=== PATIENT | female | born 1965 | race American Indian/Alaskan Native ===

== ENCOUNTER 2017-04-04 13:10 | Emergency (ER) | payer MEDICAID ==
[2017-04-04 13:47] VITALS: BP 141/60
--- NOTE | 2017-04-04 14:09 | EDM.PDOC ---
[id number] SOMETHING ON BACK BOTHERING HER Time Seen by Provider: 04/04/17 14:12 Source of Information: Reports: Patient, RN, RN Notes Reviewed History Limitations: Reports: No Limitations - History of Present Illness INITIAL COMMENTS - FREE TEXT/NARRATIVE: Complaining of a sore red area in the "fat creases" of the midline mid-back. Onset 3 days ago, getting worse. Denies injury, fever or chills. Severity: Moderate Improves with: Reports: None Worsens with: Reports: None Associated Symptoms: Reports: No Other Symptoms Middle Back Pain Score (Numeric/FACES): 7 - Related Data Allergies Allergy/AdvReac Type Severity Reaction Status Date / Time Penicillins Allergy Other Verified 04/04/17 13:49 another antibiotic Allergy Cannot Uncoded 04/04/17 13:49 Remember Home Meds: Home Meds Albuterol [Proventil Neb Soln] 2.5 mg NEB Q4H PRN 02/03/15 [History] Ferrous Sulfate 325 mg PO DAILY 02/03/15 [History] Insulin Aspart [NovoLOG] 67 units SQ TID 02/03/15 [History] Insulin Glarg,Human.Rec.Analog [Lantus Solostar] 110 units SQ DAILY 02/03/15 [ History] Levothyroxine [Synthroid] 100 mcg PO DAILY 02/03/15 [History] Lisinopril 20 mg PO DAILY 02/03/15 [History] Magnesium Oxide 400 mg PO BID 02/03/15 [History] Omeprazole 20 mg PO DAILY 02/03/15 [History] Tiotropium [Spiriva Handihaler] 18 mcg INH DAILY 02/03/15 [History] Albuterol/Ipratropium [DuoNeb 3.0-0.5 MG/3 ML] 3 ml NEB Q6H PRN 03/06/15 [ History] Fluticasone/Salmeterol [Advair 250-50] 1 puff INH BID 03/06/15 [History] Insulin Glarg,Human.Rec.Analog [Lantus Solostar] 100 unit SUBCUT BEDTIME [History] Lactulose [Cephulac] 30 gm PO Q6H #30 cup 03/07/15 [Rx] Sennosides/Docusate Sodium [Senna S Tablet] 2 tab PO DAILY 12/17/16 [History] Fluticasone Furoate [Flonase Sensimist] 1 ml NS PRN 04/04/17 [History] Past Medical History HEENT History: Reports: Impaired Vision Cardiovascular History: Reports: Hypertension Respiratory History: Reports: Asthma, COPD, Other (See Below) Other Respiratory History: Empysema Gastrointestinal History: Reports: Cholelithiasis, Cirrhosis, GERD Genitourinary History: Reports: UTI, Recurrent EEG 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 Musculoskeletal History: Reports: None Neurological History: Reports: None Psychiatric History: Reports: None Endocrine/Metabolic History: Reports: Diabetes, Type II, Hypothyroidism, IDDM, Obesity/BMI 30+ Hematologic History: Reports: None Immunologic History: Reports: None Oncologic (Cancer) History: Reports: None Dermatologic History: Reports: None Other Dermatologic History: skin thick and discolored to extremities - Infectious Disease History Infectious Disease History: Reports: MRSA - Past Surgical History Head Surgeries/Procedures: Reports: None GI Surgical History: Reports: Cholecystectomy, Hernia Repair/Other Social & Family History - Family History Family Medical History: Noncontributory - Tobacco Use Smoking Status *Q: Never Smoker Years of Tobacco use: 10 Used Tobacco, but Quit: Yes Month Tobacco Last Used: october Second Hand Smoke Exposure: No - Caffeine Use Caffeine Use: Reports: Soda, Tea - Alcohol Use Days Per Week of Alcohol Use: 0 - Recreational Drug Use Recreational Drug Use: No - Living Situation & Occupation Living situation: Reports: , with Family Occupation: Unemployed ED ROS GENERAL - Review of Systems Review Of Systems: ROS reveals no pertinent complaints other than HPI. ED EXAM, GENERAL - Physical Exam Exam: See Below Exam Limited By: No Limitations General Appearance: Obese (morbidly) Head: Atraumatic, Normocephalic Neck: Normal Inspection, Supple, Non-Tender, Full Range of Motion Respiratory/Chest: No Respiratory Distress, Lungs Clear, Normal Breath Sounds, No Accessory Muscle Use, Chest Non-Tender Cardiovascular: Normal Peripheral Pulses, Regular Rate, Rhythm, No Edema, No Gallop, No JVD, No Murmur, No Rub Back Exam: Normal Inspection, Full Range of Motion, NT Extremities: Normal Inspection, Normal Range of Motion, Non-Tender, Normal Capillary Refill, No Pedal Edema Neurological: Alert, Oriented, CN II-XII Intact, Normal Cognition, Normal Gait, Normal Reflexes, No Motor/Sensory Deficits Psychiatric: Normal Affect, Normal Mood Skin Exam: Other (midline midback with 4cm x 2cm area of erythema with increased warmth and tenderness. Nonfluctuant.) Lymphatic: No Adenopathy Course - Vital Signs Last Recorded V/S: Last Vital Signs Temp 37.2 C 04/04/17 13:46 Pulse 93 04/04/17 13:46 Resp 22 H 04/04/17 13:46 BP 141/60 H 04/04/17 13:46 Pulse Ox 92 L 04/04/17 13:46 - Orders/Labs/Meds Meds: Medications Discontinued Medications Generic Name Dose Route Start Last Admin Trade Name Navneetq PRN Reason Stop Dose Admin Clindamycin HCl 300 mg 04/04/17 14:12 04/04/17 14:24 Cleocin PO 04/04/17 14:13 300 mg ONETIME ONE Administration Fluconazole 200 mg 04/04/17 14:12 04/04/17 14:25 Diflucan PO 04/04/17 14:13 200 mg ONETIME ONE Administration Departure - Departure Time of Disposition: 14:13 Disposition: Home, Self-Care 01 Condition: good Clinical Impression: Cellulitis of back, Candidiasis, skin or nails - Discharge Information Instructions: Cellulitis, Adult, [id number], Skin Yeast Infection Forms: ED Department Discharge Additional Instructions: RX: Clindamycin 300mg. RX: Bactroban ointment 2%. RX: Diflucan 100mg. Follow up clinic with Dr. Casillas next week.
[2017-04-04] MEDS ORDERED: Clindamycin HCl 150 MG Cap PO ONE (14:12)
[2017-04-04] MEDS ORDERED: Fluconazole 100 MG Tab PO ONE (14:12)
== END 2017-04-04 14:30 | disposition home or self-care (01) ==
LOC: DL.ED 13:10
DX: L03.312 Cellulitis of back [any part except buttock and flank] (principal); B37.2 Candidiasis of skin and nail; H54.7 Unspecified visual loss; I10 Essential (primary) hypertension; J45.909 Unspecified asthma, uncomplicated; J44.1 Chronic obstructive pulmonary disease with (acute) exacerbation; E11.9 Type 2 diabetes mellitus without complications; E03.9 Hypothyroidism, unspecified; E66.9 Obesity, unspecified; Z98.890 Other specified postprocedural states; Z88.0 Allergy status to penicillin; Z88.1 Allergy status to other antibiotic agents; Z79.84 Long term (current) use of oral hypoglycemic drugs; Z79.899 Other long term (current) drug therapy; Z68.43 Body mass index [BMI] 50.0-59.9, adult
CPT/HCPCS: 99283; A9270

== ENCOUNTER 2017-04-17 09:02 | Emergency (ER) | payer MEDICAID ==
--- NOTE | 2017-04-17 09:33 | EDM.PDOC ---
ED HPI GENERAL MEDICAL PROBLEM - General Chief Complaint: Gastrointestinal Problem Stated Complaint: STOMACH PAINS Time Seen by Provider: 04/17/17 09:15 Source of Information: Reports: Patient History Limitations: Reports: No Limitations - History of Present Illness INITIAL COMMENTS - FREE TEXT/NARRATIVE: This 52 yo female patient reports to the ED with lower abdominal pain for the past week. The patient reports frequent urination and dysuria. The patient reports she was seen by a GI specialist 2 days ago but did not mention her current symptoms. The patient has not been seen in the clinic for her current symptoms. The patient also reports she has chronic lower back pain, but no doctor will treat her pain. The patient was seen in the ED 2 weeks ago for a cellulitis on her back and was started on Clindamycin. The patient reports she took the medication for 2 days, but quit taking it because it made her side hurt. The patient was supposed to follow-up with her primary care facility last week, but the patient did not get an appointment due to her primary care provider leaving the clinic. Onset Date: 04/10/17 Duration: Constant, Getting Worse Location: Reports: Abdomen (lower abdomen) Quality: Reports: Ache, Dull Severity: Moderate Improves with: Reports: None Worsens with: Reports: None Context: Reports: Other Associated Symptoms: Reports: No Other Symptoms Lower Pelvic Pain Score (Numeric/FACES): 7 - Related Data Allergies Allergy/AdvReac Type Severity Reaction Status Date / Time Penicillins Allergy Other Verified 04/17/17 09:13 another antibiotic Allergy Cannot Uncoded 04/17/17 09:13 Remember Home Meds: Home Meds Albuterol [Proventil Neb Soln] 2.5 mg NEB Q4H PRN 02/03/15 [History] Ferrous Sulfate 325 mg PO DAILY 02/03/15 [History] Insulin Aspart [NovoLOG] 67 units SQ TID 02/03/15 [History] Insulin Glarg,Human.Rec.Analog [Lantus Solostar] 110 units SQ DAILY 02/03/15 [ History] Levothyroxine [Synthroid] 100 mcg PO DAILY 02/03/15 [History] Lisinopril 20 mg PO DAILY 02/03/15 [History] Magnesium Oxide 400 mg PO BID 02/03/15 [History] Omeprazole 20 mg PO DAILY 02/03/15 [History] Tiotropium [Spiriva Handihaler] 18 mcg INH DAILY 02/03/15 [History] Albuterol/Ipratropium [DuoNeb 3.0-0.5 MG/3 ML] 3 ml NEB Q6H PRN 03/06/15 [ History] Fluticasone/Salmeterol [Advair 250-50] 1 puff INH BID 03/06/15 [History] Insulin Glarg,Human.Rec.Analog [Lantus Solostar] 100 unit SUBCUT BEDTIME [History] Lactulose [Cephulac] 30 gm PO Q6H #30 cup 03/07/15 [Rx] Sennosides/Docusate Sodium [Senna S Tablet] 2 tab PO DAILY 12/17/16 [History] Fluticasone Furoate [Flonase Sensimist] 1 ml NS DAILY PRN 04/04/17 [History] Past Medical History HEENT History: Reports: Impaired Vision Cardiovascular History: Reports: Hypertension Respiratory History: Reports: Asthma, COPD, Other (See Below) Other Respiratory History: Empysema Gastrointestinal History: Reports: Cholelithiasis, Cirrhosis, GERD Genitourinary History: Reports: UTI, Recurrent 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 Musculoskeletal History: Reports: None Neurological History: Reports: None Psychiatric History: Reports: None Endocrine/Metabolic History: Reports: Diabetes, Type II, Hypothyroidism, IDDM, Obesity/BMI 30+ Hematologic History: Reports: None Immunologic History: Reports: None Oncologic (Cancer) History: Reports: None Dermatologic History: Reports: None Other Dermatologic History: skin thick and discolored to extremities - Infectious Disease History Infectious Disease History: Reports: MRSA - Past Surgical History Head Surgeries/Procedures: Reports: None GI Surgical History: Reports: Cholecystectomy, Hernia Repair/Other Social & Family History - Family History Family Medical History: Noncontributory - Tobacco Use Smoking Status *Q: Never Smoker Years of Tobacco use: 10 Used Tobacco, but Quit: Yes Month Tobacco Last Used: october Second Hand Smoke Exposure: No - Caffeine Use Caffeine Use: Reports: Soda, Tea - Alcohol Use Days Per Week of Alcohol Use: 0 - Recreational Drug Use Recreational Drug Use: No - Living Situation & Occupation Living situation: Reports: , with Family Occupation: Unemployed ED ROS GENERAL - Review of Systems Review Of Systems: ROS reveals no pertinent complaints other than HPI. ED EXAM, GI/ABD - Physical Exam Exam: See Below Exam Limited By: No Limitations General Appearance: Alert, WD/WN, Mild Distress, Obese (morbid obesity) Eyes: Bilateral: Normal Appearance, EOMI Ears: Normal External Exam, Normal Canal, Hearing Grossly Normal, Normal TMs Nose: Normal Inspection, Normal Mucosa, No Blood Throat/Mouth: Normal Inspection, Normal Lips, Normal Teeth, Normal Gums, Normal Oropharynx, Normal Voice, No Airway Compromise Head: Atraumatic, Normocephalic Neck: Normal Inspection, Supple, Non-Tender, Full Range of Motion Respiratory/Chest: No Respiratory Distress, Lungs Clear, Normal Breath Sounds, No Accessory Muscle Use, Chest Non-Tender Cardiovascular: Normal Peripheral Pulses, Regular Rate, Rhythm, No Edema, No Gallop, No JVD, No Murmur, No Rub GI/Abdominal: Normal Bowel Sounds, Soft, Non-Tender, No Organomegaly, No Distention, No Abnormal Bruit, No Mass, Pelvis Stable, Other (morbid obesity) (Female) Exam: Deferred Rectal (Female) Exam: Deferred Back Exam: Normal Inspection, Full Range of Motion Extremities: Normal Inspection, Normal Range of Motion, Non-Tender, Normal Capillary Refill, No Pedal Edema Neurological: Alert, Oriented, CN II-XII Intact, Normal Cognition, Normal Gait, Normal Reflexes, No Motor/Sensory Deficits Psychiatric: Normal Affect, Normal Mood Skin Exam: Warm, Dry, Intact, Normal Color, No Rash Lymphatic: No Adenopathy Course - Vital Signs Last Recorded V/S: Last Vital Signs Temp 36.2 C 04/17/17 11:50 Pulse 69 04/17/17 11:50 Resp 18 04/17/17 11:50 BP 139/71 04/17/17 11:50 Pulse Ox 93 L 04/17/17 11:50 - Orders/Labs/Meds Orders: Active Orders 24 hr Category Date Time Status Abdomen Pelvis w Cont [CT] Urgent Exams 04/17/17 10:32 Taken Labs: Laboratory Tests 04/17/17 04/17/17 04/17/17 Range/Units 09:30 09:30 10:03 WBC 4.0 L (5.0-10.0) 10^3/uL RBC 4.54 (4.2-5.4) 10^6/uL Hgb 15.6 (12.0-16.0) g/dL Hct 45.9 (37.0-47.0) % MCV 101.1 H (80-100) fL MCH 34.4 H (27.0-34.0) pg MCHC 34.0 (33.0-35.0) g/dL Plt Count 83 L (150-450) 10^3/uL Neut % (Auto) 49.9 (42.2-75.2) % Lymph % (Auto) 32.8 (20.5-50.1) % [place] % (Auto) 11.4 H (2-8) % Eos % (Auto) 5.6 H (1.0-3.0) % Baso % (Auto) 0.3 (0.0-1.0) % Sodium 139 (135-145) mmol/L Potassium 4.1 (3.6-5.0) mmol/L Chloride 106 (101-111) mmol/L Carbon Dioxide 23.0 (21.0-31.0) mmol/L Anion Gap 14.1 BUN 9 (7-18) mg/dL Creatinine 0.4 L (0.6-1.3) mg/dL Est Cr Clr Drug Dosing 138.84 mL/min Estimated GFR (MDRD) > 60 BUN/Creatinine Ratio 22.50 Glucose 127 H (74-105) mg/dL Calcium 8.8 (8.4-10.2) mg/dl Total Bilirubin 1.4 H (0.2-1.0) mg/dL AST 45 H (10-42) IU/L ALT 24 (10-60) IU/L Alkaline Phosphatase 151 H (42-121) IU/L Total Protein 7.4 (6.7-8.2) g/dl Albumin 2.9 L (3.2-5.5) g/dl Globulin 4.5 Albumin/Globulin Ratio 0.64 Amylase 71 (28-100) U/L Lipase 40 (22-51) U/L Urine Color (YELLOW) Urine Appearance (CLEAR) Urine pH (5.0-9.0) Ur Specific [place] (1.005-1.030) Urine Protein (NEGATIVE) Urine Glucose (UA) (NEGATIVE) Urine Ketones (NEGATIVE) Urine Occult Blood (NEGATIVE) Urine Nitrite (NEGATIVE) Urine Bilirubin (NEGATIVE) Urine Urobilinogen (0.2-1.0) mg/dL Ur Leukocyte Esterase (NEGATIVE) Urine RBC /HPF Urine WBC (0-5/HPF) /HPF Ur Epithelial Cells /HPF Urine Bacteria (0-FEW/HPF) /HPF Urine Mucus /LPF Urine Opiates Screen Negative (NEGATIVE) Ur Oxycodone Screen Negative (NEGATIVE) Urine Methadone Screen Negative (NEGATIVE) Ur Barbiturates Screen Negative (NEGATIVE) U Tricyclic Antidepress Negative (NEGATIVE) Ur Phencyclidine Scrn Negative (NEGATIVE) Ur Amphetamine Screen Negative (NEGATIVE) U Methamphetamines Scrn Negative (NEGATIVE) Urine MDMA Screen Negative (NEGATIVE) U Benzodiazepines Scrn Negative (NEGATIVE) Urine Cocaine Screen Negative (NEGATIVE) U Marijuana (THC) Screen Negative (NEGATIVE) 04/17/17 Range/Units 10:03 WBC (5.0-10.0) 10^3/uL RBC (4.2-5.4) 10^6/uL Hgb (12.0-16.0) g/dL Hct (37.0-47.0) % MCV (80-100) fL MCH (27.0-34.0) pg MCHC (33.0-35.0) g/dL Plt Count (150-450) 10^3/uL Neut % (Auto) (42.2-75.2) % Lymph % (Auto) (20.5-50.1) % [place] % (Auto) (2-8) % Eos % (Auto) (1.0-3.0) % Baso % (Auto) (0.0-1.0) % Sodium (135-145) mmol/L Potassium (3.6-5.0) mmol/L Chloride (101-111) mmol/L Carbon Dioxide (21.0-31.0) mmol/L Anion Gap BUN (7-18) mg/dL Creatinine (0.6-1.3) mg/dL Est Cr Clr Drug Dosing mL/min Estimated GFR (MDRD) BUN/Creatinine Ratio Glucose (74-105) mg/dL Calcium (8.4-10.2) mg/dl Total Bilirubin (0.2-1.0) mg/dL AST (10-42) IU/L ALT (10-60) IU/L Alkaline Phosphatase (42-121) IU/L Total Protein (6.7-8.2) g/dl Albumin (3.2-5.5) g/dl Globulin Albumin/Globulin Ratio Amylase (28-100) U/L Lipase (22-51) U/L Urine Color Straw (YELLOW) Urine Appearance Clear (CLEAR) Urine pH 6.5 (5.0-9.0) Ur Specific [place] 1.020 (1.005-1.030) Urine Protein Negative (NEGATIVE) Urine Glucose (UA) Negative (NEGATIVE) Urine Ketones Negative (NEGATIVE) Urine Occult Blood Negative (NEGATIVE) Urine Nitrite Negative (NEGATIVE) Urine Bilirubin Negative (NEGATIVE) Urine Urobilinogen 0.2 (0.2-1.0) mg/dL Ur Leukocyte Esterase Negative (NEGATIVE) Urine RBC Not seen /HPF Urine WBC Not seen (0-5/HPF) /HPF Ur Epithelial Cells Moderate H /HPF Urine Bacteria Rare (0-FEW/HPF) /HPF Urine Mucus Few H /LPF Urine Opiates Screen (NEGATIVE) Ur Oxycodone Screen (NEGATIVE) Urine Methadone Screen (NEGATIVE) Ur Barbiturates Screen (NEGATIVE) U Tricyclic Antidepress (NEGATIVE) Ur Phencyclidine Scrn (NEGATIVE) Ur Amphetamine Screen (NEGATIVE) U Methamphetamines Scrn (NEGATIVE) Urine MDMA Screen (NEGATIVE) U Benzodiazepines Scrn (NEGATIVE) Urine Cocaine Screen (NEGATIVE) U Marijuana (THC) Screen (NEGATIVE) Meds: Medications Discontinued Medications Generic Name Dose Route Start Last Admin Trade Name Freq PRN Reason Stop Dose Admin Iopamidol 100 ml 04/17/17 10:32 Isovue-300 (61%) IVPUSH 04/17/17 10:33 ONETIME ONE Iopamidol 50 ml 04/17/17 10:42 04/17/17 10:59 Isovue-300 (61%) IVPUSH 04/17/17 10:43 50 ml ONETIME ONE Administration Iopamidol 75 ml 04/17/17 10:43 04/17/17 10:59 Isovue-300 (61%) IVPUSH 04/17/17 10:44 75 ml ONETIME ONE Administration Departure - Departure Time of Disposition: 12:00 Disposition: DC/Tfer to [facility] 02 Condition: Fair Clinical Impression: Hernia of small intestine - Discharge Information Forms: Interfacility Transfer EMTALA Care Plan Goals: Discussed the examination, lab and CT results with Dr. Sainz (Hospitalist with [facility] in [place]). Dr. Sainz accepted the patient for continued evaluation and treatment at [facility] in [place]. The patient will be transported by [facility]. - My Orders Last 24 Hours: My Active Orders 04/17/17 10:32 Abdomen Pelvis w Cont [CT] Urgent - Assessment/Plan Last 24 Hours: My Active Orders 04/17/17 10:32 Abdomen Pelvis w Cont [CT] Urgent
[2017-04-17 09:57] LABS: CHLORIDE,CL 106 mmol/L (101-111); SODIUM,NA 139 mmol/L (135-145)
[2017-04-17] MEDS ORDERED: Iopamidol 612 MG/ML 100 ML Bottle IVPUSH ONE (10:32)
[2017-04-17] MEDS ORDERED: Iopamidol 612 MG/ML 50 ML SDV IVPUSH ONE (10:42)
[2017-04-17] MEDS ORDERED: Iopamidol 612 MG/ML 75 ML Bottle IVPUSH ONE (10:43)
[2017-04-17 11:51] VITALS: BP 139/71
--- NOTE | 2017-04-17 12:07 | CT ---
Clinical history: 52-year-old morbidly obese (148 kg) hypertensive and diabetic female with lower ab dominal pain. History of Cholecystectomy. Scan technique: Volume acquisition of data from the abdomen and pelvis obtained without oral contras t but during intravenous administration 125 cc nonionic Isovue contrast while the patient was lying supine on the Siemens multi slice CT scanner [place], [place]. All da ta archived in the PACS system for storage, reformatting and study. Interpretation: Abnormal. 1. Surgical mesh right lower quadrant of the abdomen. 2. Ventral wall defect above the mesh, right of midline, with large herniation intraperitoneal fat ( no bowel). 3.*Midline, ventral wall defect with single herniated (incarcerated) loop of small bowel but no asso ciated signs of mechanical small bowel obstruction at this time. 4. No abdominal or pelvic mass lesion, inflammatory "dirty" peritoneal fat, mechanical bowel obstruc tion, ascites or free air. 5. Surgical clips gallbladder fossa. Normal liver, stomach, spleen, pancreas, adrenal glands and kid neys. Urinary bladder unremarkable. Normal uterus left of midline. 6. Normal caliber aortoiliac vessels. Asthmatic changes lumbar spine. Lung bases clear. CONCLUSION: Two ventral wall hernias (peritoneal fat and bowel loop, respectively). Cholecystectomy. Morbid obes ity.
== END 2017-04-17 12:45 ==
LOC: DL.ED 09:02
DX: K46.9 Unspecified abdominal hernia without obstruction or gangrene (principal); I10 Essential (primary) hypertension; J45.909 Unspecified asthma, uncomplicated; J44.9 Chronic obstructive pulmonary disease, unspecified; K21.9 Gastro-esophageal reflux disease without esophagitis; E11.9 Type 2 diabetes mellitus without complications; E03.9 Hypothyroidism, unspecified; E66.9 Obesity, unspecified; Z90.710 Acquired absence of both cervix and uterus; Z87.440 Personal history of urinary (tract) infections; Z88.0 Allergy status to penicillin; Z88.1 Allergy status to other antibiotic agents; Z79.4 Long term (current) use of insulin; Z79.899 Other long term (current) drug therapy
CPT/HCPCS: 36415; 74177; 80053; 80305; 81001; 82150; 83690; 85025; 99285; Q9967

== ENCOUNTER 2017-06-22 19:00 | Emergency (ER) | payer MEDICAID ==
[2017-06-22 21:03] LABS: CHLORIDE,CL 105 mmol/L (101-111); SODIUM,NA 136 mmol/L (135-145)
[2017-06-22] MEDS ORDERED: Iopamidol 612 MG/ML 100 ML Bottle IVPUSH ONE (22:34)
[2017-06-22] MEDS ORDERED: Morphine 2 MG/ML Syringe IVPUSH ONE (23:28)
[2017-06-22] MEDS ORDERED: Ondansetron 4 MG/2 ML SDV IV ONE (23:29)
[2017-06-22 23:39] VITALS: BP 123/53
--- NOTE | 2017-06-23 04:06 | EDM.PDOC ---
ED HPI GENERAL MEDICAL PROBLEM - General Chief Complaint: Abdominal Pain Stated Complaint: STOMACH PAINS Time Seen by Provider: 06/22/17 22:00 Source of Information: Reports: Patient History Limitations: Reports: No Limitations - History of Present Illness INITIAL COMMENTS - FREE TEXT/NARRATIVE: ED with complaint of left mid abdominal pain starting this am after vomiting following breakfast. Known hx of hernias to abdomen. Intermittent nausea, no further vomiting. No fever. Hx cirrhosis. Takes Lactulose 4 times daily, States is compliant with medication. 4 loose stools today. Onset: Today Duration: Hour(s): Location: Reports: Abdomen Quality: Reports: Ache Severity: Moderate Improves with: Reports: Immobilization Worsens with: Reports: Movement Associated Symptoms: Reports: No Other Symptoms Abdominal Pain Score (Numeric/FACES): 0 - Related Data Allergies Allergy/AdvReac Type Severity Reaction Status Date / Time Penicillins Allergy Other Verified 06/22/17 20:08 another antibiotic Allergy Cannot Uncoded 04/17/17 09:13 Remember Home Meds: Home Meds Albuterol [Proventil Neb Soln] 2.5 mg NEB Q4H PRN 02/03/15 [History] Ferrous Sulfate 325 mg PO DAILY 02/03/15 [History] Insulin Aspart [NovoLOG] 67 units SQ TID 02/03/15 [History] Levothyroxine [Synthroid] 100 mcg PO DAILY 02/03/15 [History] Lisinopril 20 mg PO DAILY 02/03/15 [History] Magnesium Oxide 400 mg PO BID 02/03/15 [History] Omeprazole 20 mg PO DAILY 02/03/15 [History] Tiotropium [Spiriva Handihaler] 18 mcg INH DAILY 02/03/15 [History] Albuterol/Ipratropium [DuoNeb 3.0-0.5 MG/3 ML] 3 ml NEB Q6H PRN 03/06/15 [ History] Fluticasone/Salmeterol [Advair 250-50] 1 puff INH BID 03/06/15 [History] Insulin Glarg,Human.Rec.Analog [Lantus Solostar] 30 unit SUBCUT BEDTIME [History] Sennosides/Docusate Sodium [Senna S Tablet] 2 tab PO ASDIRECTED 12/17/16 [ History] Fluticasone Furoate [Flonase Sensimist] 1 ml NS DAILY PRN 04/04/17 [History] Lactulose [Cephulac] 45 ml PO Q6H 06/22/17 [History] Past Medical History HEENT History: Reports: Impaired Vision Cardiovascular History: Reports: Hypertension Respiratory History: Reports: Asthma, COPD, Other (See Below) Other Respiratory History: Empysema Gastrointestinal History: Reports: Cholelithiasis, Cirrhosis, GERD Genitourinary History: Reports: UTI, Recurrent 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, Musculoskeletal History: Reports: None, Arthritis, Back Pain, Chronic Neurological History: Reports: None Psychiatric History: Reports: None Endocrine/Metabolic History: Reports: Diabetes, Type II, Hypothyroidism, IDDM, Obesity/BMI 30+ Hematologic History: Reports: None Immunologic History: Reports: None Oncologic (Cancer) History: Reports: None Dermatologic History: Reports: None Other Dermatologic History: skin thick and discolored to extremities - Infectious Disease History Infectious Disease History: Reports: MRSA - Past Surgical History Head Surgeries/Procedures: Reports: None GI Surgical History: Reports: Cholecystectomy, Hernia Repair/Other Female Surgical History: Reports: Section Musculoskeletal Surgical History: Reports: Other (See Below) Other Musculoskeletal Surgeries/Procedures:: Emil in left leg. Femur bone with pins in knee Social & Family History - Family History Family Medical History: Noncontributory - Tobacco Use Smoking Status *Q: Never Smoker Years of Tobacco use: 10 Used Tobacco, but Quit: Yes Month Tobacco Last Used: october Second Hand Smoke Exposure: No - Caffeine Use Caffeine Use: Reports: Soda, Tea - Alcohol Use Days Per Week of Alcohol Use: 0 - Recreational Drug Use Recreational Drug Use: No - Living Situation & Occupation Living situation: Reports: , with Family Occupation: Unemployed ED ROS GENERAL - Review of Systems Review Of Systems: See Below Constitutional: Reports: No Symptoms HEENT: Reports: No Symptoms Cardiovascular: Reports: No Symptoms Endocrine: Reports: No Symptoms GI/Abdominal: Reports: Abdominal Pain : Reports: No Symptoms Musculoskeletal: Reports: No Symptoms Skin: Reports: No Symptoms Neurological: Reports: No Symptoms ED EXAM, GI/ABD - Physical Exam Exam: See Below Exam Limited By: No Limitations General Appearance: Alert, Mild Distress, Obese (morbid) Eyes: Bilateral: EOMI Ears: Normal External Exam Nose: Normal Inspection Throat/Mouth: Normal Inspection, Normal Lips Head: Atraumatic, Normocephalic Neck: Normal Inspection, Non-Tender, Full Range of Motion, Tender Lateral Respiratory/Chest: No Respiratory Distress, No Accessory Muscle Use, Decreased Breath Sounds Cardiovascular: Normal Peripheral Pulses, Regular Rate, Rhythm GI/Abdominal Exam: Soft. No: Distended, Guarding Extremities: Normal Inspection Neurological: Alert, Oriented Psychiatric: Normal Affect Skin Exam: Warm, Dry, Intact, Normal Color Course - Vital Signs Last Recorded V/S: Last Vital Signs Temp 96.4 F 06/22/17 23:38 Pulse 64 06/22/17 23:38 Resp 20 06/22/17 23:38 BP 123/53 L 06/22/17 23:38 Pulse Ox 96 06/22/17 23:38 - Orders/Labs/Meds Orders: Active Orders 24 hr Category Date Time Status Glucose [Blood Glucose Check, Bedside] [RC] ONETIME Care 06/22/17 23:35 Active Labs: Laboratory Tests 06/22/17 06/22/17 06/22/17 Range/Units 20:22 20:35 20:35 WBC 4.2 L (5.0-10.0) 10^3/uL RBC 4.27 (4.2-5.4) 10^6/uL Hgb 14.8 (12.0-16.0) g/dL Hct 43.3 (37.0-47.0) % MCV 101.4 H (80-100) fL MCH 34.7 H (27.0-34.0) pg MCHC 34.2 (33.0-35.0) g/dL Plt Count 73 L (150-450) 10^3/uL Neut % (Auto) 61.1 (42.2-75.2) % Lymph % (Auto) 22.7 (20.5-50.1) % Crawford % (Auto) 11.2 H (2-8) % Eos % (Auto) 4.5 H (1.0-3.0) % Baso % (Auto) 0.5 (0.0-1.0) % Sodium 136 (135-145) mmol/L Potassium 4.1 (3.6-5.0) mmol/L Chloride 105 (101-111) mmol/L Carbon Dioxide 23.0 (21.0-31.0) mmol/L Anion Gap 12.1 BUN 10 (7-18) mg/dL Creatinine 0.6 (0.6-1.3) mg/dL Est Cr Clr Drug Dosing 92.56 mL/min Estimated GFR (MDRD) > 60 BUN/Creatinine Ratio 16.66 Glucose 210 H (74-105) mg/dL POC Glucose (70-105) mg/dl Calcium 8.5 (8.4-10.2) mg/dl Total Bilirubin 1.6 H (0.2-1.0) mg/dL AST 48 H (10-42) IU/L ALT 29 (10-60) IU/L Alkaline Phosphatase 172 H (42-121) IU/L Ammonia (11-35) umol/L Total Protein 7.1 (6.7-8.2) g/dl Albumin 2.7 L (3.2-5.5) g/dl Globulin 4.4 Albumin/Globulin Ratio 0.61 Amylase 65 (28-100) U/L Lipase 38 (22-51) U/L Urine Color Yellow (YELLOW) Urine Appearance Cloudy (CLEAR) Urine pH 6.0 (5.0-9.0) Ur Specific [place] 1.025 (1.005-1.030) Urine Protein Trace H (NEGATIVE) Urine Glucose (UA) 250 H (NEGATIVE) Urine Ketones Trace H (NEGATIVE) Urine Occult Blood Negative (NEGATIVE) Urine Nitrite Negative (NEGATIVE) Urine Bilirubin Small H (NEGATIVE) Urine Urobilinogen 2.0 H (0.2-1.0) mg/dL Ur Leukocyte Esterase Trace H (NEGATIVE) Urine RBC 0-5 /HPF Urine WBC 5-10 H (0-5/HPF) /HPF Ur Epithelial Cells Many H /HPF Urine Bacteria Moderate H (0-FEW/HPF) /HPF Urine Mucus Few H /LPF Ethyl Alcohol < 5 mg/dL 06/22/17 06/22/17 Range/Units 20:35 23:42 WBC (5.0-10.0) 10^3/uL RBC (4.2-5.4) 10^6/uL Hgb (12.0-16.0) g/dL Hct (37.0-47.0) % MCV (80-100) fL MCH (27.0-34.0) pg MCHC (33.0-35.0) g/dL Plt Count (150-450) 10^3/uL Neut % (Auto) (42.2-75.2) % Lymph % (Auto) (20.5-50.1) % Crawford % (Auto) (2-8) % Eos % (Auto) (1.0-3.0) % Baso % (Auto) (0.0-1.0) % Sodium (135-145) mmol/L Potassium (3.6-5.0) mmol/L Chloride (101-111) mmol/L Carbon Dioxide (21.0-31.0) mmol/L Anion Gap BUN (7-18) mg/dL Creatinine (0.6-1.3) mg/dL Est Cr Clr Drug Dosing mL/min Estimated GFR (MDRD) BUN/Creatinine Ratio Glucose (74-105) mg/dL POC Glucose 132 H (70-105) mg/dl Calcium (8.4-10.2) mg/dl Total Bilirubin (0.2-1.0) mg/dL AST (10-42) IU/L ALT (10-60) IU/L Alkaline Phosphatase (42-121) IU/L Ammonia 85 H (11-35) umol/L Total Protein (6.7-8.2) g/dl Albumin (3.2-5.5) g/dl Globulin Albumin/Globulin Ratio Amylase (28-100) U/L Lipase (22-51) U/L Urine Color (YELLOW) Urine Appearance (CLEAR) Urine pH (5.0-9.0) Ur Specific [place] (1.005-1.030) Urine Protein (NEGATIVE) Urine Glucose (UA) (NEGATIVE) Urine Ketones (NEGATIVE) Urine Occult Blood (NEGATIVE) Urine Nitrite (NEGATIVE) Urine Bilirubin (NEGATIVE) Urine Urobilinogen (0.2-1.0) mg/dL Ur Leukocyte Esterase (NEGATIVE) Urine RBC /HPF Urine WBC (0-5/HPF) /HPF Ur Epithelial Cells /HPF Urine Bacteria (0-FEW/HPF) /HPF Urine Mucus /LPF Ethyl Alcohol mg/dL Meds: Medications Discontinued Medications Generic Name Dose Route Start Last Admin Trade Name Freq PRN Reason Stop Dose Admin Iopamidol 100 ml 06/22/17 22:34 06/22/17 22:40 Isovue-300 (61%) IVPUSH 06/22/17 22:35 100 ml ONETIME ONE Administration Morphine Sulfate 2 mg 06/22/17 23:28 06/22/17 23:35 Morphine IVPUSH 06/22/17 23:29 2 mg ONETIME ONE Administration Ondansetron HCl 4 mg 06/22/17 23:29 06/22/17 23:34 Zofran IV 06/22/17 23:30 4 mg ONETIME ONE Administration - Radiology Interpretation Free Text/Narrative:: CT abdomen with contrast multiple abdominal hernias with appearance of small section of tranverse colon with in wall of hernia with mild inflammation. - Re-Assessments/Exams Free Text/Narrative Re-Assessment/Exam: 06/23/17 04:[address] Aaron, accepting of patient for further eval and management of probable incarcerated hernia. Tx via [facility] in stable condition Departure - Departure Time of Disposition: 00:10 Disposition: DC/Tfer to Acute Hospital 02 Condition: Undetermined Clinical Impression: Abdominal pain Qualifiers: Abdominal location: generalized Qualified Code(s): R10.84 - Generalized abdominal pain Abdominal hernia Qualifiers: Hernia type: incisional Obstruction and gangrene presence: with obstruction but without gangrene Qualified Code(s): K43.0 - Incisional hernia with obstruction, without gangrene - Discharge Information Forms: ED Department Discharge - My Orders Last 24 Hours: My Active Orders 06/22/17 23:35 Glucose [Blood Glucose Check, Bedside] [] ONETIME - Assessment/Plan Last 24 Hours: My Active Orders 06/22/17 23:35 Glucose [Blood Glucose Check, Bedside] [RC] ONETIME
== END 2017-06-23 00:22 ==
LOC: DL.ED 19:00
DX: K43.0 Incisional hernia with obstruction, without gangrene (principal); H54.7 Unspecified visual loss; I10 Essential (primary) hypertension; J44.9 Chronic obstructive pulmonary disease, unspecified; K21.9 Gastro-esophageal reflux disease without esophagitis; E11.9 Type 2 diabetes mellitus without complications; E03.9 Hypothyroidism, unspecified; E66.9 Obesity, unspecified; Z87.440 Personal history of urinary (tract) infections; Z88.0 Allergy status to penicillin; Z88.1 Allergy status to other antibiotic agents; Z79.4 Long term (current) use of insulin; Z79.899 Other long term (current) drug therapy
CPT/HCPCS: 36415; 74177; 80053; 81001; 82140; 82150; 82962; 83690; 85025; 96374; 96375; 99285; G0480; J2270; J2405; Q9967

== ENCOUNTER 2017-10-23 12:25 | Emergency (ER) | payer MEDICAID ==
[2017-10-23] MEDS ORDERED: Sodium Chloride 0.9% 10 ML Syringe FLUSH PRN (12:34)
[2017-10-23] MEDS ORDERED: Midazolam 1 MG/ML 2 ML SDV IM ONE ×2 (12:36→13:34)
--- NOTE | 2017-10-23 12:38 | EDM.PDOC ---
ED HPI GENERAL MEDICAL PROBLEM - General Chief Complaint: Neurological Problem Stated Complaint: CAME BY AMBULANCE, CHANGE IN MENTAL STATUS Time Seen by Provider: 10/23/17 12:38 Source of Information: Reports: Patient, EMS, EMS Notes Reviewed, Family, RN, RN Notes Reviewed History Limitations: Reports: Altered Mental Status, Combative/Threatening, Uncooperative - History of Present Illness INITIAL COMMENTS - FREE TEXT/NARRATIVE: Pt brought to the ER per [facility] with altered mental status and combativeness. The patient has a history of liver failure and hepatic encephalopathy. Family states she may not have been taking her medications as directed. They state she began acting combative and confused this morning. Family denies any further problems at this time. Onset: Today, Sudden - Related Data Allergies Allergy/AdvReac Type Severity Reaction Status Date / Time Penicillins Allergy Other Verified 06/22/17 20:08 another antibiotic Allergy Cannot Uncoded 04/17/17 09:13 Remember Home Meds: Home Meds Albuterol [Proventil Neb Soln] 2.5 mg NEB Q4H PRN 02/03/15 [History] Ferrous Sulfate 325 mg PO DAILY 02/03/15 [History] Insulin Aspart [NovoLOG] 67 units SQ TID 02/03/15 [History] Levothyroxine [Synthroid] 100 mcg PO DAILY 02/03/15 [History] Lisinopril 20 mg PO DAILY 02/03/15 [History] Magnesium Oxide 400 mg PO BID 02/03/15 [History] Omeprazole 20 mg PO DAILY 02/03/15 [History] Tiotropium [Spiriva Handihaler] 18 mcg INH DAILY 02/03/15 [History] Albuterol/Ipratropium [DuoNeb 3.0-0.5 MG/3 ML] 3 ml NEB Q6H PRN 03/06/15 [ History] Fluticasone/Salmeterol [Advair 250-50] 1 puff INH BID 03/06/15 [History] Insulin Glarg,Human.Rec.Analog [Lantus Solostar] 30 unit SUBCUT BEDTIME [History] Sennosides/Docusate Sodium [Senna S Tablet] 2 tab PO ASDIRECTED 12/17/16 [ History] Fluticasone Furoate [Flonase Sensimist] 1 ml NS DAILY PRN 04/04/17 [History] Lactulose [Cephulac] 45 ml PO Q6H 06/22/17 [History] Past Medical History HEENT History: Reports: Impaired Vision Cardiovascular History: Reports: Hypertension Respiratory History: Reports: Asthma, COPD, Other (See Below) Other Respiratory History: Empysema Gastrointestinal History: Reports: Cholelithiasis, Cirrhosis, GERD Genitourinary History: Reports: UTI, Recurrent 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, Musculoskeletal History: Reports: None, Arthritis, Back Pain, Chronic Neurological History: Reports: None Psychiatric History: Reports: None Endocrine/Metabolic History: Reports: Diabetes, Type II, Hypothyroidism, IDDM, Obesity/BMI 30+ Hematologic History: Reports: None Immunologic History: Reports: None Oncologic (Cancer) History: Reports: None Dermatologic History: Reports: None Other Dermatologic History: skin thick and discolored to extremities - Infectious Disease History Infectious Disease History: Reports: MRSA - Past Surgical History Head Surgeries/Procedures: Reports: None GI Surgical History: Reports: Cholecystectomy, Hernia Repair/Other Female Surgical History: Reports: Section Musculoskeletal Surgical History: Reports: Other (See Below) Other Musculoskeletal Surgeries/Procedures:: Eiml in left leg. Femur bone with pins in knee Social & Family History - Family History Family Medical History: Noncontributory - Tobacco Use Smoking Status *Q: Never Smoker Years of Tobacco use: 10 Used Tobacco, but Quit: Yes Month Tobacco Last Used: october Second Hand Smoke Exposure: No - Caffeine Use Caffeine Use: Reports: Soda, Tea - Alcohol Use Days Per Week of Alcohol Use: 0 - Recreational Drug Use Recreational Drug Use: No - Living Situation & Occupation Living situation: Reports: , with Family Occupation: Unemployed ED ROS GENERAL - Review of Systems Review Of Systems: ROS reveals no pertinent complaints other than HPI. - Physical Exam Exam: See Below Exam Limited By: No Limitations General Appearance: Alert, Anxious, Moderate Distress Eye Exam: Bilateral Eye: EOMI, Normal Inspection Ears: Normal External Exam, Hearing Grossly Normal Nose: Normal Inspection Throat/Mouth: Normal Inspection, Normal Voice, No Airway Compromise Head Exam: Atraumatic, Normocephalic Neck: Normal Inspection, Supple, Non-Tender, Full Range of Motion Respiratory/Chest: No Respiratory Distress, Lungs Clear, Normal Breath Sounds, No Accessory Muscle Use, Chest Non-Tender Cardiovascular: Normal Peripheral Pulses, Regular Rate, Rhythm, No Gallop, No JVD, No Murmur, No Rub. No: No Edema (+1 ankle edema) GI/Abdominal: Normal Bowel Sounds, Soft, Non-Tender (Female) Exam: Deferred Rectal (Female) Exam: Deferred Neuro Exam (Abbreviated): Alert, CN II-XII Intact, Inattentive, Confused, Disoriented, Memory Loss Remote Events, Memory Loss Recent Events Back Exam: Normal Inspection, Full Range of Motion Extremities: Normal Inspection, Normal Range of Motion, Non-Tender, Normal Capillary Refill, Pedal Edema (+1) Psychiatric: Normal Affect, Normal Mood Skin Exam: Warm, Dry, Intact, Normal Color, No Rash Course - Vital Signs Last Recorded V/S: Last Vital Signs Temp 97.8 F 10/23/17 12:42 Pulse 121 H 10/23/17 12:42 Resp 24 H 10/23/17 12:42 BP 163/111 H 10/23/17 12:42 Pulse Ox 89 L 10/23/17 12:42 - Orders/Labs/Meds Orders: Active Orders 24 hr Category Date Time Status Peripheral IV Care [RC] . DIRECTED Care 10/23/17 12:36 Active Peripheral IV Insertion Adult [OM.PC] Stat Oth 10/23/17 12:34 Ordered Labs: Laboratory Tests 10/23/17 10/23/17 10/23/17 Range/Units 12:48 12:48 12:48 WBC 3.4 L (5.0-10.0) 10^3/uL RBC 4.68 (4.2-5.4) 10^6/uL Hgb 16.4 H D (12.0-16.0) g/dL Hct 47.6 H (37.0-47.0) % MCV 101.7 H (80-100) fL MCH 35.0 H (27.0-34.0) pg MCHC 34.5 (33.0-35.0) g/dL Plt Count 80 L (150-450) 10^3/uL Neut % (Auto) 60.5 (42.2-75.2) % Lymph % (Auto) 27.6 (20.5-50.1) % Cross % (Auto) 9.3 H (2-8) % Eos % (Auto) 2.3 (1.0-3.0) % Baso % (Auto) 0.3 (0.0-1.0) % Sodium 136 (135-145) mmol/L Potassium 4.6 (3.6-5.0) mmol/L Chloride 104 (101-111) mmol/L Carbon Dioxide 23.0 (21.0-31.0) mmol/L Anion Gap 13.6 BUN 14 (7-18) mg/dL Creatinine 0.6 (0.6-1.3) mg/dL Est Cr Clr Drug Dosing 92.56 mL/min Estimated GFR (MDRD) > 60 BUN/Creatinine Ratio 23.33 Glucose 233 H (74-105) mg/dL Calcium 8.8 (8.4-10.2) mg/dl Total Bilirubin 2.0 H (0.2-1.0) mg/dL AST 39 (10-42) IU/L ALT 23 (10-60) IU/L Alkaline Phosphatase 165 H (42-121) IU/L Ammonia 197 H (11-35) umol/L Total Protein 7.8 (6.7-8.2) g/dl Albumin 3.1 L (3.2-5.5) g/dl Globulin 4.7 Albumin/Globulin Ratio 0.66 Meds: Medications Discontinued Medications Generic Name Dose Route Start Last Admin Trade Name Freq PRN Reason Stop Dose Admin Diphenhydramine HCl 50 mg 10/23/17 14:17 10/23/17 14:27 Benadryl IM 10/23/17 14:18 50 mg ONETIME ONE Administration Haloperidol Lactate 10 mg 10/23/17 14:15 10/23/17 14:26 Haldol IM 10/23/17 14:16 10 mg ONETIME ONE Administration Lactulose 20 gm 10/23/17 13:29 10/23/17 13:50 Cephulac PO 10/23/17 13:30 20 gm ONETIME ONE Administration Lactulose Confirm 10/23/17 13:57 10/23/17 14:42 Cephulac Administered 10/23/17 13:58 Not Given Dose 20 gm .ROUTE .STK-MED ONE Lorazepam 2 mg 10/23/17 14:17 10/23/17 14:27 Ativan IM 10/23/17 14:18 2 mg ONETIME ONE Administration Midazolam HCl 2 mg 10/23/17 12:36 10/23/17 12:52 Versed 1 Mg/Ml IM 10/23/17 12:37 2 mg ONETIME ONE Administration Midazolam HCl 2 mg 10/23/17 13:34 10/23/17 13:54 Versed 1 Mg/Ml IM 10/23/17 13:35 2 mg ONETIME ONE Administration Sodium Chloride 10 ml 10/23/17 12:34 Saline Flush FLUSH ASDIRECTED PRN Keep Vein Open Departure - Departure Time of Disposition: 15:44 Disposition: DC/Tfer to Acute Hospital 02 Condition: Poor, Serious Clinical Impression: Hepatic encephalopathy - Discharge Information Referrals: PCP,None [Primary Care Provider] - Forms: ED Department Discharge, Interfacility Transfer EMTALA - My Orders Last 24 Hours: My Active Orders 10/23/17 12:34 Peripheral IV Insertion Adult [OM.PC] Stat 10/23/17 12:36 Peripheral IV Care [RC] . DIRECTED - Assessment/Plan Last 24 Hours: My Active Orders 10/23/17 12:34 Peripheral IV Insertion Adult [OM.PC] Stat 10/23/17 12:36 Peripheral IV Care [RC] . DIRECTED
[2017-10-23 12:44] VITALS: BP 163/111
[2017-10-23 13:15] LABS: CHLORIDE,CL 104 mmol/L (101-111); SODIUM,NA 136 mmol/L (135-145)
[2017-10-23] MEDS ORDERED: Lactulose Soln 10 GM/15 ML 30 ML UD Cup PO ONE (13:29)
[2017-10-23] MEDS ORDERED: Lactulose Soln 10 GM/15 ML 30 ML UD Cup ONE (13:57)
[2017-10-23] MEDS ORDERED: Haloperidol Lactate 5 MG/ML SDV IM ONE (14:15)
[2017-10-23] MEDS ORDERED: diphenhydrAMINE 50 MG/ML SDV IM ONE (14:17)
[2017-10-23] MEDS ORDERED: LORazepam 2 MG/ML Syringe IM ONE (14:17)
== END 2017-10-23 15:35 ==
LOC: DL.ED 12:25
DX: K72.90 Hepatic failure, unspecified without coma (principal); I10 Essential (primary) hypertension; J44.9 Chronic obstructive pulmonary disease, unspecified; K21.9 Gastro-esophageal reflux disease without esophagitis; E11.9 Type 2 diabetes mellitus without complications; E03.9 Hypothyroidism, unspecified; Z87.891 Personal history of nicotine dependence; Z79.4 Long term (current) use of insulin; Z79.899 Other long term (current) drug therapy; Z88.0 Allergy status to penicillin; Z88.1 Allergy status to other antibiotic agents
CPT/HCPCS: 36415; 80053; 82140; 85025; 96372; 99285; A9270; J1200; J1630; J2060; J2250

== ENCOUNTER 2018-12-18 11:15 | Emergency (ER) | payer MEDICAID ==
[2018-12-18 11:27] VITALS: BP 143/57
[2018-12-18] MEDS ORDERED: Clindamycin HCl 150 MG Cap PO ONE (11:40)
--- NOTE | 2018-12-18 11:46 | EDM.PDOC ---
ED HPI GENERAL MEDICAL PROBLEM - General Chief Complaint: Skin Complaint Stated Complaint: BACK AND NECK HURT Time Seen by Provider: 12/18/18 11:35 Source of Information: Reports: Patient History Limitations: Reports: No Limitations - History of Present Illness INITIAL COMMENTS - FREE TEXT/NARRATIVE: This 53 yo female patient reports to the ED with swelling in her posterior neck. The patient reports her symptoms started 3-4 days ago and she has been seen by her primary care facility, but did not mention the neck. The patient reports she has had increased pain in that area with some drainage. Duration: Day(s): (4), Constant, Getting Worse Location: Reports: Neck (posterior) Quality: Reports: Other Severity: Moderate Improves with: Reports: None Worsens with: Reports: None Context: Reports: Other Associated Symptoms: Reports: No Other Symptoms Lower Back Pain Score (Numeric/FACES): 8 - Related Data Allergies Allergy/AdvReac Type Severity Reaction Status Date / Time Penicillins Allergy Other Verified 12/18/18 11:28 another antibiotic Allergy Cannot Uncoded 04/17/17 09:13 Remember Home Meds: Home Meds Albuterol [Proventil Neb Soln] 2.5 mg NEB Q4H PRN 02/03/15 [History] Ferrous Sulfate 325 mg PO DAILY 02/03/15 [History] Insulin Aspart [NovoLOG] 67 units SQ TID 02/03/15 [History] Levothyroxine [Synthroid] 100 mcg PO DAILY 02/03/15 [History] Lisinopril 20 mg PO DAILY 02/03/15 [History] Magnesium Oxide 400 mg PO BID 02/03/15 [History] Omeprazole 20 mg PO DAILY 02/03/15 [History] Tiotropium [Spiriva Handihaler] 18 mcg INH DAILY 02/03/15 [History] Albuterol/Ipratropium [DuoNeb 3.0-0.5 MG/3 ML] 3 ml NEB Q6H PRN 03/06/15 [ History] Fluticasone/Salmeterol [Advair 250-50] 1 puff INH BID 03/06/15 [History] Insulin Glarg,Human.Rec.Analog [Lantus Solostar] 30 unit SUBCUT BEDTIME [History] Sennosides/Docusate Sodium [Senna S Tablet] 2 tab PO ASDIRECTED 12/17/16 [ History] Fluticasone Furoate [Flonase Sensimist] 1 ml NS DAILY PRN 04/04/17 [History] Lactulose [Cephulac] 45 ml PO Q6H 06/22/17 [History] Past Medical History HEENT History: Reports: Impaired Vision Cardiovascular History: Reports: Hypertension Respiratory History: Reports: Asthma, COPD, Other (See Below) Other Respiratory History: Empysema Gastrointestinal History: Reports: Cholelithiasis, Cirrhosis, GERD Genitourinary History: Reports: UTI, Recurrent 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, Musculoskeletal History: Reports: None, Arthritis, Back Pain, Chronic Neurological History: Reports: None Psychiatric History: Reports: None Endocrine/Metabolic History: Reports: Diabetes, Type II, Hypothyroidism, IDDM, Obesity/BMI 30+ Hematologic History: Reports: None Immunologic History: Reports: None Oncologic (Cancer) History: Reports: None Dermatologic History: Reports: None Other Dermatologic History: skin thick and discolored to extremities - Infectious Disease History Infectious Disease History: Reports: MRSA - Past Surgical History Head Surgeries/Procedures: Reports: None GI Surgical History: Reports: Cholecystectomy, Hernia Repair/Other Female Surgical History: Reports: Section Musculoskeletal Surgical History: Reports: Other (See Below) Other Musculoskeletal Surgeries/Procedures:: Emil in left leg. Femur bone with pins in knee Social & Family History - Family History Family Medical History: Noncontributory - Tobacco Use Smoking Status *Q: Never Smoker Second Hand Smoke Exposure: Yes - Caffeine Use Caffeine Use: Reports: Coffee - Recreational Drug Use Recreational Drug Use: No - Living Situation & Occupation Living situation: Reports: , with Family Occupation: Unemployed ED ROS GENERAL - Review of Systems Review Of Systems: ROS reveals no pertinent complaints other than HPI. ED EXAM, SKIN/RASH Exam: See Below Exam Limited By: No Limitations General Appearance: Alert, WD/WN, Mild Distress, Obese Eye Exam: Bilateral Eye: EOMI, Normal Inspection, PERRL Ears: Normal External Exam, Normal Canal, Hearing Grossly Normal, Normal TMs Nose: Normal Inspection, Normal Mucosa, No Blood Throat/Mouth: Normal Inspection, Normal Lips, Normal Teeth, Normal Gums, Normal Oropharynx, Normal Voice, No Airway Compromise Head: Atraumatic, Normocephalic Neck: Normal Inspection, Supple, Non-Tender, Full Range of Motion Respiratory/Chest: No Respiratory Distress, Lungs Clear, Normal Breath Sounds, No Accessory Muscle Use, Chest Non-Tender Cardiovascular: Normal Peripheral Pulses, Regular Rate, Rhythm, No Edema, No Gallop, No JVD, No Murmur, No Rub GI/Abdominal: Normal Bowel Sounds, Soft, Non-Tender, No Organomegaly, No Distention, No Abnormal Bruit, No Mass, Other (morbid obesity) (Female) Exam: Deferred Rectal (Female) Exam: Deferred Back Exam: Normal Inspection, Full Range of Motion, NT Extremities: Normal Inspection, Normal Range of Motion, Non-Tender, No Pedal Edema, Normal Capillary Refill Neurological: Alert, Oriented, CN II-XII Intact, Normal Cognition, Normal Gait, Normal Reflexes, No Motor/Sensory Deficits Psychiatric: Normal Affect, Normal Mood Skin: Erythema Location, Skin: Neck (posterior neck) Characteristics: Erythematous, Other (The patient's posterior neck has diffuse inflammation and very tender to touch. The pt would not allow complete evaluation due to increased pain. ) Associated features: Warmth, Tenderness, Swelling Lymphatic: No Adenopathy Course - Vital Signs Last Recorded V/S: Last Vital Signs Temp 36.9 C 12/18/18 11:23 Pulse 86 12/18/18 11:23 Resp 19 12/18/18 11:23 BP 143/57 H 12/18/18 11:23 Pulse Ox 96 12/18/18 11:23 - Orders/Labs/Meds Meds: Medications Discontinued Medications Generic Name Dose Route Start Last Admin Trade Name Freq PRN Reason Stop Dose Admin Clindamycin HCl 300 mg 12/18/18 11:40 Cleocin PO 12/18/18 11:41 ONETIME ONE Departure - Departure Time of Disposition: 11:46 Disposition: Home, Self-Care 01 Condition: Fair Clinical Impression: Abscess Cellulitis Qualifiers: Site of cellulitis: neck Qualified Code(s): L03.221 - Cellulitis of neck - Discharge Information *PRESCRIPTION DRUG MONITORING PROGRAM REVIEWED*: Yes *COPY OF PRESCRIPTION DRUG MONITORING REPORT IN PATIENT RAY: Yes Instructions: Cellulitis, Adult, Skin Abscess Care Plan Goals: The patient was advised of the examination results during the visit. The patient was given an oral dose of Clindamycin while in the ED. The patient was discharged with a script for Clindamycin (300 mg) to take 1 by mouth 4 times per day for 10 days. The patient should follow-up with her primary care facility for continued evaluation and further management. If the patient has any additional symptoms or concerns, the patient should either visit her primary care facility or return to the emergency department.
== END 2018-12-18 11:58 | disposition home or self-care (01) ==
LOC: DL.ED 11:15
DX: L03.221 Cellulitis of neck (principal); L02.11 Cutaneous abscess of neck; E11.9 Type 2 diabetes mellitus without complications; E03.9 Hypothyroidism, unspecified; I10 Essential (primary) hypertension; Z79.4 Long term (current) use of insulin; Z79.899 Other long term (current) drug therapy; Z88.0 Allergy status to penicillin; Z88.1 Allergy status to other antibiotic agents; E66.01 Morbid (severe) obesity due to excess calories
CPT/HCPCS: 99282; A9270

== ENCOUNTER 2018-12-26 15:21 | Emergency (ER) | payer MEDICAID, OTHER ==
[2018-12-26] MEDS ORDERED: Ibuprofen 600 MG Tab PO ONE (15:56)
[2018-12-26 16:31] VITALS: BP 138/55
[2018-12-26] MEDS ORDERED: traMADol 50 MG Tab PO ONE (17:25)
--- NOTE | 2018-12-26 17:29 | EDM.PDOC ---
<Yuliet Watt - Last Filed: 12/26/18 18:59> ED HPI GENERAL MEDICAL PROBLEM - General Chief Complaint: Lower Extremity Injury/Pain Stated Complaint: SLIPPED ON DECK (EMIL IN LEFT LEG) Time Seen by Provider: 12/26/18 15:48 - History of Present Illness INITIAL COMMENTS - FREE TEXT/NARRATIVE: Patient presents to the Emergency department with complaints of left hip, knee, and ankle pain. She was walking on a deck when she slipped on ice and rolled her ankle and her knee bent behind her. She rates her pain a 9/10 and states it is most severe in her hip. She has not taken anything for pain. She has emil and screws in her left femur. History of diabetes. Onset: Sudden Onset Date: 12/26/18 Location: Reports: Lower Extremity, Right Quality: Reports: Sharp Severity: Severe Improves with: Reports: None Worsens with: Reports: Movement Associated Symptoms: Reports: No Other Symptoms - Related Data Allergies Allergy/AdvReac Type Severity Reaction Status Date / Time Penicillins Allergy Other Verified 12/26/18 15:36 another antibiotic Allergy Cannot Uncoded 04/17/17 09:13 Remember Home Meds: Home Meds Albuterol [Proventil Neb Soln] 2.5 mg NEB Q4H PRN 02/03/15 [History] Ferrous Sulfate 325 mg PO DAILY 02/03/15 [History] Insulin Aspart [NovoLOG] 67 units SQ TID 02/03/15 [History] Levothyroxine [Synthroid] 100 mcg PO DAILY 02/03/15 [History] Lisinopril 20 mg PO DAILY 02/03/15 [History] Magnesium Oxide 400 mg PO BID 02/03/15 [History] Omeprazole 20 mg PO DAILY 02/03/15 [History] Tiotropium [Spiriva Handihaler] 18 mcg INH DAILY 02/03/15 [History] Albuterol/Ipratropium [DuoNeb 3.0-0.5 MG/3 ML] 3 ml NEB Q6H PRN 03/06/15 [ History] Fluticasone/Salmeterol [Advair 250-50] 1 puff INH BID 03/06/15 [History] Insulin Glarg,Human.Rec.Analog [Lantus Solostar] 30 unit SUBCUT BEDTIME [History] Sennosides/Docusate Sodium [Senna S Tablet] 2 tab PO ASDIRECTED 12/17/16 [ History] Fluticasone Furoate [Flonase Sensimist] 1 ml NS DAILY PRN 04/04/17 [History] Lactulose [Cephulac] 45 ml PO Q6H 06/22/17 [History] Social & Family History - Living Situation & Occupation Living situation: Reports: with Significant Other Review of Systems - Review of Systems Review Of Systems: See Below Constitutional: Reports: No Symptoms Eyes: Reports: No Symptoms Ears: Reports: No Symptoms Nose: Reports: No Symptoms Mouth/Throat: Reports: No Symptoms Respiratory: Reports: No Symptoms Cardiovascular: Reports: No Symptoms GI/Abdominal: Reports: No Symptoms Genitourinary: Reports: No Symptoms Musculoskeletal: Reports: Leg Pain (left hip, knee, and ankle pain), Joint Pain Skin: Reports: No Symptoms. Denies: Bruising, Wound Neurological: Reports: No Symptoms Psychiatric: Reports: No Symptoms ED EXAM, GENERAL - Physical Exam Exam: See Below Exam Limited By: No Limitations General Appearance: Alert, WD/WN, Moderate Distress Eye Exam: Bilateral Eye: Normal Inspection Ears: Normal External Exam, Normal Canal, Hearing Grossly Normal, Normal TMs Ear Exam: Bilateral Ear: TM normal Nose: Normal Inspection, Normal Mucosa, No Blood Throat/Mouth: Normal Inspection, Normal Lips, Normal Teeth, Normal Gums, Normal Oropharynx, Normal Voice, No Airway Compromise Head: Atraumatic, Normocephalic Neck: Other (indurated area to posterior neck, no redness or brusing,) Respiratory/Chest: No Respiratory Distress, Lungs Clear, Normal Breath Sounds, No Accessory Muscle Use, Chest Non-Tender Cardiovascular: Normal Peripheral Pulses, Regular Rate, Rhythm, No Edema, No Gallop, No JVD, No Murmur, No Rub Peripheral Pulses: 2+: Dorsalis Pedis (L), Dorsalis Pedis (R) GI/Abdominal: Normal Bowel Sounds, Soft, Non-Tender, No Organomegaly, No Distention, No Abnormal Bruit, No Mass (Female) Exam: Deferred Rectal (Female) Exam: Deferred Back Exam: Normal Inspection, Full Range of Motion, NT Extremities: Normal Capillary Refill, Joint Swelling (left ankle swelling), Leg Pain (no pain on palpation of ankle. Pain with passive range of motion. ), Limited Range of Motion (patient refuses active range of motion due to pain. Passive range of motion limited due to pain. Pain on papation of left anterior hip. No brusing or swelling noted. ) Neurological: Alert, Oriented Psychiatric: Normal Affect, Normal Mood Skin Exam: Warm, Dry, Intact, Normal Color, No Rash Lymphatic: No Adenopathy Course - Vital Signs Last Recorded V/S: Last Vital Signs Temp 36.9 C 12/26/18 15:25 Pulse 84 12/26/18 15:25 Resp 16 12/26/18 15:25 BP 138/55 L 12/26/18 16:30 Pulse Ox 95 12/26/18 15:25 - Orders/Labs/Meds Meds: Medications Discontinued Medications Generic Name Dose Route Start Last Admin Trade Name [place] PRN Reason Stop Dose Admin Ibuprofen 600 mg 12/26/18 15:56 12/26/18 16:19 Motrin PO 12/26/18 15:57 Not Given ONETIME ONE Orphenadrine Citrate 60 mg 12/26/18 17:23 12/26/18 17:30 Norflex IM 12/26/18 17:24 60 mg NOW STA Administration Tramadol HCl 50 mg 12/26/18 17:25 12/26/18 17:31 Ultram PO 12/26/18 17:26 Not Given ONETIME ONE Departure - Departure Disposition: Home, Self-Care 01 Clinical Impression: Fall Qualifiers: Encounter type: initial encounter Qualified Code(s): W19.XXXA - Unspecified fall, initial encounter Muscle strain of left hip Qualifiers: Encounter type: initial encounter Qualified Code(s): S76.012A - Strain of muscle, fascia and tendon of left hip, initial encounter - Discharge Information Instructions: Cryotherapy, [id number], Muscle Strain, [id number], Pain Medicine Instructions, [id number], Muscle Strain Referrals: PCP,None [Primary Care Provider] - Forms: ED Department Discharge Additional Instructions: Ibuprofen as needed for pain. RICE therapy to the sore areas. Assistance with ambulation and use your walker and wheelchair as much as possible. If pain not controlled with above. Tramadol 1 tablet three times a day as needed for pain. If not improving in a week consider physical therapy. Return to the ED if new or worsening symptoms Follow up with PCP in a week if not improving sooner if worse. 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, Musculoskeletal History: Reports: None, Arthritis, Back Pain, Chronic Neurological History: Reports: None Psychiatric History: Reports: None Endocrine/Metabolic History: Reports: Diabetes, Type II, Hypothyroidism, IDDM, Obesity/BMI 30+ Hematologic History: Reports: None Immunologic History: Reports: None Oncologic (Cancer) History: Reports: None Dermatologic History: Reports: None Other Dermatologic History: skin thick and discolored to extremities - Infectious Disease History Infectious Disease History: Reports: MRSA - Past Surgical History Head Surgeries/Procedures: Reports: None GI Surgical History: Reports: Cholecystectomy, Hernia Repair/Other Female Surgical History: Reports: Section Musculoskeletal Surgical History: Reports: Other (See Below) Other Musculoskeletal Surgeries/Procedures:: Emil in left leg. Femur bone with pins in knee Social & Family History - Family History Family Medical History: Noncontributory - Tobacco Use Smoking Status *Q: Never Smoker - Caffeine Use Caffeine Use: Reports: Coffee - Recreational Drug Use Recreational Drug Use: No - Living Situation & Occupation Living situation: Reports: , with Family Occupation: Unemployed ED EXAM, GENERAL - Physical Exam Extremities: Joint Swelling, Leg Pain, Other (Examination is agreed with above. She is constantly rubbing her posterior proximal left femur. There is no break in the skin bruising swelling ecchymosis bony deformities hematoma contusions or other findings. This is consistent throughout the left lower extremity. Palpation of the posterior midline spine does not elicit any tenderness bony deformities or step-offs.) Course - Radiology Interpretation Free Text/Narrative:: X-ray of the left ankle per radiology spurring along the anterior talus. Age- indeterminate avulsion fragment is not excluded. Palpation of this area on the patient does not elicit any tenderness. There is no bruising swelling ecchymosis bony deformity tenderness or any other signs of trauma. X-ray of the left knee per radiology. Orthopedic hardware is in appropriate position no evidence of complications. No acute osseous process. X-ray of the left hip shows orthopedic hardware is in appropriate position per radiology. No acute osseous process. - Re-Assessments/Exams Free Text/Narrative Re-Assessment/Exam: 12/27/18 10:14 I did see this patient in tandem with the nurse practitioner student. I agree with her evaluation. I was present during the care planning and disposition of this patient. There is no acute osseous abnormality. I am unconcern for a muscle tear due to the lack of physical findings. Muscle strain at this time. It is rather difficult to manage this patient for her pain as she refuses take Tylenol, she refuses take ibuprofen, she gets nauseated from tramadol, we will try tramadol at this time. [place] was not an option and she refuses take Tylenol. And I do not prescribe oxycodone primarily for no osseous abnormality or for muscle spasm. The patient's comfortable with this plan and her questions are answered. Departure - Departure Time of Disposition: 17:25 - Assessment/Plan Assessment:: Fall left hip muscle strain. Plan: Ibuprofen as needed for pain. RICE therapy to the sore areas. Assistance with ambulation and use your walker and wheelchair as much as possible. If pain not controlled with above. Tramadol 1 tablet three times a day as needed for pain. If not improving in a week consider physical therapy. Return to the ED if new or worsening symptoms Follow up with PCP in a week if not improving sooner if worse.
== END 2018-12-26 18:05 | disposition home or self-care (01) ==
LOC: DL.ED 15:21
DX: S76.012A Strain of muscle, fascia and tendon of left hip, initial encounter (principal); M25.562 Pain in left knee; I10 Essential (primary) hypertension; E11.9 Type 2 diabetes mellitus without complications; E66.9 Obesity, unspecified; M19.90 Unspecified osteoarthritis, unspecified site; Z87.440 Personal history of urinary (tract) infections; Z79.4 Long term (current) use of insulin; Z79.899 Other long term (current) drug therapy; Z88.0 Allergy status to penicillin; Z88.1 Allergy status to other antibiotic agents; W00.0XXA Fall on same level due to ice and snow, initial encounter; X50.1XXA Overexertion from prolonged static or awkward postures, initial encounter
CPT/HCPCS: 73502; 73562; 73610; 96372; 99283; J2360

== ENCOUNTER 2019-04-10 13:36 | Emergency (ER) | payer MEDICAID ==
[2019-04-10 13:47] VITALS: BP 151/53
--- NOTE | 2019-04-10 15:09 | EDM.PDOC ---
Scribed by Chiara Cramer 04/10/19 [id number] for Juana Perales NP ED HPI GENERAL MEDICAL PROBLEM - General Chief Complaint: Genitourinary Problem Stated Complaint: UTI? Time Seen by Provider: 04/10/19 14:00 Source of Information: Reports: Patient, RN, RN Notes Reviewed History Limitations: Reports: No Limitations - History of Present Illness INITIAL COMMENTS - FREE TEXT/NARRATIVE: Patient presents to ER with complaint of painful urination, and voiding small amounts frequently. She denies seeing blood in urine. She has had nausea. No fever, chills, vomiting or diarrhea. Onset: Gradual Duration: Getting Worse Quality: Reports: Ache Severity: Mild Improves with: Reports: None Worsens with: Reports: None Associated Symptoms: Reports: No Other Symptoms Pelvic Pain Score (Numeric/FACES): 3 - Related Data Allergies Allergy/AdvReac Type Severity Reaction Status Date / Time Penicillins Allergy Other Verified 04/10/19 13:47 another antibiotic Allergy Cannot Uncoded 04/10/19 13:47 Remember Home Meds: Home Meds Albuterol [Proventil Neb Soln] 2.5 mg NEB Q4H PRN 02/03/15 [History] Ferrous Sulfate 325 mg PO DAILY 02/03/15 [History] Insulin Aspart [NovoLOG] 67 units SQ TID 02/03/15 [History] Levothyroxine [Synthroid] 100 mcg PO DAILY 02/03/15 [History] Lisinopril 20 mg PO DAILY 02/03/15 [History] Magnesium Oxide 400 mg PO BID 02/03/15 [History] Omeprazole 20 mg PO DAILY 02/03/15 [History] Tiotropium [Spiriva Handihaler] 18 mcg INH DAILY 02/03/15 [History] Albuterol/Ipratropium [DuoNeb 3.0-0.5 MG/3 ML] 3 ml NEB Q6H PRN 03/06/15 [ History] Fluticasone/Salmeterol [Advair 250-50] 1 puff INH BID 03/06/15 [History] Insulin Glarg,Human.Rec.Analog [Lantus Solostar] 30 unit SUBCUT BEDTIME [History] Sennosides/Docusate Sodium [Senna S Tablet] 2 tab PO ASDIRECTED 12/17/16 [ History] Fluticasone Furoate [Flonase Sensimist] 1 ml NS DAILY PRN 04/04/17 [History] Lactulose [Cephulac] 45 ml PO Q6H 06/22/17 [History] Past Medical History HEENT History: Reports: Impaired Vision Cardiovascular History: Reports: Hypertension Respiratory History: Reports: Asthma, COPD, Other (See Below) Other Respiratory History: Empysema Gastrointestinal History: Reports: Cholelithiasis, Cirrhosis, GERD Genitourinary History: Reports: UTI, Recurrent 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, Musculoskeletal History: Reports: None, Arthritis, Back Pain, Chronic Neurological History: Reports: None Psychiatric History: Reports: None Endocrine/Metabolic History: Reports: Diabetes, Type II, Hypothyroidism, IDDM, Obesity/BMI 30+ Hematologic History: Reports: None Immunologic History: Reports: None Oncologic (Cancer) History: Reports: None Dermatologic History: Reports: None Other Dermatologic History: skin thick and discolored to extremities - Infectious Disease History Infectious Disease History: Reports: MRSA - Past Surgical History Head Surgeries/Procedures: Reports: None GI Surgical History: Reports: Cholecystectomy, Hernia Repair/Other Female Surgical History: Reports: Section Musculoskeletal Surgical History: Reports: Other (See Below) Other Musculoskeletal Surgeries/Procedures:: Emil in left leg. Femur bone with pins in knee Social & Family History - Family History Family Medical History: Noncontributory - Tobacco Use Smoking Status *Q: Never Smoker - Caffeine Use Caffeine Use: Reports: Coffee - Recreational Drug Use Recreational Drug Use: No - Living Situation & Occupation Living situation: Reports: , with Family Occupation: Unemployed ED ROS GENERAL - Review of Systems Review Of Systems: ROS reveals no pertinent complaints other than HPI. ED EXAM, RENAL/ - Physical Exam Exam: See Below Exam Limited By: No Limitations General Appearance: Obese Eye Exam: Bilateral Eye: Normal Inspection Ears: Normal External Exam, Normal Canal, Hearing Grossly Normal, Normal TMs Nose: Normal Inspection, Normal Mucosa, No Blood Throat/Mouth: Normal Inspection, Normal Lips, Normal Teeth, Normal Gums, Normal Oropharynx, Normal Voice, No Airway Compromise Head: Atraumatic, Normocephalic Neck: Normal Inspection, Supple, Non-Tender, Full Range of Motion Respiratory/Chest: Lungs Clear (but diminished) Cardiovascular: Normal Peripheral Pulses, Regular Rate, Rhythm, No Edema, No Gallop, No JVD, No Murmur, No Rub GI/Abdominal: Normal Bowel Sounds, Soft, Non-Tender, No Organomegaly, No Distention, No Abnormal Bruit, No Mass (Female) Exam: Deferred Rectal (Female) Exam: Deferred Back Exam: Normal Inspection, Full Range of Motion, NT Extremities: Other (decreased range of motion) Neurological: Alert, Oriented, CN II-XII Intact, Normal Cognition, Normal Gait, Normal Reflexes, No Motor/Sensory Deficits Psychiatric: Normal Affect, Normal Mood Skin Exam: Warm, Dry, Intact, Normal Color, No Rash Lymphatic: No Adenopathy Course - Vital Signs Last Recorded V/S: Last Vital Signs Temp 97.4 F 04/10/19 13:42 Pulse 67 04/10/19 13:42 Resp 18 04/10/19 13:42 BP 151/53 H 04/10/19 13:42 Pulse Ox 96 04/10/19 13:42 - Orders/Labs/Meds Labs: Laboratory Tests 04/10/19 Range/Units 13:40 Urine Color Yellow (YELLOW) Urine Appearance Slightly cloudy (CLEAR) Urine pH 6.0 (5.0-9.0) Ur Specific [place] 1.020 (1.005-1.030) Urine Protein 30 H (NEGATIVE) Urine Glucose (UA) 500 H (NEGATIVE) Urine Ketones Negative (NEGATIVE) Urine Occult Blood Large H (NEGATIVE) Urine Nitrite Negative (NEGATIVE) Urine Bilirubin Negative (NEGATIVE) Urine Urobilinogen 0.2 (0.2-1.0) mg/dL Ur Leukocyte Esterase Negative (NEGATIVE) Urine RBC >100 H /HPF Urine WBC 0-5 (0-5/HPF) /HPF Ur Epithelial Cells Moderate H (NOT SEEN) /HPF Urine Bacteria Moderate H (0-FEW/HPF) /HPF Hyaline Casts Occasional H (NOT SEEN) /LPF Fine Granular Casts Occasional H (NOT SEEN) /LPF Urine Mucus Occasional (NOT SEEN) /LPF Departure - Departure Time of Disposition: 14:24 Disposition: Home, Self-Care 01 Condition: Fair Clinical Impression: Bacterial vaginosis, Vaginal yeast infection - Discharge Information *PRESCRIPTION DRUG MONITORING PROGRAM REVIEWED*: No *COPY OF PRESCRIPTION DRUG MONITORING REPORT IN PATIENT RAY: No Instructions: Bacterial Vaginosis, [id number], Vaginal Yeast Infection, Adult Forms: ED Department Discharge Additional Instructions: RX: Diflucan and Metronidazole Wash area twice daily with female hygiene wash, or warm soapy water Follow up with your primary care facility if no improvement I have read and agree with the documentation that has been completed regarding this visit. By signing this record, I attest that the documentation was completed in my physical presence and is an accurate record of the encounter.
== END 2019-04-10 14:34 | disposition home or self-care (01) ==
LOC: DL.ED 13:36
DX: N76.0 Acute vaginitis (principal); B96.89 Other specified bacterial agents as the cause of diseases classified elsewhere; B37.3 Candidiasis of vulva and vagina; I10 Essential (primary) hypertension; J44.9 Chronic obstructive pulmonary disease, unspecified; E11.9 Type 2 diabetes mellitus without complications; E03.9 Hypothyroidism, unspecified; Z88.0 Allergy status to penicillin; Z88.1 Allergy status to other antibiotic agents; Z79.899 Other long term (current) drug therapy; Z79.4 Long term (current) use of insulin
CPT/HCPCS: 81001; 99283

== ENCOUNTER 2019-08-21 11:58 | Emergency (ER) | payer MEDICAID ==
[2019-08-21 12:14] VITALS: BP 111/66; PULSE 70
--- NOTE | 2019-08-21 12:21 | EDM.PDOC ---
ED HPI GENERAL MEDICAL PROBLEM - General Chief Complaint: Genitourinary Problem Stated Complaint: ABD PAIN Time Seen by Provider: 08/21/19 12:21 Source of Information: Reports: Patient, RN, RN Notes Reviewed History Limitations: Reports: No Limitations - History of Present Illness INITIAL COMMENTS - FREE TEXT/NARRATIVE: patient presents to ER with complaint of intermittent lower abdominal pain for the past 3 days. She states this happens more so at night. Admits to diarrhea at times. Denies urgency, frequency, burning with urination, fever or chills, nausea or vomiting. Patient denies back pain. Onset: Gradual Lower Back Pain Score (Numeric/FACES): 9 - Related Data Allergies Allergy/AdvReac Type Severity Reaction Status Date / Time aspirin Allergy Cannot Verified 08/21/19 12:09 Remember atorvastatin Allergy Cannot Verified 08/21/19 12:09 Remember cephalexin Allergy Fatigue Verified 08/21/19 12:09 [From Panixine DisperDose] ciprofloxacin Allergy Diarrhea Verified 08/21/19 12:09 docusate [From Senna-S] Allergy Abdominal Verified 08/21/19 12:09 Pain levofloxacin Allergy Dizziness Verified 08/21/19 12:09 Penicillins Allergy Other Verified 08/21/19 12:09 senna [From Senna-S] Allergy Abdominal Verified 08/21/19 12:09 Pain sulfamethoxazole Allergy Shortness Verified 08/21/19 12:09 [From Bactrim] of Breath trimethoprim [From Bactrim] Allergy Shortness Verified 08/21/19 12:09 of Breath another antibiotic Allergy Cannot Uncoded 05/02/19 14:17 Remember Home Meds: Home Meds Albuterol [Proventil Neb Soln] 2.5 mg NEB Q4H PRN 02/03/15 [History] Insulin Aspart [NovoLOG] 67 units SQ TID 02/03/15 [History] Levothyroxine [Synthroid] 100 mcg PO DAILY 02/03/15 [History] Lisinopril 20 mg PO DAILY 02/03/15 [History] Magnesium Oxide 400 mg PO BID 02/03/15 [History] Omeprazole 20 mg PO BID 02/03/15 [History] Tiotropium [Spiriva Handihaler] 18 mcg INH DAILY 02/03/15 [History] Albuterol/Ipratropium [DuoNeb 3.0-0.5 MG/3 ML] 3 ml NEB Q6H PRN 03/06/15 [ History] Insulin Glarg,Human.Rec.Analog [Lantus Solostar] 30 unit SUBCUT BEDTIME [History] Fluticasone Furoate [Flonase Sensimist] 1 ml NS DAILY PRN 04/04/17 [History] Lactulose [Cephulac] 45 ml PO Q6H 06/22/17 [History] Past Medical History HEENT History: Reports: Impaired Vision Cardiovascular History: Reports: Hypertension Respiratory History: Reports: Asthma, COPD, Other (See Below) Other Respiratory History: Empysema Gastrointestinal History: Reports: Cholelithiasis, Cirrhosis, GERD Genitourinary History: Reports: UTI, Recurrent RIGHT OF WAY MANAGER History: Reports: None, Musculoskeletal History: Reports: None, Arthritis, Back Pain, Chronic Neurological History: Reports: None Psychiatric History: Reports: None Endocrine/Metabolic History: Reports: Diabetes, Type II, Hypothyroidism, IDDM, Obesity/BMI 30+ Hematologic History: Reports: None Immunologic History: Reports: None Oncologic (Cancer) History: Reports: None Dermatologic History: Reports: None Other Dermatologic History: skin thick and discolored to extremities - Infectious Disease History Infectious Disease History: Reports: MRSA - Past Surgical History Head Surgeries/Procedures: Reports: None GI Surgical History: Reports: Cholecystectomy, Hernia Repair/Other Female Surgical History: Reports: Section Musculoskeletal Surgical History: Reports: Other (See Below) Other Musculoskeletal Surgeries/Procedures:: Emil in left leg. Femur bone with pins in knee Social & Family History - Family History Family Medical History: Noncontributory - Tobacco Use Smoking Status *Q: Never Smoker Second Hand Smoke Exposure: No - Caffeine Use Caffeine Use: Reports: Coffee - Recreational Drug Use Recreational Drug Use: No - Living Situation & Occupation Living situation: Reports: , with Family Occupation: Unemployed ED ROS GENERAL - Review of Systems Review Of Systems: ROS reveals no pertinent complaints other than HPI. ED EXAM, RENAL/ - Physical Exam Exam: See Below Exam Limited By: No Limitations General Appearance: Alert, WD/WN, No Apparent Distress, Obese Eye Exam: Bilateral Eye: EOMI, Normal Fundi Ears: Normal External Exam, Hearing Grossly Normal Nose: Normal Inspection Throat/Mouth: Normal Inspection, Normal Voice, No Airway Compromise Head: Atraumatic, Normocephalic Neck: Normal Inspection, Supple, Non-Tender, Full Range of Motion Respiratory/Chest: No Respiratory Distress, No Accessory Muscle Use, Decreased Breath Sounds Cardiovascular: Normal Peripheral Pulses, Regular Rate, Rhythm, No Edema, No Gallop, No JVD, No Murmur, No Rub GI/Abdominal: Normal Bowel Sounds, Soft, Non-Tender, Other (difficult to assess due to large abdomen and pannus) (Female) Exam: Deferred Rectal (Female) Exam: Deferred Back Exam: Normal Inspection, Decreased Range of Motion. No: CVA Tenderness (L) , CVA Tenderness (R) Extremities: Normal Inspection, Non-Tender, Limited Range of Motion Neurological: Alert, Oriented, CN II-XII Intact, Normal Cognition Psychiatric: Normal Mood, Flat Affect Skin Exam: Warm, Dry, Intact, Normal Color, No Rash Lymphatic: No Adenopathy Course - Vital Signs Last Recorded V/S: Last Vital Signs Temp 98.3 F 08/21/19 12:12 Pulse 70 08/21/19 12:12 Resp 14 08/21/19 12:12 BP 111/66 08/21/19 12:12 Pulse Ox 97 08/21/19 12:12 - Orders/Labs/Meds Labs: Laboratory Tests 08/21/19 08/21/19 08/21/19 Range/Units 12:15 12:49 12:49 WBC 4.0 L (5.0-10.0) 10^3/uL RBC 4.17 L (4.2-5.4) 10^6/uL Hgb 14.7 D (12.0-16.0) g/dL Hct 40.7 (37.0-47.0) % MCV 97.6 D (80-100) fL MCH 35.3 H (27.0-34.0) pg MCHC 36.1 H (33.0-35.0) g/dL Plt Count 67 L (150-450) 10^3/uL Neut % (Auto) 57.9 (42.2-75.2) % Lymph % (Auto) 26.5 (20.5-50.1) % Darke % (Auto) 8.7 H (2-8) % Eos % (Auto) 6.2 H (1.0-3.0) % Baso % (Auto) 0.7 (0.0-1.0) % Sodium 133 L (135-145) mmol/L Potassium 4.3 (3.6-5.0) mmol/L Chloride 103 (101-111) mmol/L Carbon Dioxide 25.0 (21.0-31.0) mmol/L Anion Gap 9.3 BUN 11 (7-18) mg/dL Creatinine 0.8 (0.6-1.3) mg/dL Est Cr Clr Drug Dosing 67.80 mL/min Estimated GFR (MDRD) > 60 BUN/Creatinine Ratio 13.75 Glucose 285 H (74-105) mg/dL Calcium 8.3 L (8.4-10.2) mg/dl Total Bilirubin 1.9 H (0.2-1.0) mg/dL AST 50 H (10-42) IU/L ALT 29 (10-60) IU/L Alkaline Phosphatase 236 H (42-121) IU/L Total Protein 7.3 (6.7-8.2) g/dl Albumin 2.4 L (3.2-5.5) g/dl Globulin 4.9 Albumin/Globulin Ratio 0.49 Urine Color Yellow (YELLOW) Urine Appearance Cloudy (CLEAR) Urine pH 5.5 (5.0-9.0) Ur Specific Antelope 1.025 (1.005-1.030) Urine Protein 30 H (NEGATIVE) Urine Glucose (UA) 500 H (NEGATIVE) Urine Ketones Trace H (NEGATIVE) Urine Occult Blood Large H (NEGATIVE) Urine Nitrite Negative (NEGATIVE) Urine Bilirubin Negative (NEGATIVE) Urine Urobilinogen 1.0 (0.2-1.0) mg/dL Ur Leukocyte Esterase Negative (NEGATIVE) Urine RBC 20-30 H /HPF Urine WBC 0-5 (0-5/HPF) /HPF Ur Epithelial Cells Few (NOT SEEN) /HPF Amorphous Sediment Few (NOT SEEN) /HPF Urine Bacteria Rare (0-FEW/HPF) /HPF Urine Mucus Few H (NOT SEEN) /LPF Urine Yeast Few H (NOT SEEN) /HPF Meds: Medications Discontinued Medications Generic Name Dose Route Start Last Admin Trade Name Freq PRN Reason Stop Dose Admin Sodium Chloride 10 ml 08/21/19 12:41 08/21/19 12:50 Saline Flush FLUSH 10 ml ASDIRECTED PRN Administration Keep Vein Open - Radiology Interpretation Free Text/Narrative:: Abdomen/Pelvis CT wo contrast: FINDINGS: Lungs: The visualized portions of the lung bases are normal. Liver: The liver has a finely nodular contour, consistent with cirrhosis. Gallbladder and bile ducts: The patient is post cholecystectomy. Pancreas: The pancreas is normal. Spleen: The spleen is normal. Adrenals: The adrenal glands are normal. Kidneys and ureters: The kidneys are morphologically normal. There are no signs of calculi or hydronephrosis. Stomach and bowel: The GI tract has normal course, caliber and morphology. Appendix: A normal appendix is identified. Intraperitoneal space: There is no evidence of free intraperitoneal or pelvic fluid. Vasculature: Unremarkable. No abdominal aortic aneurysm. Lymph nodes: There is no evidence of lymphadenopathy. Bladder: The bladder is decompressed. Reproductive: The uterus is normal. Bones/joints: The patient is post hardware fixation of the proximal left femur. The visualized hardware appears unremarkable.The L5-S1 disc space is degenerated and narrowed. The pelvis and sacrum are morphologically normal and anatomically aligned. Soft tissues: Mesenteric fat and large intestine herniate through a left lower abdominal wall hernia. The hernia lies just superior to a previous repair site with a synthetic mesh. Other findings: The remaining vertebra have normal morphology and alignment. IMPRESSION: 1. No sign of nephrolithiasis/obstructive uropathy. 2. Moderately large left lower abdominal wall ventral hernia containing a short segment of nonobstructed large intestine. The hernia lies at the superior margin of the previously placed synthetic mesh. 3. Suspect mild cirrhosis. Thank you for allowing us to participate in the care of your patient. Dictated and Authenticated by: Neo Carbajal MD 08/21/2019 2:09 PM Central Time ([place] & [place]) See rad report Departure - Departure Time of Disposition: 15:50 Disposition: Home, Self-Care 01 Condition: Fair Clinical Impression: Hernia - Discharge Information *PRESCRIPTION DRUG MONITORING PROGRAM REVIEWED*: No *COPY OF PRESCRIPTION DRUG MONITORING REPORT IN PATIENT RAY: No Instructions: Hernia, Adult, [id number] Referrals: PCP,None [Primary Care Provider] - Forms: ED Department Discharge Additional Instructions: Follow up with your primary care facility for possible surgical referral No heavy lifting
[2019-08-21] MEDS ORDERED: Sodium Chloride 0.9% 10 ML Syringe FLUSH PRN (12:41)
[2019-08-21 13:15] LABS: ANION GAP 9.3; CHLORIDE,CL 103 mmol/L (101-111); SODIUM,NA 133 mmol/L (135-145)
== END 2019-08-21 16:05 | disposition home or self-care (01) ==
LOC: DL.ED 11:58
DX: K43.9 Ventral hernia without obstruction or gangrene (principal); J44.9 Chronic obstructive pulmonary disease, unspecified; E03.9 Hypothyroidism, unspecified; E66.9 Obesity, unspecified; I10 Essential (primary) hypertension; K21.9 Gastro-esophageal reflux disease without esophagitis; Z88.6 Allergy status to analgesic agent; Z88.2 Allergy status to sulfonamides; Z88.0 Allergy status to penicillin; Z88.1 Allergy status to other antibiotic agents; Z88.8 Allergy status to other drugs, medicaments and biological substances; Z79.899 Other long term (current) drug therapy; Z79.4 Long term (current) use of insulin; Z68.43 Body mass index [BMI] 50.0-59.9, adult
CPT/HCPCS: 36415; 74176; 80053; 81001; 85025; 99284-25

== ENCOUNTER 2020-03-11 09:52 | Emergency (ER) | payer MEDICAID ==
[2020-03-11 10:01] VITALS: BP 141/47; PULSE 83
[2020-03-11] MEDS ORDERED: Sodium Chloride 0.9% 10 ML Syringe FLUSH PRN (10:04)
--- NOTE | 2020-03-11 10:18 | EDM.PDOC ---
ED HPI GENERAL MEDICAL PROBLEM - General Chief Complaint: General Stated Complaint: ABD PAIN/TEMP 100.2 Time Seen by Provider: 03/11/20 10:05 Source of Information: Reports: Patient History Limitations: Reports: No Limitations - History of Present Illness INITIAL COMMENTS - FREE TEXT/NARRATIVE: This 55 yo female patient reports to the ED due to lower abdominal pain that started this morning, but is gone now and a headache. The patient reports her lower abdomen started aching this morning. The patient reports she has a history of an abdominal hernia that needs surgery in the future. The patient reports she did see a surgeon about 1 month ago and as advised that she should have surgery, but they did not want to do the surgery at that time due to the complexity of the surgery. The patient reports she would like to have surgery done at [facility] in [place]. The patient reports her headache also started this morning. The patient has not taken any medications for temporary symptom relief. The patient also reports she has been having the chills this morning and "just does not feel well." Onset: Today Duration: Constant Location: Reports: Head (current), Abdomen (earlier this morning, but gone at presentation to the ED.) Severity: Mild Improves with: Reports: None Worsens with: Reports: None Context: Reports: Other Associated Symptoms: Reports: Nausea/Vomiting (Nausea, but no vomiting) Treatments WASTE RECYCLER: Denies: Acetaminophen, Aspirin, Home Treatments, NSAIDS Headache Pain Score (Numeric/FACES): 3 - Related Data Allergies Allergy/AdvReac Type Severity Reaction Status Date / Time aspirin Allergy Cannot Verified 03/11/20 10:01 Remember atorvastatin Allergy Cannot Verified 03/11/20 10:01 Remember cephalexin Allergy Fatigue Verified 03/11/20 10:01 [From Panixine DisperDose] ciprofloxacin Allergy Diarrhea Verified 03/11/20 10:01 docusate [From Senna-S] Allergy Abdominal Verified 03/11/20 10:01 Pain levofloxacin Allergy Dizziness Verified 03/11/20 10:01 Penicillins Allergy Other Verified 03/11/20 10:01 senna [From Senna-S] Allergy Abdominal Verified 03/11/20 10:01 Pain sulfamethoxazole Allergy Shortness Verified 03/11/20 10:01 [From Bactrim] of Breath trimethoprim [From Bactrim] Allergy Shortness Verified 03/11/20 10:01 of Breath another antibiotic Allergy Cannot Uncoded 05/02/19 14:17 Remember Home Meds: Home Meds Albuterol [Proventil Neb Soln] 2.5 mg NEB Q4H PRN 02/03/15 [History] Insulin Aspart [NovoLOG] 67 units SQ TID 02/03/15 [History] Levothyroxine [Synthroid] 100 mcg PO DAILY 02/03/15 [History] Lisinopril 20 mg PO DAILY 02/03/15 [History] Magnesium Oxide 400 mg PO BID 02/03/15 [History] Omeprazole 20 mg PO BID 02/03/15 [History] Tiotropium [Spiriva Handihaler] 18 mcg INH DAILY 02/03/15 [History] Albuterol/Ipratropium [DuoNeb 3.0-0.5 MG/3 ML] 3 ml NEB Q6H PRN 03/06/15 [ History] Insulin Glarg,Human.Rec.Analog [Lantus Solostar] 30 unit SUBCUT BEDTIME [History] Fluticasone Furoate [Flonase Sensimist] 1 ml NS DAILY PRN 04/04/17 [History] Lactulose [Cephulac] 45 ml PO Q6H 06/22/17 [History] Past Medical History HEENT History: Reports: Impaired Vision Cardiovascular History: Reports: Hypertension Respiratory History: Reports: Asthma, COPD, Other (See Below) Other Respiratory History: Empysema Gastrointestinal History: Reports: Cholelithiasis, Cirrhosis, GERD Genitourinary History: Reports: UTI, Recurrent NURSE FIRST ASSIST History: Reports: None, Musculoskeletal History: Reports: None, Arthritis, Back Pain, Chronic Neurological History: Reports: None Psychiatric History: Reports: None Endocrine/Metabolic History: Reports: Diabetes, Type II, Hypothyroidism, IDDM, Obesity/BMI 30+ Hematologic History: Reports: None Immunologic History: Reports: None Oncologic (Cancer) History: Reports: None Dermatologic History: Reports: None Other Dermatologic History: skin thick and discolored to extremities - Infectious Disease History Infectious Disease History: Reports: MRSA - Past Surgical History Head Surgeries/Procedures: Reports: None GI Surgical History: Reports: Cholecystectomy, Hernia Repair/Other Female Surgical History: Reports: Section Musculoskeletal Surgical History: Reports: Other (See Below) Other Musculoskeletal Surgeries/Procedures:: Emil in left leg. Femur bone with pins in knee Social & Family History - Family History Family Medical History: Noncontributory - Tobacco Use Smoking Status *Q: Never Smoker Second Hand Smoke Exposure: No - Caffeine Use Caffeine Use: Reports: Coffee - Recreational Drug Use Recreational Drug Use: No - Living Situation & Occupation Living situation: Reports: , with Family Occupation: Unemployed ED ROS GENERAL - Review of Systems Review Of Systems: Comprehensive ROS is negative, except as noted in HPI. ED EXAM, GENERAL - Physical Exam Exam: See Below Exam Limited By: No Limitations General Appearance: Alert, WD/WN, Mild Distress, Obese (Morbid obesity) Eye Exam: Bilateral Eye: EOMI, Normal Inspection, PERRL Ears: Normal External Exam, Normal Canal, Hearing Grossly Normal, Normal TMs Nose: Normal Inspection, Normal Mucosa, No Blood Throat/Mouth: Normal Inspection, Normal Lips, Normal Teeth, Normal Gums, Normal Oropharynx, Normal Voice, No Airway Compromise Head: Atraumatic, Normocephalic Neck: Normal Inspection, Supple, Non-Tender, Full Range of Motion Respiratory/Chest: No Respiratory Distress, Lungs Clear, Normal Breath Sounds, No Accessory Muscle Use, Chest Non-Tender Cardiovascular: Normal Peripheral Pulses, Regular Rate, Rhythm, No Edema, No Gallop, No JVD, No Murmur, No Rub GI/Abdominal: Normal Bowel Sounds, Soft, Non-Tender, No Organomegaly, No Abnormal Bruit, No Mass, Pelvis Stable, Other (Morbid obesity) (Female) Exam: Deferred Rectal (Female) Exam: Deferred Back Exam: Normal Inspection, Full Range of Motion, NT Extremities: Normal Inspection, Normal Range of Motion, Non-Tender, Normal Capillary Refill, No Pedal Edema Neurological: Alert, Oriented, CN II-XII Intact, Normal Cognition, Normal Gait, Normal Reflexes, No Motor/Sensory Deficits Psychiatric: Normal Affect, Normal Mood Skin Exam: Warm, Dry, Intact, Normal Color, No Rash Lymphatic: No Adenopathy Course - Vital Signs Last Recorded V/S: Last Vital Signs Temp 36.6 C 03/11/20 09:56 Pulse 83 03/11/20 09:56 Resp 18 03/11/20 09:56 BP 141/47 H 03/11/20 09:56 Pulse Ox 96 03/11/20 09:56 - Orders/Labs/Meds Orders: Active Orders 24 hr Category Date Time Status Blood Glucose Check, Bedside [RC] ONETIME Care 03/11/20 10:25 Active CULTURE BLOOD [BC] Stat Lab 03/11/20 10:23 Received UA W/MICROSCOPIC [URIN] Urgent Lab 03/11/20 13:31 Results Sodium Chloride 0.9% [Saline Flush] Med 03/11/20 10:04 Active 10 ml FLUSH ASDIRECTED PRN Saline Lock Insert [OM.PC] Routine Oth 03/11/20 10:04 Ordered Medication Orders Sodium Chloride (Saline Flush) 10 ml FLUSH ASDIRECTED PRN PRN Reason: Keep Vein Open Last Admin: 03/11/20 10:28 Dose: 10 ml Labs: Laboratory Tests 03/11/20 03/11/20 03/11/20 Range/Units 10:23 10:23 10:23 WBC 3.7 L (5.0-10.0) 10^3/uL RBC 3.71 L (4.2-5.4) 10^6/uL Hgb 12.8 D (12.0-16.0) g/dL Hct 38.0 (37.0-47.0) % MCV 102.4 H D (80-100) fL MCH 34.5 H (27.0-34.0) pg MCHC 33.7 (33.0-35.0) g/dL Plt Count 61 L (150-450) 10^3/uL Neut % (Auto) 63.7 (42.2-75.2) % Lymph % (Auto) 21.1 (20.5-50.1) % [place] % (Auto) 10.4 H (2-8) % Eos % (Auto) 4.3 H (1.0-3.0) % Baso % (Auto) 0.5 (0.0-1.0) % Sodium 139 (136-145) mmol/L Potassium 5.0 (3.5-5.1) mmol/L Chloride 107 (98-107) mmol/L Carbon Dioxide 25 (21-32) mmol/L Anion Gap 12.0 (7-13) mEq/L BUN 17 (7-18) mg/dL Creatinine 1.04 H (0.55-1.02) mg/dL Est Cr Clr Drug Dosing 51.54 mL/min Estimated GFR (MDRD) 55 BUN/Creatinine Ratio 16.3 (No establ ref range) Glucose 167 H (74-99) mg/dL POC Glucose (70-105) mg/dl Lactic Acid 1.7 (0.4-2.0) mmol/L Calcium 8.0 L (8.5-10.1) mg/dL Total Bilirubin 1.6 H (0.2-1.0) mg/dL AST 72 H (15-37) U/L ALT 42 (14-59) U/L Alkaline Phosphatase 266 H (46-116) U/L Total Protein 7.1 (6.4-8.2) g/dL Albumin 2.3 L (3.4-5.0) g/dL Globulin 4.8 Albumin/Globulin Ratio 0.48 Urine Color (YELLOW) Urine Appearance (CLEAR) Urine pH (5.0-9.0) Ur Specific [place] (1.005-1.030) Urine Protein (NEGATIVE) Urine Glucose (UA) (NEGATIVE) Urine Ketones (NEGATIVE) Urine Occult Blood (NEGATIVE) Urine Nitrite (NEGATIVE) Urine Bilirubin (NEGATIVE) Urine Urobilinogen (0.2-1.0) mg/dL Ur Leukocyte Esterase (NEGATIVE) Salicylates (2.8-20(Therapeutic)) mg/dL Urine Opiates Screen (NEGATIVE) Ur Oxycodone Screen (NEGATIVE) Urine Methadone Screen (NEGATIVE) Acetaminophen 0 L (10-30 (Therapeutic)) ug/mL Ur Barbiturates Screen (NEGATIVE) U Tricyclic Antidepress (NEGATIVE) Ur Phencyclidine Scrn (NEGATIVE) Ur Amphetamine Screen (NEGATIVE) U Methamphetamines Scrn (NEGATIVE) Urine MDMA Screen (NEGATIVE) U Benzodiazepines Scrn (NEGATIVE) Urine Cocaine Screen (NEGATIVE) U Marijuana (THC) Screen (NEGATIVE) Ethyl Alcohol < 3 (0) mg/dL 03/11/20 03/11/20 03/11/20 Range/Units 10:23 10:27 13:31 WBC (5.0-10.0) 10^3/uL RBC (4.2-5.4) 10^6/uL Hgb (12.0-16.0) g/dL Hct (37.0-47.0) % MCV (80-100) fL MCH (27.0-34.0) pg MCHC (33.0-35.0) g/dL Plt Count (150-450) 10^3/uL Neut % (Auto) (42.2-75.2) % Lymph % (Auto) (20.5-50.1) % [place] % (Auto) (2-8) % Eos % (Auto) (1.0-3.0) % Baso % (Auto) (0.0-1.0) % Sodium (136-145) mmol/L Potassium (3.5-5.1) mmol/L Chloride (98-107) mmol/L Carbon Dioxide (21-32) mmol/L Anion Gap (7-13) mEq/L BUN (7-18) mg/dL Creatinine (0.55-1.02) mg/dL Est Cr Clr Drug Dosing mL/min Estimated GFR (MDRD) BUN/Creatinine Ratio (No establ ref range) Glucose (74-99) mg/dL POC Glucose 156 H (70-105) mg/dl Lactic Acid (0.4-2.0) mmol/L Calcium (8.5-10.1) mg/dL Total Bilirubin (0.2-1.0) mg/dL AST (15-37) U/L ALT (14-59) U/L Alkaline Phosphatase (46-116) U/L Total Protein (6.4-8.2) g/dL Albumin (3.4-5.0) g/dL Globulin Albumin/Globulin Ratio Urine Color Yellow (YELLOW) Urine Appearance Clear (CLEAR) Urine pH 6.0 (5.0-9.0) Ur Specific [place] 1.020 (1.005-1.030) Urine Protein Negative (NEGATIVE) Urine Glucose (UA) Negative (NEGATIVE) Urine Ketones Negative (NEGATIVE) Urine Occult Blood Small H (NEGATIVE) Urine Nitrite Negative (NEGATIVE) Urine Bilirubin Negative (NEGATIVE) Urine Urobilinogen 0.2 (0.2-1.0) mg/dL Ur Leukocyte Esterase Negative (NEGATIVE) Salicylates < 2.8 L (2.8-20(Therapeutic)) mg/dL Urine Opiates Screen (NEGATIVE) Ur Oxycodone Screen (NEGATIVE) Urine Methadone Screen (NEGATIVE) Acetaminophen (10-30 (Therapeutic)) ug/mL Ur Barbiturates Screen (NEGATIVE) U Tricyclic Antidepress (NEGATIVE) Ur Phencyclidine Scrn (NEGATIVE) Ur Amphetamine Screen (NEGATIVE) U Methamphetamines Scrn (NEGATIVE) Urine MDMA Screen (NEGATIVE) U Benzodiazepines Scrn (NEGATIVE) Urine Cocaine Screen (NEGATIVE) U Marijuana (THC) Screen (NEGATIVE) Ethyl Alcohol (0) mg/dL 03/11/20 Range/Units 13:31 WBC (5.0-10.0) 10^3/uL RBC (4.2-5.4) 10^6/uL Hgb (12.0-16.0) g/dL Hct (37.0-47.0) % MCV (80-100) fL MCH (27.0-34.0) pg MCHC (33.0-35.0) g/dL Plt Count (150-450) 10^3/uL Neut % (Auto) (42.2-75.2) % Lymph % (Auto) (20.5-50.1) % [place] % (Auto) (2-8) % Eos % (Auto) (1.0-3.0) % Baso % (Auto) (0.0-1.0) % Sodium (136-145) mmol/L Potassium (3.5-5.1) mmol/L Chloride (98-107) mmol/L Carbon Dioxide (21-32) mmol/L Anion Gap (7-13) mEq/L BUN (7-18) mg/dL Creatinine (0.55-1.02) mg/dL Est Cr Clr Drug Dosing mL/min Estimated GFR (MDRD) BUN/Creatinine Ratio (No establ ref range) Glucose (74-99) mg/dL POC Glucose (70-105) mg/dl Lactic Acid (0.4-2.0) mmol/L Calcium (8.5-10.1) mg/dL Total Bilirubin (0.2-1.0) mg/dL AST (15-37) U/L ALT (14-59) U/L Alkaline Phosphatase (46-116) U/L Total Protein (6.4-8.2) g/dL Albumin (3.4-5.0) g/dL Globulin Albumin/Globulin Ratio Urine Color (YELLOW) Urine Appearance (CLEAR) Urine pH (5.0-9.0) Ur Specific [place] (1.005-1.030) Urine Protein (NEGATIVE) Urine Glucose (UA) (NEGATIVE) Urine Ketones (NEGATIVE) Urine Occult Blood (NEGATIVE) Urine Nitrite (NEGATIVE) Urine Bilirubin (NEGATIVE) Urine Urobilinogen (0.2-1.0) mg/dL Ur Leukocyte Esterase (NEGATIVE) Salicylates (2.8-20(Therapeutic)) mg/dL Urine Opiates Screen Negative (NEGATIVE) Ur Oxycodone Screen Negative (NEGATIVE) Urine Methadone Screen Negative (NEGATIVE) Acetaminophen (10-30 (Therapeutic)) ug/mL Ur Barbiturates Screen Negative (NEGATIVE) U Tricyclic Antidepress Negative (NEGATIVE) Ur Phencyclidine Scrn Negative (NEGATIVE) Ur Amphetamine Screen Negative (NEGATIVE) U Methamphetamines Scrn Negative (NEGATIVE) Urine MDMA Screen Negative (NEGATIVE) U Benzodiazepines Scrn Negative (NEGATIVE) Urine Cocaine Screen Negative (NEGATIVE) U Marijuana (THC) Screen Negative (NEGATIVE) Ethyl Alcohol (0) mg/dL Meds: Medications Generic Name Dose Route Start Last Admin Trade Name Freq PRN Reason Stop Dose Admin Sodium Chloride 10 ml 03/11/20 10:04 03/11/20 10:28 Saline Flush FLUSH 10 ml ASDIRECTED PRN Administration Keep Vein Open Discontinued Medications Generic Name Dose Route Start Last Admin Trade Name Freq PRN Reason Stop Dose Admin Sodium Chloride 1,000 mls @ 999 mls/hr 03/11/20 11:08 03/11/20 11:16 Normal Saline IV 03/11/20 12:08 999 mls/hr .BOLUS ONE Administration Departure - Departure Time of Disposition: 13:56 Disposition: Home, Self-Care 01 Condition: Fair Clinical Impression: Dehydration, mild Headache Qualifiers: Headache type: unspecified Headache chronicity pattern: acute headache Intractability: not intractable Qualified Code(s): R51 - Headache - Discharge Information *PRESCRIPTION DRUG MONITORING PROGRAM REVIEWED*: Not Applicable *COPY OF PRESCRIPTION DRUG MONITORING REPORT IN PATIENT RAY: Not Applicable Instructions: General Headache Without Cause, [id number], Dehydration, Adult Forms: ED Department Discharge Care Plan Goals: The patient was advised of the examination and lab results during the visit. The patient was encouraged to stick to a low calorie bland diet. The patient should follow-up with her primary care facility for continued evaluation and further management. If the patient has any additional symptoms or concerns, the patient should either return to the emergency department or visit her primary care facility. Sepsis Event Note - Evaluation Sepsis Screening Result: No Definite Risk - Focused Exam Vital Signs: Vital Signs Temp Pulse Resp BP Pulse Ox 03/11/20 09:56 36.6 C 83 18 141/47 H 96 Date Exam was Performed: 03/11/20 Time Exam was Performed: 13:56 - My Orders Last 24 Hours: My Active Orders 03/11/20 10:04 Sodium Chloride 0.9% [Saline Flush] 10 ml FLUSH ASDIRECTED PRN Saline Lock Insert [OM.PC] Routine 03/11/20 10:23 CULTURE BLOOD [BC] Stat 03/11/20 10:25 Blood Glucose Check, Bedside [RC] ONETIME 03/11/20 13:31 UA W/MICROSCOPIC [URIN] Urgent - Assessment/Plan Last 24 Hours: My Active Orders 03/11/20 10:04 Sodium Chloride 0.9% [Saline Flush] 10 ml FLUSH ASDIRECTED PRN Saline Lock Insert [OM.PC] Routine 03/11/20 10:23 CULTURE BLOOD [BC] Stat 03/11/20 10:25 Blood Glucose Check, Bedside [RC] ONETIME 03/11/20 13:31 UA W/MICROSCOPIC [URIN] Urgent
[2020-03-11 10:49] LABS: CHLORIDE,CL 107 mmol/L (98-107); SODIUM,NA 139 mmol/L (136-145)
[2020-03-11 10:50] LABS: ACETAMINOPHEN 0 ug/mL (10-30 (Therapeutic))
[2020-03-11] MEDS ORDERED: Sodium Chloride 0.9% 1,000 ML IV ONE (11:08)
== END 2020-03-11 14:03 | disposition home or self-care (01) ==
LOC: DL.ED 09:52
DX: E86.0 Dehydration (principal); R51 Headache; I10 Essential (primary) hypertension; J43.9 Emphysema, unspecified; K21.9 Gastro-esophageal reflux disease without esophagitis; M19.90 Unspecified osteoarthritis, unspecified site; E03.9 Hypothyroidism, unspecified; E11.9 Type 2 diabetes mellitus without complications; E66.01 Morbid (severe) obesity due to excess calories; Z68.43 Body mass index [BMI] 50.0-59.9, adult; Z90.49 Acquired absence of other specified parts of digestive tract; Z88.8 Allergy status to other drugs, medicaments and biological substances; Z88.0 Allergy status to penicillin; Z88.2 Allergy status to sulfonamides; Z88.1 Allergy status to other antibiotic agents; Z79.4 Long term (current) use of insulin; Z79.899 Other long term (current) drug therapy
CPT/HCPCS: 36415; 80053; 80305; 80307; 81001; 82962; 83605; 85025; 87040; 96360; 96361; 99284; J7030

== ENCOUNTER 2020-05-05 12:08 | Emergency (ER) | payer MEDICAID ==
[2020-05-05 12:28] VITALS: BP 144/63; PULSE 84
[2020-05-05] MEDS ORDERED: Ondansetron 4 MG/2 ML SDV IVPUSH ONE (12:35)
[2020-05-05] MEDS ORDERED: Sodium Chloride 0.9% 1,000 ML IV ONE (12:35)
--- NOTE | 2020-05-05 12:45 | EDM.PDOC ---
ED HPI GENERAL MEDICAL PROBLEM - General Chief Complaint: Headache Stated Complaint: NAUSEA, HEADACE Time Seen by Provider: 05/05/20 12:35 Source of Information: Reports: Patient History Limitations: Reports: No Limitations - History of Present Illness INITIAL COMMENTS - FREE TEXT/NARRATIVE: This 55 yo female patient reports to the ED with a 4 day history of a headache with nausea. The patient reports her headache started 4 days ago with the nausea starting today. The patient has not taken anything for her headache and has not been seen in the clinic for her current symptoms. The patient reports her pain has been a 10/10, but seems to have gotten worse today. The patient did eat breakfast this morning and has not vomited at this time. The patient reports she can not take Tylenol due to elevated LFT's, can not take ibuprofen due to stomach pains and can not take aspirin due to an unknown reason. 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: Denies: Acetaminophen, Aspirin, NSAIDS, Other Medication(s) Headache Pain Score (Numeric/FACES): 10 - Related Data Allergies Allergy/AdvReac Type Severity Reaction Status Date / Time aspirin Allergy Cannot Verified 05/05/20 12:21 Remember atorvastatin Allergy Cannot Verified 05/05/20 12:21 Remember cephalexin Allergy Fatigue Verified 05/05/20 12:21 [From Panixine DisperDose] ciprofloxacin Allergy Diarrhea Verified 05/05/20 12:21 docusate [From Senna-S] Allergy Abdominal Verified 05/05/20 12:21 Pain levofloxacin Allergy Dizziness Verified 05/05/20 12:21 Penicillins Allergy Other Verified 05/05/20 12:21 senna [From Senna-S] Allergy Abdominal Verified 05/05/20 12:21 Pain sulfamethoxazole Allergy Shortness Verified 05/05/20 12:21 [From Bactrim] of Breath trimethoprim [From Bactrim] Allergy Shortness Verified 05/05/20 12:21 of Breath another antibiotic Allergy Cannot Uncoded 05/05/20 12:21 Remember Home Meds: Home Meds Albuterol [Proventil Neb Soln] 2.5 mg NEB Q4H PRN 02/03/15 [History] Insulin Aspart [NovoLOG] 67 units SQ TID 02/03/15 [History] Levothyroxine [Synthroid] 100 mcg PO DAILY 02/03/15 [History] Lisinopril 20 mg PO DAILY 02/03/15 [History] Magnesium Oxide 400 mg PO BID 02/03/15 [History] Omeprazole 20 mg PO BID 02/03/15 [History] Tiotropium [Spiriva Handihaler] 18 mcg INH DAILY 02/03/15 [History] Albuterol/Ipratropium [DuoNeb 3.0-0.5 MG/3 ML] 3 ml NEB Q6H PRN 03/06/15 [History] Insulin Glarg,Human.Rec.Analog [Lantus Solostar] 30 unit SUBCUT BEDTIME 03/06/15 [History] Fluticasone Furoate [Flonase Sensimist] 1 ml NS DAILY PRN 04/04/17 [History] Lactulose [Cephulac] 45 ml PO Q6H 06/22/17 [History] Past Medical History HEENT History: Reports: Impaired Vision Cardiovascular History: Reports: Hypertension Respiratory History: Reports: Asthma, COPD, Other (See Below) Other Respiratory History: Empysema Gastrointestinal History: Reports: Cholelithiasis, Cirrhosis, GERD Genitourinary History: Reports: UTI, Recurrent 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: Musculoskeletal History: Reports: Arthritis, Back Pain, Chronic Neurological History: Reports: None Psychiatric History: Reports: None Endocrine/Metabolic History: Reports: Diabetes, Type II, Hypothyroidism, IDDM, Obesity/BMI 30+ Hematologic History: Reports: None Immunologic History: Reports: None Oncologic (Cancer) History: Reports: None Dermatologic History: Reports: Other (See Below) Other Dermatologic History: skin thick and discolored to extremities - Infectious Disease History Infectious Disease History: Reports: None - Past Surgical History Head Surgeries/Procedures: Reports: None GI Surgical History: Reports: Cholecystectomy, Hernia Repair/Other Female Surgical History: Reports: Section Musculoskeletal Surgical History: Reports: Other (See Below) Other Musculoskeletal Surgeries/Procedures:: Emil in left leg. Femur bone with pins in knee Social & Family History - Family History Family Medical History: Noncontributory - Tobacco Use Smoking Status *Q: Never Smoker Second Hand Smoke Exposure: No - Caffeine Use Caffeine Use: Reports: Coffee - Recreational Drug Use Recreational Drug Use: No - Living Situation & Occupation Living situation: Reports: , with Family Occupation: Unemployed ED ROS GENERAL - Review of Systems Review Of Systems: Comprehensive ROS is negative, except as noted in HPI. - Physical Exam Exam: See Below Exam Limited By: No Limitations General Appearance: Alert, WD/WN, Moderate Distress, Obese Eye Exam: Bilateral Eye: EOMI, Normal Inspection, PERRL Ears: Normal External Exam, Normal Canal, Hearing Grossly Normal, Normal TMs Nose: Normal Inspection, Normal Mucosa, No Blood Throat/Mouth: Normal Inspection, Normal Lips, Normal Teeth, Normal Gums, Normal Oropharynx, Normal Voice, No Airway Compromise Head Exam: Atraumatic, Normocephalic Neck: Normal Inspection, Supple, Non-Tender, Full Range of Motion Respiratory/Chest: No Respiratory Distress, Lungs Clear, Normal Breath Sounds, No Accessory Muscle Use, Chest Non-Tender Cardiovascular: Normal Peripheral Pulses, Regular Rate, Rhythm, No Edema, No Gallop, No JVD, No Murmur, No Rub GI/Abdominal: Normal Bowel Sounds, Soft, Non-Tender, No Organomegaly, No Distention, No Abnormal Bruit, No Mass, Other (obese) (Female) Exam: Deferred Rectal (Female) Exam: Deferred Neuro Exam (Abbreviated): Alert, Oriented, CN II-XII Intact, Normal Cognition, No Motor/Sensory Deficits Back Exam: Normal Inspection, Full Range of Motion, NT Extremities: Normal Inspection, Normal Range of Motion, Non-Tender, No Pedal Edema, Normal Capillary Refill Psychiatric: Normal Affect, Normal Mood Skin Exam: Warm, Dry, Intact, Normal Color, No Rash Course - Vital Signs Last Recorded V/S: Last Vital Signs Temp 36.3 C 05/05/20 12:25 Pulse 84 05/05/20 12:25 Resp 18 05/05/20 12:25 BP 144/63 H 05/05/20 12:25 Pulse Ox 95 05/05/20 12:25 - Orders/Labs/Meds Orders: Active Orders 24 hr Category Date Time Status Metoclopramide [Reglan] Med 05/05/20 14:22 Once 10 mg IVPUSH ONETIME ONE Labs: Laboratory Tests 05/05/20 05/05/20 Range/Units 12:47 12:47 WBC 4.6 L (5.0-10.0) 10^3/uL RBC 3.82 L (4.2-5.4) 10^6/uL Hgb 13.3 (12.0-16.0) g/dL Hct 39.2 (37.0-47.0) % MCV 102.6 H (80-100) fL MCH 34.8 H (27.0-34.0) pg MCHC 33.9 (33.0-35.0) g/dL Plt Count 68 L (150-450) 10^3/uL Neut % (Auto) 66.8 (42.2-75.2) % Lymph % (Auto) 16.7 L (20.5-50.1) % [place] % (Auto) 11.3 H (2-8) % Eos % (Auto) 4.8 H (1.0-3.0) % Baso % (Auto) 0.4 (0.0-1.0) % Sodium 141 (136-145) mmol/L Potassium 4.2 (3.5-5.1) mmol/L Chloride 106 (98-107) mmol/L Carbon Dioxide 27 (21-32) mmol/L Anion Gap 12.2 (7-13) mEq/L BUN 18 (7-18) mg/dL Creatinine 0.97 (0.55-1.02) mg/dL Est Cr Clr Drug Dosing 55.26 mL/min Estimated GFR (MDRD) 59 BUN/Creatinine Ratio 18.6 (No establ ref range) Glucose 206 H (74-99) mg/dL Calcium 8.5 (8.5-10.1) mg/dL Total Bilirubin 2.7 H (0.2-1.0) mg/dL AST 206 H (15-37) U/L ALT 47 (14-59) U/L Alkaline Phosphatase 231 H (46-116) U/L Total Protein 7.2 (6.4-8.2) g/dL Albumin 2.1 L (3.4-5.0) g/dL Globulin 5.1 Albumin/Globulin Ratio 0.41 Meds: Medications Discontinued Medications Generic Name Dose Route Start Last Admin Trade Name Freq PRN Reason Stop Dose Admin Sodium Chloride 1,000 mls @ 999 mls/hr 05/05/20 12:35 05/05/20 12:53 Normal Saline IV 05/05/20 13:35 999 mls/hr .BOLUS ONE Administration Ketorolac Tromethamine 30 mg 05/05/20 13:23 05/05/20 13:30 Toradol IVPUSH 05/05/20 13:24 30 mg ONETIME ONE Administration Ondansetron HCl 4 mg 05/05/20 12:35 05/05/20 12:53 Zofran IVPUSH 05/05/20 12:36 4 mg ONETIME ONE Administration - Re-Assessments/Exams Free Text/Narrative Re-Assessment/Exam: 05/05/20 13:23 Reassessment revealed the patient sleeping in the wheelchair. When she was awake n, the patient reports her headache has not changed and she still feels nauseated. The patient was advised of the lab result. An order was placed for a dose of IV Toradol for her headache. 05/05/20 14:22 The patient reports no changes in her symptoms, but was again sleeping in the chair and had to be woken up. The patient reports she still feels nauseated, but has not vomited during the visit and was not holding the vomit bag on reassessment. The patient did not want any stronger medications as she does not like the side effects of medications. The patient agreed to get another nausea medication and would like to go home and rest. Departure - Departure Time of Disposition: 14:24 Disposition: Home, Self-Care 01 Condition: Fair Clinical Impression: Nausea Headache Qualifiers: Headache type: unspecified Headache chronicity pattern: acute headache Intractability: not intractable Qualified Code(s): R51 - Headache - Discharge Information *PRESCRIPTION DRUG MONITORING PROGRAM REVIEWED*: Not Applicable *COPY OF PRESCRIPTION DRUG MONITORING REPORT IN PATIENT RAY: Not Applicable Instructions: Nausea and Vomiting, Adult, [id number], Migraine Headache, [id number] Forms: ED Department Discharge Care Plan Goals: The patient was advised of the examination and lab results during the visit. The patient was given a liter of IV fluid, IV Zofran and IV Reglan while in the ED. The patient did not want any stronger medication for her headache during the visit. If the patient has any additional symptoms or concerns, the patient should either return to the emergency department or visit her primary care facility. Sepsis Event Note (ED) - Evaluation Sepsis Screening Result: No Definite Risk - Focused Exam Vital Signs: Vital Signs Temp Pulse Resp BP Pulse Ox 05/05/20 12:25 36.3 C 84 18 144/63 H 95 - My Orders Last 24 Hours: My Active Orders 05/05/20 14:22 Metoclopramide [Reglan] 10 mg IVPUSH ONETIME ONE - Assessment/Plan Last 24 Hours: My Active Orders 05/05/20 14:22 Metoclopramide [Reglan] 10 mg IVPUSH ONETIME ONE
[2020-05-05 13:13] LABS: ANION GAP 12.2 mEq/L (7-13)
[2020-05-05] MEDS ORDERED: Ketorolac 30 MG/ML SDV IVPUSH ONE (13:23)
[2020-05-05] MEDS ORDERED: Metoclopramide 10 MG/2 ML SDV IVPUSH ONE (14:22)
== END 2020-05-05 14:50 | disposition home or self-care (01) ==
LOC: DL.ED 12:08
DX: R51 Headache (principal); R11.0 Nausea; I10 Essential (primary) hypertension; K21.9 Gastro-esophageal reflux disease without esophagitis; J43.9 Emphysema, unspecified; M19.90 Unspecified osteoarthritis, unspecified site; E11.9 Type 2 diabetes mellitus without complications; E03.9 Hypothyroidism, unspecified; E66.9 Obesity, unspecified; Z68.43 Body mass index [BMI] 50.0-59.9, adult; Z88.8 Allergy status to other drugs, medicaments and biological substances; Z88.0 Allergy status to penicillin; Z88.2 Allergy status to sulfonamides; Z88.1 Allergy status to other antibiotic agents; Z79.4 Long term (current) use of insulin; Z79.899 Other long term (current) drug therapy
CPT/HCPCS: 36415; 80053; 85025; 96374; 96375; 99284; J1885; J2405; J2765; J7030

== ENCOUNTER 2020-05-18 14:15 | Emergency (ER) | payer MEDICAID ==
[2020-05-18 14:21] VITALS: BP 108/44; PULSE 69
[2020-05-18 15:30] LABS: ANION GAP 11.5 mEq/L (7-13)
--- NOTE | 2020-05-18 16:13 | EDM.PDOC ---
ED HPI GENERAL MEDICAL PROBLEM - General Chief Complaint: Cardiovascular Problem Stated Complaint: LOW BLOOD PRESSURE Time Seen by Provider: 05/18/20 14:25 Source of Information: Reports: Patient, RN, RN Notes Reviewed History Limitations: Reports: No Limitations - History of Present Illness INITIAL COMMENTS - FREE TEXT/NARRATIVE: Patient presents to ER with complaint of hypotension. Patient was being seen today for an echocardiogram, as well as PFTs. Patient states during her echocardiogram her blood pressure was 90 systolically. Patient states she has been feeling very rundown and tired. Patient states she does have diarrhea and loose stools frequently due to taking lactulose, denies any blood in her stools. Patient denies any fever chills, open sores. Patient denies chest pains or shortness of breath, more so than usual. Patient denies nausea or vomiting. Patient denies any frequency, urgency, burning with urination. Onset: Today - Related Data Allergies Allergy/AdvReac Type Severity Reaction Status Date / Time aspirin Allergy Cannot Verified 05/18/20 14:20 Remember atorvastatin Allergy Cannot Verified 05/18/20 14:20 Remember cephalexin Allergy Fatigue Verified 05/18/20 14:20 [From Panixine DisperDose] ciprofloxacin Allergy Diarrhea Verified 05/18/20 14:20 docusate [From Senna-S] Allergy Abdominal Verified 05/18/20 14:20 Pain levofloxacin Allergy Dizziness Verified 05/18/20 14:20 Penicillins Allergy Other Verified 05/18/20 14:20 senna [From Senna-S] Allergy Abdominal Verified 05/18/20 14:20 Pain sulfamethoxazole Allergy Shortness Verified 05/18/20 14:20 [From Bactrim] of Breath trimethoprim [From Bactrim] Allergy Shortness Verified 05/18/20 14:20 of Breath another antibiotic Allergy Cannot Uncoded 05/05/20 12:21 Remember Home Meds: Home Meds Albuterol [Proventil Neb Soln] 2.5 mg NEB Q4H PRN 02/03/15 [History] Insulin Aspart [NovoLOG] 67 units SQ TID 02/03/15 [History] Levothyroxine [Synthroid] 100 mcg PO DAILY 02/03/15 [History] Lisinopril 20 mg PO DAILY 02/03/15 [History] Magnesium Oxide 400 mg PO BID 02/03/15 [History] Omeprazole 20 mg PO BID 02/03/15 [History] Tiotropium [Spiriva Handihaler] 18 mcg INH DAILY 02/03/15 [History] Albuterol/Ipratropium [DuoNeb 3.0-0.5 MG/3 ML] 3 ml NEB Q6H PRN 03/06/15 [History] Insulin Glarg,Human.Rec.Analog [Lantus Solostar] 30 unit SUBCUT BEDTIME 03/06/15 [History] Fluticasone Furoate [Flonase Sensimist] 1 ml NS DAILY PRN 04/04/17 [History] Lactulose [Cephulac] 45 ml PO Q6H 06/22/17 [History] Past Medical History HEENT History: Reports: Impaired Vision Cardiovascular History: Reports: Hypertension Respiratory History: Reports: Asthma, COPD, Other (See Below) Other Respiratory History: Empysema Gastrointestinal History: Reports: Cholelithiasis, Cirrhosis, GERD Genitourinary History: Reports: UTI, Recurrent 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: Musculoskeletal History: Reports: Arthritis, Back Pain, Chronic Neurological History: Reports: None Psychiatric History: Reports: None Endocrine/Metabolic History: Reports: Diabetes, Type II, Hypothyroidism, IDDM, Obesity/BMI 30+ Hematologic History: Reports: None Immunologic History: Reports: None Oncologic (Cancer) History: Reports: None Dermatologic History: Reports: Other (See Below) Other Dermatologic History: skin thick and discolored to extremities - Infectious Disease History Infectious Disease History: Reports: None - Past Surgical History Head Surgeries/Procedures: Reports: None GI Surgical History: Reports: Cholecystectomy, Hernia Repair/Other Female Surgical History: Reports: Section Musculoskeletal Surgical History: Reports: Other (See Below) Other Musculoskeletal Surgeries/Procedures:: Emil in left leg. Femur bone with pins in knee Social & Family History - Family History Family Medical History: Noncontributory - Tobacco Use Smoking Status *Q: Never Smoker Second Hand Smoke Exposure: No - Caffeine Use Caffeine Use: Reports: Coffee - Recreational Drug Use Recreational Drug Use: No - Living Situation & Occupation Living situation: Reports: , with Family Occupation: Unemployed ED ROS GENERAL - Review of Systems Review Of Systems: Comprehensive ROS is negative, except as noted in HPI. ED EXAM, GENERAL - Physical Exam Exam: See Below Exam Limited By: No Limitations General Appearance: Alert, WD/WN, No Apparent Distress, Obese Eye Exam: Bilateral Eye: EOMI, Normal Inspection Ears: Normal External Exam, Hearing Grossly Normal Nose: Normal Inspection Throat/Mouth: Normal Inspection, Normal Voice, No Airway Compromise Head: Atraumatic, Normocephalic Neck: Normal Inspection, Supple, Non-Tender, Full Range of Motion Respiratory/Chest: No Respiratory Distress, Lungs Clear, Normal Breath Sounds, No Accessory Muscle Use, Chest Non-Tender, Decreased Breath Sounds Cardiovascular: Normal Peripheral Pulses, Regular Rate, Rhythm, No Edema, No Gallop, No JVD, No Murmur, No Rub Peripheral Pulses: 2+: Radial (L), Radial (R) GI/Abdominal: Normal Bowel Sounds, Soft, Non-Tender (Female) Exam: Deferred Rectal (Female) Exam: Deferred Back Exam: Normal Inspection, Full Range of Motion, NT Extremities: Normal Inspection, Normal Range of Motion, Non-Tender, Normal Capillary Refill, No Pedal Edema Neurological: Alert, Oriented, CN II-XII Intact, Normal Cognition, Normal Gait, Normal Reflexes, No Motor/Sensory Deficits Psychiatric: Normal Affect, Normal Mood Skin Exam: Warm, Dry, Intact, Normal Color, No Rash Lymphatic: No Adenopathy Course - Vital Signs Last Recorded V/S: Last Vital Signs Temp 97.5 F 05/18/20 14:16 Pulse 69 05/18/20 14:16 Resp 18 05/18/20 14:16 BP 108/44 L 05/18/20 14:16 Pulse Ox 90 L 05/18/20 14:16 - Orders/Labs/Meds Orders: Active Orders 24 hr Category Date Time Status UA RFX HALIE AND CULT IF INDIC [URIN] Stat Lab 05/18/20 14:39 Ordered Labs: Laboratory Tests 05/18/20 05/18/20 Range/Units 15:00 15:00 WBC 3.7 L (5.0-10.0) 10^3/uL RBC 3.82 L (4.2-5.4) 10^6/uL Hgb 13.4 (12.0-16.0) g/dL Hct 38.4 (37.0-47.0) % MCV 100.5 H (80-100) fL MCH 35.1 H (27.0-34.0) pg MCHC 34.9 (33.0-35.0) g/dL Plt Count 61 L (150-450) 10^3/uL Neut % (Auto) 55.5 (42.2-75.2) % Lymph % (Auto) 23.3 (20.5-50.1) % [place] % (Auto) 15.3 H (2-8) % Eos % (Auto) 5.4 H (1.0-3.0) % Baso % (Auto) 0.5 (0.0-1.0) % Sodium 138 (136-145) mmol/L Potassium 4.5 (3.5-5.1) mmol/L Chloride 108 H (98-107) mmol/L Carbon Dioxide 23 (21-32) mmol/L Anion Gap 11.5 (7-13) mEq/L BUN 12 (7-18) mg/dL Creatinine 1.03 H (0.55-1.02) mg/dL Est Cr Clr Drug Dosing 52.04 mL/min Estimated GFR (MDRD) 55 BUN/Creatinine Ratio 11.7 (No establ ref range) Glucose 169 H (74-99) mg/dL Calcium 7.9 L (8.5-10.1) mg/dL Total Bilirubin 2.0 H (0.2-1.0) mg/dL AST 114 H (15-37) U/L ALT 45 (14-59) U/L Alkaline Phosphatase 263 H (46-116) U/L Total Protein 6.9 (6.4-8.2) g/dL Albumin 1.9 L (3.4-5.0) g/dL Globulin 5.0 Albumin/Globulin Ratio 0.38 - Re-Assessments/Exams Free Text/Narrative Re-Assessment/Exam: 05/18/20 16:16 Patient states she is feeling fine and would like to leave. Patient states she cannot provide a urine sample at this time. Departure - Departure Time of Disposition: 16:17 Disposition: Home, Self-Care 01 Reason for Transfer *Q: Other Condition: Good Clinical Impression: Hypotension Qualifiers: Hypotension type: unspecified hypotension type Qualified Code(s): I95.9 - Hypotension, unspecified Instructions: Hypotension, [id number] Forms: ED Department Discharge Additional Instructions: If you develop dizziness, or passing out, return to ER Drink plenty of water Follow-up with your primary care provider next week Sepsis Event Note (ED) - Evaluation Sepsis Screening Result: No Definite Risk - Focused Exam Vital Signs: Vital Signs Temp Pulse Resp BP Pulse Ox 05/18/20 14:16 97.5 F 69 18 108/44 L 90 L - My Orders Last 24 Hours: My Active Orders 05/18/20 14:39 UA RFX HALIE AND CULT IF INDIC [URIN] Stat - Assessment/Plan Last 24 Hours: My Active Orders 05/18/20 14:39 UA RFX HALIE AND CULT IF INDIC [URIN] Stat
== END 2020-05-18 16:28 | disposition home or self-care (01) ==
LOC: DL.ED 14:15
DX: I95.9 Hypotension, unspecified (principal); I10 Essential (primary) hypertension; J44.9 Chronic obstructive pulmonary disease, unspecified; K21.9 Gastro-esophageal reflux disease without esophagitis; E11.9 Type 2 diabetes mellitus without complications; E03.9 Hypothyroidism, unspecified; E66.9 Obesity, unspecified; Z68.43 Body mass index [BMI] 50.0-59.9, adult; Z88.6 Allergy status to analgesic agent; Z88.8 Allergy status to other drugs, medicaments and biological substances; Z88.1 Allergy status to other antibiotic agents; Z88.0 Allergy status to penicillin; Z88.2 Allergy status to sulfonamides; Z79.4 Long term (current) use of insulin; Z79.899 Other long term (current) drug therapy
CPT/HCPCS: 36415; 80053; 85025; 99283

== ENCOUNTER 2020-08-08 11:14 | Emergency (ER) | payer MEDICAID ==
--- NOTE | 2020-08-08 11:58 | EDM.PDOC ---
ED HPI GENERAL MEDICAL PROBLEM - General Chief Complaint: Gastrointestinal Problem Stated Complaint: TOLD TO COME IN NOT SPECIFIC Time Seen by Provider: 08/08/20 11:53 Source of Information: Reports: Patient, RN, RN Notes Reviewed History Limitations: Reports: No Limitations - History of Present Illness INITIAL COMMENTS - FREE TEXT/NARRATIVE: Patient presents to the ED with complaints of bloody stool. Per the patient, she underwent a diagnostic colonoscopy at [facility] on Thursday08/06/20 at the request of her schedule supervisor, Nancy Bee PA-C. She states she noticed blood in her stool for the first time this morning at approximately 1030. She denies abdominal pain, nausea, vomiting, fever, chills, or recent illness. She does attest to general malaise and states she "feels weak." She has not taken any medications for this problem. - Related Data Allergies Allergy/AdvReac Type Severity Reaction Status Date / Time aspirin Allergy Cannot Verified 08/08/20 11:25 Remember atorvastatin Allergy Cannot Verified 08/08/20 11:25 Remember cephalexin Allergy Fatigue Verified 08/08/20 11:25 [From Panixine DisperDose] ciprofloxacin Allergy Diarrhea Verified 08/08/20 11:25 docusate [From Senna-S] Allergy Abdominal Verified 08/08/20 11:25 Pain levofloxacin Allergy Dizziness Verified 08/08/20 11:25 Penicillins Allergy Other Verified 08/08/20 11:25 senna [From Senna-S] Allergy Abdominal Verified 08/08/20 11:25 Pain sulfamethoxazole Allergy Shortness Verified 08/08/20 11:25 [From Bactrim] of Breath trimethoprim [From Bactrim] Allergy Shortness Verified 08/08/20 11:25 of Breath another antibiotic Allergy Cannot Uncoded 05/05/20 12:21 Remember Home Meds: Home Meds Albuterol [Proventil Neb Soln] 2.5 mg NEB Q4H PRN 02/03/15 [History] Insulin Aspart [NovoLOG] 67 units SQ TID 02/03/15 [History] Levothyroxine [Synthroid] 100 mcg PO DAILY 02/03/15 [History] Lisinopril 20 mg PO DAILY 02/03/15 [History] Magnesium Oxide 400 mg PO BID 02/03/15 [History] Omeprazole 20 mg PO BID 02/03/15 [History] Tiotropium [Spiriva Handihaler] 18 mcg INH DAILY 02/03/15 [History] Albuterol/Ipratropium [DuoNeb 3.0-0.5 MG/3 ML] 3 ml NEB Q6H PRN 03/06/15 [History] Insulin Glarg,Human.Rec.Analog [Lantus Solostar] 30 unit SUBCUT BEDTIME 03/06/15 [History] Fluticasone Furoate [Flonase Sensimist] 1 ml NS DAILY PRN 04/04/17 [History] Lactulose [Cephulac] 45 ml PO Q6H 06/22/17 [History] Past Medical History HEENT History: Reports: Impaired Vision Cardiovascular History: Reports: Hypertension Respiratory History: Reports: Asthma, COPD, Other (See Below) Other Respiratory History: Empysema Gastrointestinal History: Reports: Cholelithiasis, Cirrhosis, GERD Genitourinary History: Reports: UTI, Recurrent [employer] History: Reports: Musculoskeletal History: Reports: Arthritis, Back Pain, Chronic Neurological History: Reports: None Psychiatric History: Reports: None Endocrine/Metabolic History: Reports: Diabetes, Type II, Hypothyroidism, IDDM, Obesity/BMI 30+ Hematologic History: Reports: None Immunologic History: Reports: None Oncologic (Cancer) History: Reports: None Dermatologic History: Reports: Other (See Below) Other Dermatologic History: skin thick and discolored to extremities - Infectious Disease History Infectious Disease History: Reports: None - Past Surgical History Head Surgeries/Procedures: Reports: None GI Surgical History: Reports: Cholecystectomy, Hernia Repair/Other Female Surgical History: Reports: Section Musculoskeletal Surgical History: Reports: Other (See Below) Other Musculoskeletal Surgeries/Procedures:: Emil in left leg. Femur bone with pins in knee Social & Family History - Family History Family Medical History: Noncontributory - Tobacco Use Tobacco Use Status *Q: Never Tobacco User - Caffeine Use Caffeine Use: Reports: Coffee - Recreational Drug Use Recreational Drug Use: No - Living Situation & Occupation Living situation: Reports: , with Family Occupation: Unemployed ED ROS GENERAL - Review of Systems Review Of Systems: Comprehensive ROS is negative, except as noted in HPI. ED EXAM, GI/ABD - Physical Exam Exam: See Below Exam Limited By: No Limitations General Appearance: Alert, WD/WN, No Apparent Distress GI/Abdominal Exam: Normal Bowel Sounds, Soft, Non-Tender, No Organomegaly, No Distention, No Mass (Female) Exam: Deferred Rectal (Female) Exam: Deferred Neurological: Alert, Oriented Skin Exam: Warm, Dry, Intact, Normal Color, No Rash. No: Ecchymosis, Erythema, Petechiae, Rash Course - Vital Signs Last Recorded V/S: Last Vital Signs Temp 100 F 08/08/20 14:46 Pulse 67 08/08/20 14:46 Resp 22 H 08/08/20 14:46 BP 104/86 08/08/20 14:46 Pulse Ox 98 08/08/20 14:46 - Orders/Labs/Meds Labs: Laboratory Tests 08/08/20 08/08/20 08/08/20 Range/Units 11:42 11:42 11:42 WBC 3.6 L (5.0-10.0) 10^3/uL RBC 3.46 L (4.2-5.4) 10^6/uL Hgb 11.7 L D (12.0-16.0) g/dL Hct 34.7 L (37.0-47.0) % MCV 100.3 H (80-100) fL MCH 33.8 (27.0-34.0) pg MCHC 33.7 (33.0-35.0) g/dL Plt Count 59 L (150-450) 10^3/uL Neut % (Auto) 59.8 (42.2-75.2) % Lymph % (Auto) 22.7 (20.5-50.1) % [place] % (Auto) 12.2 H (2-8) % Eos % (Auto) 5.0 H (1.0-3.0) % Baso % (Auto) 0.3 (0.0-1.0) % Sodium 139 (136-145) mmol/L Potassium 4.7 (3.5-5.1) mmol/L Chloride 109 H (98-107) mmol/L Carbon Dioxide 21 (21-32) mmol/L Anion Gap 13.7 H (7-13) mEq/L BUN 15 (7-18) mg/dL Creatinine 1.07 H (0.55-1.02) mg/dL Est Cr Clr Drug Dosing TNP Estimated GFR (MDRD) 53 BUN/Creatinine Ratio 14.0 (No establ ref range) Glucose 152 H (74-99) mg/dL Calcium 7.8 L (8.5-10.1) mg/dL Total Bilirubin 2.1 H (0.2-1.0) mg/dL AST 508 H (15-37) U/L ALT 57 (14-59) U/L Alkaline Phosphatase 333 H (46-116) U/L Ammonia (11-32) umol/L Total Protein 7.1 (6.4-8.2) g/dL Albumin 1.8 L (3.4-5.0) g/dL Globulin 5.3 Albumin/Globulin Ratio 0.34 Amylase 73 (25-115) U/L Lipase 325 (73-393) U/L Blood Type O POSITIVE Gel Antibody Screen Negative 08/08/20 Range/Units 11:42 WBC (5.0-10.0) 10^3/uL RBC (4.2-5.4) 10^6/uL Hgb (12.0-16.0) g/dL Hct (37.0-47.0) % MCV (80-100) fL MCH (27.0-34.0) pg MCHC (33.0-35.0) g/dL Plt Count (150-450) 10^3/uL Neut % (Auto) (42.2-75.2) % Lymph % (Auto) (20.5-50.1) % [place] % (Auto) (2-8) % Eos % (Auto) (1.0-3.0) % Baso % (Auto) (0.0-1.0) % Sodium (136-145) mmol/L Potassium (3.5-5.1) mmol/L Chloride (98-107) mmol/L Carbon Dioxide (21-32) mmol/L Anion Gap (7-13) mEq/L BUN (7-18) mg/dL Creatinine (0.55-1.02) mg/dL Est Cr Clr Drug Dosing Estimated GFR (MDRD) BUN/Creatinine Ratio (No establ ref range) Glucose (74-99) mg/dL Calcium (8.5-10.1) mg/dL Total Bilirubin (0.2-1.0) mg/dL AST (15-37) U/L ALT (14-59) U/L Alkaline Phosphatase (46-116) U/L Ammonia 162 H (11-32) umol/L Total Protein (6.4-8.2) g/dL Albumin (3.4-5.0) g/dL Globulin Albumin/Globulin Ratio Amylase (25-115) U/L Lipase (73-393) U/L Blood Type Gel Antibody Screen - Re-Assessments/Exams Free Text/Narrative Re-Assessment/Exam: 08/08/20 11:50 Will obtain CBC, CMP, amylase, lipase, and type/screen. 08/08/20 11:55 Initiated Transfer. Hgb stable. 08/08/20 13:05 Dr. Ridley to accept at [facility]. [facility], [facility] and [facility] not accepting at this time. Departure - Departure Time of Disposition: 15:53 Disposition: DC/Tfer to Acute Hospital 02 Condition: Good Clinical Impression: GI bleeding Qualifiers: GI bleed type/associated pathology: unspecified gastrointestinal hemorrhage type Qualified Code(s): K92.2 - Gastrointestinal hemorrhage, unspecified Cirrhosis of liver Qualifiers: Hepatic cirrhosis type: unspecified hepatic cirrhosis Ascites presence: unspecified Qualified Code(s): K74.60 - Unspecified cirrhosis of liver - Discharge Information Forms: ED Department Discharge Sepsis Event Note (ED) - Evaluation Sepsis Screening Result: No Definite Risk - Focused Exam Vital Signs: Vital Signs Temp Pulse Resp BP BP Pulse Ox 08/08/20 14:46 100 F 67 22 H 104/86 98 08/08/20 13:45 98.3 F 74 22 H 115/51 L 97 08/08/20 11:25 97.6 F 87 16 133/58 L 98
[2020-08-08 12:06] LABS: ANION GAP 13.7 mEq/L (7-13); CHLORIDE,CL 109 mmol/L (98-107); SODIUM,NA 139 mmol/L (136-145)
[2020-08-08 16:03] VITALS: BP 104/86; PULSE 67
== END 2020-08-08 16:03 ==
LOC: DL.ED 11:14
DX: K74.60 Unspecified cirrhosis of liver (principal); K92.2 Gastrointestinal hemorrhage, unspecified; I10 Essential (primary) hypertension; J43.9 Emphysema, unspecified; K21.9 Gastro-esophageal reflux disease without esophagitis; M19.90 Unspecified osteoarthritis, unspecified site; E03.9 Hypothyroidism, unspecified; E11.9 Type 2 diabetes mellitus without complications; Z79.4 Long term (current) use of insulin; Z79.899 Other long term (current) drug therapy; Z88.5 Allergy status to narcotic agent; Z88.0 Allergy status to penicillin; Z88.1 Allergy status to other antibiotic agents; Z88.8 Allergy status to other drugs, medicaments and biological substances; Z68.42 Body mass index [BMI] 45.0-49.9, adult
CPT/HCPCS: 36415; 80053; 82140; 82150; 82272; 83690; 85025; 86850; 86900; 86901; 99285

== ENCOUNTER 2020-09-03 03:30 | Emergency (ER) | payer MEDICAID ==
[2020-09-03 03:21] VITALS: BP 90/41; PULSE 82
[~2020-09-03 03:30] MED LIST: Ondansetron 4 MG/2 ML SDV IV ONE; Sodium Chloride 0.9% 1,000 ML IV ONE
[2020-09-03 03:41] LABS: ANION GAP 16.1 mEq/L (7-13)
--- NOTE | 2020-09-03 03:59 | CR ---
PROCEDURE INFORMATION: Exam: XR Chest, 1 View Exam date and time: 09/03/2020 3:31 AM Age: 55 years old Clinical indication: Chest pain; Type not specified TECHNIQUE: Imaging protocol: XR of the chest Views: 1 view. COMPARISON: No relevant prior studies available. FINDINGS: Lungs: Bilateral perihilar vascular congestion. Patchy mid to lower lung airspace opacities. Pleural space: No pneumothorax. There is not appear to be a significant pleural effusion. Heart/Mediastinum: Mild cardiomegaly. Bones/joints: The visualized bones are intact without fracture or focal osseous lesion. The thoracic spine is underpenetrated limiting evaluation. Other findings: Exam is limited by underpenetration associated with body habitus. IMPRESSION: Bilateral perihilar vascular congestion and patchy opacification of the mid to lower lungs. Consider edema and/or infiltrate combination. Correlate clinically
[2020-09-03] MEDS ORDERED: Lactated Ringers 1,000 ML IV ONE (04:09)
[2020-09-03] MEDS ORDERED: Midodrine 2.5 MG Tab PO ONE (04:38)
--- NOTE | 2020-09-03 04:53 | EDM.PDOC ---
"<Juana Perales - Last Filed: 09/03/20 06:34> ED HPI GENERAL MEDICAL PROBLEM - General Chief Complaint: Chest Pain Stated Complaint: AMBULANCE-CHEST PAIN Time Seen by Provider: 09/03/20 03:30 Source of Information: Reports: Patient, EMS, EMS Notes Reviewed, RN, RN Notes Reviewed History Limitations: Reports: No Limitations - History of Present Illness INITIAL COMMENTS - FREE TEXT/NARRATIVE: Patient presents to ER per [facility] with complaint of left- sided chest pain that has been present since before 7 PM last evening. Patient states she woke up a few times short of breath. Denies cough, sore throat, known exposure to Covid, fever, chills. Patient admits to nausea from time to time, denies vomiting. Admits to diarrhea, as she takes lactulose for history of liver failure, hepatic encephalopathy. Patient denies any drug or alcohol use. Patient is unsure of any urinary symptoms. Patient was given 1 nitroglycerin in route per EMS which dropped her blood pressure to 90s systolically. 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 Left Chest Pain Score (Numeric/FACES): 7 - Related Data Allergies Allergy/AdvReac Type Severity Reaction Status Date / Time aspirin Allergy Cannot Verified 08/08/20 11:25 Remember atorvastatin Allergy Cannot Verified 08/08/20 11:25 Remember cephalexin Allergy Fatigue Verified 08/08/20 11:25 [From Panixine DisperDose] ciprofloxacin Allergy Diarrhea Verified 08/08/20 11:25 docusate [From Senna-S] Allergy Abdominal Verified 08/08/20 11:25 Pain levofloxacin Allergy Dizziness Verified 08/08/20 11:25 Penicillins Allergy Other Verified 08/08/20 11:25 senna [From Senna-S] Allergy Abdominal Verified 08/08/20 11:25 Pain sulfamethoxazole Allergy Shortness Verified 08/08/20 11:25 [From Bactrim] of Breath trimethoprim [From Bactrim] Allergy Shortness Verified 08/08/20 11:25 of Breath another antibiotic Allergy Cannot Uncoded 05/05/20 12:21 Remember Home Meds: Home Meds Albuterol [Proventil Neb Soln] 2.5 mg NEB Q4H PRN 02/03/15 [History] Insulin Aspart [NovoLOG] 67 units SQ TID 02/03/15 [History] Levothyroxine [Synthroid] 100 mcg PO DAILY 02/03/15 [History] Lisinopril 20 mg PO DAILY 02/03/15 [History] Magnesium Oxide 400 mg PO BID 02/03/15 [History] Omeprazole 20 mg PO BID 02/03/15 [History] Tiotropium [Spiriva Handihaler] 18 mcg INH DAILY 02/03/15 [History] Albuterol/Ipratropium [DuoNeb 3.0-0.5 MG/3 ML] 3 ml NEB Q6H PRN 03/06/15 [History] Insulin Glarg,Human.Rec.Analog [Lantus Solostar] 30 unit SUBCUT BEDTIME 03/06/15 [History] Fluticasone Furoate [Flonase Sensimist] 1 ml NS DAILY PRN 04/04/17 [History] Lactulose [Cephulac] 45 ml PO Q6H 06/22/17 [History] Past Medical History HEENT History: Reports: Impaired Vision Cardiovascular History: Reports: Hypertension Respiratory History: Reports: Asthma, COPD, Other (See Below) Other Respiratory History: Empysema Gastrointestinal History: Reports: Cholelithiasis, Cirrhosis, GERD Genitourinary History: Reports: UTI, Recurrent CORONARY 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: Reports: , Other (See Below) Musculoskeletal History: Reports: Arthritis, Back Pain, Chronic Neurological History: Reports: None Psychiatric History: Reports: None Endocrine/Metabolic History: Reports: Diabetes, Type II, Hypothyroidism, IDDM, Obesity/BMI 30+ Hematologic History: Reports: None Immunologic History: Reports: None Oncologic (Cancer) History: Reports: None Dermatologic History: Reports: Other (See Below) Other Dermatologic History: skin thick and discolored to extremities - Infectious Disease History Infectious Disease History: Reports: None - Past Surgical History Head Surgeries/Procedures: Reports: None GI Surgical History: Reports: Cholecystectomy, Hernia Repair/Other Female Surgical History: Reports: Section, Tubal Ligation Musculoskeletal Surgical History: Reports: Other (See Below) Other Musculoskeletal Surgeries/Procedures:: Emil in left leg. Femur bone with pins in knee Social & Family History - Family History Family Medical History: Noncontributory - Tobacco Use Tobacco Use Status *Q: Never Tobacco User Second Hand Smoke Exposure: No - Caffeine Use Caffeine Use: Reports: None - Recreational Drug Use Recreational Drug Use: No - Living Situation & Occupation Living situation: Reports: , with Family Occupation: Unemployed ED ROS GENERAL - Review of Systems Review Of Systems: Comprehensive ROS is negative, except as noted in HPI. ED EXAM, GENERAL - Physical Exam Exam: See Below Exam Limited By: No Limitations General Appearance: Alert, WD/WN, No Apparent Distress Eye Exam: Bilateral Eye: EOMI, Normal Inspection Ears: Normal External Exam, Hearing Grossly Normal Nose: Normal Inspection Throat/Mouth: Normal Inspection, Normal Voice, No Airway Compromise Head: Atraumatic, Normocephalic Neck: Normal Inspection, Supple, Non-Tender, Full Range of Motion Respiratory/Chest: No Respiratory Distress, No Accessory Muscle Use, Chest Non- Tender, Decreased Breath Sounds Cardiovascular: Normal Peripheral Pulses, Regular Rate, Rhythm, No Edema, No Gallop, No JVD, No Murmur, No Rub Peripheral Pulses: 2+: Radial (L), Radial (R) GI/Abdominal: Normal Bowel Sounds, Soft, Tender, Other (Very large obese pannus) (Female) Exam: Deferred Rectal (Female) Exam: Deferred Back Exam: Normal Inspection, Full Range of Motion, NT Extremities: Normal Inspection, Normal Range of Motion, Non-Tender, Normal Capillary Refill, No Pedal Edema Neurological: Alert, Oriented, CN II-XII Intact, Normal Cognition, Normal Reflexes, No Motor/Sensory Deficits Psychiatric: Normal Affect, Normal Mood Skin Exam: Warm, Dry, Intact, Normal Color, No Rash Lymphatic: No Adenopathy Course - Radiology Interpretation Free Text/Narrative:: Chest xray: PROCEDURE INFORMATION: Exam: XR Chest, 1 View Exam date and time: 09/03/2020 3:31 AM Age: 55 years old Clinical indication: Chest pain; Type not specified TECHNIQUE: Imaging protocol: XR of the chest Views: 1 view. COMPARISON: No relevant prior studies available. FINDINGS: Lungs: Bilateral perihilar vascular congestion. Patchy mid to lower lung airspace opacities. Pleural space: No pneumothorax. There is not appear to be a significant pleural effusion. Heart/Mediastinum: Mild cardiomegaly. Bones/joints: The visualized bones are intact without fracture or focal osseous lesion. The thoracic spine is underpenetrated limiting evaluation. Other findings: Exam is limited by underpenetration associated with body habitus. IMPRESSION: Bilateral perihilar vascular congestion and patchy opacification of the mid to lower lungs. Consider edema and/or infiltrate combination. Correlate clinically Thank you for allowing us to participate in the care of your patient. Dictated and Authenticated by: Annie Carcamo MD 09/03/2020 3:58 AM Central Time ([place] & [place]) See rad report Departure - Departure Disposition: Home, Self-Care 01 Clinical Impression: Pneumonia due to COVID-19 virus Forms: ED Department Discharge Additional Instructions: Rx: Decadron Take your prescription until gone. Drink plenty of water to stay hydrated. Take Tylenol 650mg every six hours to help with muscle aches and fever. Follow the [facility] Department guidelines regarding quarantine. Sepsis Event Note (ED) - Evaluation Sepsis Screening Result: No Definite Risk <Sandhya Merino - Last Filed: 09/03/20 09:48> Course - Vital Signs Last Recorded V/S: Last Vital Signs Temp 98 F 09/03/20 03:16 Pulse 82 09/03/20 03:16 Resp 18 09/03/20 03:16 BP 90/41 L 09/03/20 03:16 Pulse Ox 94 L 09/03/20 03:16 - Orders/Labs/Meds Orders: Active Orders 24 hr Category Date Time Status EKG Documentation Completion [RC] STAT Care 09/03/20 02:56 Active URINALYSIS W/MICROSCOPIC [UA W/MICROSCOPIC] [URIN] Stat Lab 09/03/20 04:10 Ordered Labs: Laboratory Tests 09/03/20 09/03/20 09/03/20 Range/Units 03:13 03:13 03:13 WBC 5.2 (5.0-10.0) 10^3/uL RBC 3.54 L (4.2-5.4) 10^6/uL Hgb 12.1 (12.0-16.0) g/dL Hct 35.9 L (37.0-47.0) % MCV 101.4 H (80-100) fL MCH 34.2 H (27.0-34.0) pg MCHC 33.7 (33.0-35.0) g/dL Plt Count 90 L (150-450) 10^3/uL Neut % (Auto) 54.9 (42.2-75.2) % Lymph % (Auto) 28.3 (20.5-50.1) % [place] % (Auto) 11.0 H (2-8) % Eos % (Auto) 5.6 H (1.0-3.0) % Baso % (Auto) 0.2 (0.0-1.0) % Add Manual Diff Yes Neutrophils % (Manual) 50 (42-75) % Band Neutrophils % 3 % Lymphocytes % (Manual) 29 (20-50) % Monocytes % (Manual) 12 H (2-8) % Eosinophils % (Manual) 6 H (1-3) % PT 12.9 H (9.0-12.0) SEC INR 1.4 H (0.9-1.2) D-Dimer, Quantitative (0-400) ng/mL Sodium 141 (136-145) mmol/L Potassium 5.1 (3.5-5.1) mmol/L Chloride 112 H (98-107) mmol/L Carbon Dioxide 18 L (21-32) mmol/L Anion Gap 16.1 H (7-13) mEq/L BUN 37 H (7-18) mg/dL Creatinine 1.19 H (0.55-1.02) mg/dL Est Cr Clr Drug Dosing 45.04 mL/min Estimated GFR (MDRD) 47 BUN/Creatinine Ratio 31.1 (No establ ref range) Glucose 121 H (74-99) mg/dL Calcium 8.5 (8.5-10.1) mg/dL Total Bilirubin 2.3 H (0.2-1.0) mg/dL AST 299 H (15-37) U/L ALT 50 (14-59) U/L Alkaline Phosphatase 399 H (46-116) U/L Ammonia (11-32) umol/L Troponin I 0.059 H* (0.000-0.056) ng/mL C-Reactive Protein 3.5 H (0.0-0.9) mg/dL B-Natriuretic Peptide 56 (0-100) pg/ml Total Protein 7.6 (6.4-8.2) g/dL Albumin 1.8 L (3.4-5.0) g/dL Globulin 5.8 Albumin/Globulin Ratio 0.31 SARS CoV-2 RNA Rapid BONITA (NEGATIVE) 11/09/20 11/09/20 11/09/20 Range/Units 03:13 05:05 09:15 WBC (5.0-10.0) 10^3/uL RBC (4.2-5.4) 10^6/uL Hgb (12.0-16.0) g/dL Hct (37.0-47.0) % MCV (80-100) fL MCH (27.0-34.0) pg MCHC (33.0-35.0) g/dL Plt Count (150-450) 10^3/uL Neut % (Auto) (42.2-75.2) % Lymph % (Auto) (20.5-50.1) % [place] % (Auto) (2-8) % Eos % (Auto) (1.0-3.0) % Baso % (Auto) (0.0-1.0) % Add Manual Diff Neutrophils % (Manual) (42-75) % Band Neutrophils % % Lymphocytes % (Manual) (20-50) % Monocytes % (Manual) (2-8) % Eosinophils % (Manual) (1-3) % PT (9.0-12.0) SEC INR (0.9-1.2) D-Dimer, Quantitative 1860 H (0-400) ng/mL Sodium (136-145) mmol/L Potassium (3.5-5.1) mmol/L Chloride (98-107) mmol/L Carbon Dioxide (21-32) mmol/L Anion Gap (7-13) mEq/L BUN (7-18) mg/dL Creatinine (0.55-1.02) mg/dL Est Cr Clr Drug Dosing mL/min Estimated GFR (MDRD) BUN/Creatinine Ratio (No establ ref range) Glucose (74-99) mg/dL Calcium (8.5-10.1) mg/dL Total Bilirubin (0.2-1.0) mg/dL AST (15-37) U/L ALT (14-59) U/L Alkaline Phosphatase (46-116) U/L Ammonia (11-32) umol/L Troponin I 0.056 (0.000-0.056) ng/mL C-Reactive Protein (0.0-0.9) mg/dL B-Natriuretic Peptide (0-100) pg/ml Total Protein (6.4-8.2) g/dL Albumin (3.4-5.0) g/dL Globulin Albumin/Globulin Ratio SARS CoV-2 RNA Rapid BONITA Negative (NEGATIVE) 09/03/20 Range/Units 09:15 WBC (5.0-10.0) 10^3/uL RBC (4.2-5.4) 10^6/uL Hgb (12.0-16.0) g/dL Hct (37.0-47.0) % MCV (80-100) fL MCH (27.0-34.0) pg MCHC (33.0-35.0) g/dL Plt Count (150-450) 10^3/uL Neut % (Auto) (42.2-75.2) % Lymph % (Auto) (20.5-50.1) % [place] % (Auto) (2-8) % Eos % (Auto) (1.0-3.0) % Baso % (Auto) (0.0-1.0) % Add Manual Diff Neutrophils % (Manual) (42-75) % Band Neutrophils % % Lymphocytes % (Manual) (20-50) % Monocytes % (Manual) (2-8) % Eosinophils % (Manual) (1-3) % PT (9.0-12.0) SEC INR (0.9-1.2) D-Dimer, Quantitative (0-400) ng/mL Sodium (136-145) mmol/L Potassium (3.5-5.1) mmol/L Chloride (98-107) mmol/L Carbon Dioxide (21-32) mmol/L Anion Gap (7-13) mEq/L BUN (7-18) mg/dL Creatinine (0.55-1.02) mg/dL Est Cr Clr Drug Dosing mL/min Estimated GFR (MDRD) BUN/Creatinine Ratio (No establ ref range) Glucose (74-99) mg/dL Calcium (8.5-10.1) mg/dL Total Bilirubin (0.2-1.0) mg/dL AST (15-37) U/L ALT (14-59) U/L Alkaline Phosphatase (46-116) U/L Ammonia 61 H (11-32) umol/L Troponin I (0.000-0.056) ng/mL C-Reactive Protein (0.0-0.9) mg/dL B-Natriuretic Peptide (0-100) pg/ml Total Protein (6.4-8.2) g/dL Albumin (3.4-5.0) g/dL Globulin Albumin/Globulin Ratio SARS CoV-2 RNA Rapid BONITA (NEGATIVE) Meds: Medications Discontinued Medications Generic Name Dose Route Start Last Admin Trade Name Navneetq PRN Reason Stop Dose Admin Dexamethasone 6 mg 09/03/20 09:44 Decadron IVPUSH 09/03/20 09:45 ONETIME ONE Sodium Chloride 1,000 mls @ 999 mls/hr 09/03/20 03:16 09/03/20 03:15 Normal Saline IV 09/03/20 04:16 999 mls/hr .BOLUS ONE Administration Lactated Ringer's 1,000 mls @ 999 mls/hr 09/03/20 04:09 09/03/20 04:14 Ringers, Lactated IV 09/03/20 05:09 999 mls/hr .BOLUS ONE Administration Iopamidol 100 ml 09/03/20 05:48 09/03/20 07:22 Isovue-370 (76%) IVPUSH 09/03/20 05:49 100 ml ONETIME ONE Administration Midodrine 5 mg 09/03/20 04:38 09/03/20 04:55 Midodrine PO 09/03/20 04:39 5 mg ONETIME ONE Administration Ondansetron HCl 4 mg 09/03/20 03:14 09/03/20 03:18 Zofran IV 09/03/20 03:15 4 mg ONETIME ONE Administration - Radiology Interpretation Free Text/Narrative:: [facility] Final Radiology Report Call: [phone] assistance Online chat: [email or web address] Name: KEARA SANCHES Age: 55Years F Date: 09/03/2020 SSN: -- : 1965 Study: CT CHEST W CONT Requesting Physician: Juana Perales Images: [id number] Addl Studies: Provided Clinical History: Rule out PE Contrast: With Contrast Medium: Isovue 370 Contrast Amount: 100 mL Contrast Method: Intravenous (IV) Page 1 of 2 PROCEDURE INFORMATION: Exam: CT Chest With Contrast Exam date and time: 09/03/2020 6:48 AM Age: 55 years old Clinical indication: Shortness of breath and other: D-dimer 1860; Additional info: Rule out pe TECHNIQUE: Imaging protocol: Computed tomography of the chest with intravenous contrast. Radiation optimization: All CT scans at this facility use at least one of these dose optimization techniques: automated exposure control; mA and/or kV adjustment per patient size (includes targeted exams where dose is matched to clinical indication); or iterative reconstruction. Contrast material: ISOVUE 370; Contrast volume: 100 ml; Contrast route: INTRAVENOUS (IV); COMPARISON: CR Chest 1V Frontal 09/03/2020 3:31 AM FINDINGS: Lungs: Scattered bilateral, primarily peripheral foci of ground-glass opacity in both lungs which could be due to viral/atypical pneumonia. Pleural space: No pleural effusion or pneumothorax. Heart: The heart is not enlarged. No pericardial effusion. There is coronary artery disease. Pulmonary arteries: No sign of pulmonary embolism. Aorta: No thoracic aortic aneurysm or dissection. Veins: There are large, serpiginous collateral veins in the perisplenic space indicating portal hypertension. Lymph nodes: No pathologically enlarged lymph nodes. Liver: The liver has a nodular margin compatible with cirrhosis. Bones/joints: There are multilevel bridging osteophytes in the spine. Soft tissues: No acute soft tissue abnormality. KEARA SANCHES | Final Radiology Report CONFIDENTIALITY STATEMENT This report is intended only for use by the referring physician, and only in accordance with law. If you received this in error, call [phone]. Page 2 of 2 IMPRESSION: 1. No pulmonary embolism. 2. Findings which could be due to viral/atypical pneumonia. 3. Coronary artery disease. 4. Cirrhosis. Portal hypertension. Thank you for allowing us to participate in the care of your patient. Dictated and Authenticated by: Nahun Mustafa MD 09/03/2020 8:33 AM Central Time ([place] & [place]) - Re-Assessments/Exams Free Text/Narrative Re-Assessment/Exam: 09/03/20 08:[address] Recording Artist [address] by Dr. Mustafa, radiologist regarding PE study. Scan unremarkable for PE, but shows strong evidence of COVID pneumonia. Discussed findings of CT with patient, including likelihood of COVID pneumonia. Will recheck Troponin to r/o cardiac involvement. Will check ammonia level prior to initiating steroid treatment. 09/03/20 09:46 Troponin trending down. Ammonia appropriate at 31. Will administer Decadron 6mg IVP and discharge with prescription for Decadrom 6mg PO x 10 days. Departure - Departure Time of Disposition: 09:47 Condition: Good Sepsis Event Note (ED) - Focused Exam Vital Signs: Vital Signs Temp Pulse Resp BP Pulse Ox 09/03/20 03:16 98 F 82 18 90/41 L 94 L"
[2020-09-03] MEDS ORDERED: Iopamidol 755 Mg/ML 100 ML Bottle IVPUSH ONE (05:48)
--- NOTE | 2020-09-03 08:33 | CT ---
PROCEDURE INFORMATION: Exam: CT Chest With Contrast Exam date and time: 09/03/2020 6:48 AM Age: 55 years old Clinical indication: Shortness of breath and other: D-dimer 1860; Additional info: Rule out pe TECHNIQUE: Imaging protocol: Computed tomography of the chest with intravenous contrast. Radiation optimization: All CT scans at this facility use at least one of these dose optimization techniques: automated exposure control; mA and/or kV adjustment per patient size (includes targeted exams where dose is matched to clinical indication); or iterative reconstruction. Contrast material: ISOVUE 370; Contrast volume: 100 ml; Contrast route: INTRAVENOUS (IV); COMPARISON: CR Chest 1V Frontal 09/03/2020 3:31 AM FINDINGS: Lungs: Scattered bilateral, primarily peripheral foci of ground-glass opacity in both lungs which could be due to viral/atypical pneumonia. Pleural space: No pleural effusion or pneumothorax. Heart: The heart is not enlarged. No pericardial effusion. There is coronary artery disease. Pulmonary arteries: No sign of pulmonary embolism. Aorta: No thoracic aortic aneurysm or dissection. Veins: There are large, serpiginous collateral veins in the perisplenic space indicating portal hypertension. Lymph nodes: No pathologically enlarged lymph nodes. Liver: The liver has a nodular margin compatible with cirrhosis. Bones/joints: There are multilevel bridging osteophytes in the spine. Soft tissues: No acute soft tissue abnormality. IMPRESSION: 1. No pulmonary embolism. 2. Findings which could be due to viral/atypical pneumonia. 3. Coronary artery disease. 4. Cirrhosis. Portal hypertension.
[2020-09-03] MEDS ORDERED: Dexamethasone 4 MG/ML SDV IVPUSH ONE (09:44)
== END 2020-09-03 10:03 | disposition home or self-care (01) ==
LOC: DL.ED 03:30
DX: U07.1 COVID-19 (principal); J12.89 Other viral pneumonia; I10 Essential (primary) hypertension; J43.9 Emphysema, unspecified; K21.9 Gastro-esophageal reflux disease without esophagitis; E03.9 Hypothyroidism, unspecified; E11.9 Type 2 diabetes mellitus without complications; E66.9 Obesity, unspecified; Z68.42 Body mass index [BMI] 45.0-49.9, adult; Z79.899 Other long term (current) drug therapy; Z79.4 Long term (current) use of insulin; Z88.6 Allergy status to analgesic agent; Z88.8 Allergy status to other drugs, medicaments and biological substances; Z88.1 Allergy status to other antibiotic agents; Z88.0 Allergy status to penicillin; Z88.2 Allergy status to sulfonamides
CPT/HCPCS: 36415; 71045; 71260; 80053; 82140; 83880; 84484; 85025; 85379; 85610; 86140; 87635; 93005; 96374; 99285; A9270; J1100; J2405; J7030; J7120; Q9967; 96375; U0002

== ENCOUNTER 2020-09-04 11:47 | Inpatient (IN) | payer MEDICAID ==
[2020-09-04 12:35] LABS: ANION GAP 15.8 mEq/L (7-13)
[2020-09-04] MEDS ORDERED: Insulin Regular, Human 100 Units/ML 3 ML Vial IV ONE (13:03)
[2020-09-04] MEDS ORDERED: 50% Dextrose in Water 50 ML Syringe IV ONE (13:05)
[2020-09-04] MEDS ORDERED: Lactulose Soln 10 GM/15 ML 30 ML UD Cup PO ONE (13:06)
--- NOTE | 2020-09-04 13:40 | EDM.PDOC ---
ED HPI GENERAL MEDICAL PROBLEM - General Chief Complaint: Neuro Symptoms/Deficits Stated Complaint: AMBULANCE Time Seen by Provider: 09/04/20 12:05 Source of Information: Reports: Patient, EMS, EMS Notes Reviewed, RN, RN Notes Reviewed History Limitations: Reports: No Limitations - History of Present Illness INITIAL COMMENTS - FREE TEXT/NARRATIVE: Patient presents to the ED via EMS at family's request due to confusion. The patient was seen in this facility yesterday 09/03/2020 for shortness of breath and and chest pain was subsequently diagnosed with COVID pneumonia; cardiac workup was unremarkable for acute processes. She was given Decadron 6mg IVP x1 and discharged home. She has a known history of liver failure; ammonia yesterday prior to the administration of Decadron was 61 - she was told to continue with her previously prescribed Lactulose. Today EMS was called to her home as family states she is acting confused, "...like when her ammonia is high." She denies headache, vision changes, chest pain, shortness of breath, or abdominal pain. She is unable to state if she has taken her lactulose in the past 24 hours. - Related Data Allergies Allergy/AdvReac Type Severity Reaction Status Date / Time aspirin Allergy Cannot Verified 08/08/20 11:25 Remember atorvastatin Allergy Cannot Verified 08/08/20 11:25 Remember cephalexin Allergy Fatigue Verified 08/08/20 11:25 [From Panixine DisperDose] ciprofloxacin Allergy Diarrhea Verified 08/08/20 11:25 docusate [From Senna-S] Allergy Abdominal Verified 08/08/20 11:25 Pain levofloxacin Allergy Dizziness Verified 08/08/20 11:25 Penicillins Allergy Other Verified 08/08/20 11:25 senna [From Senna-S] Allergy Abdominal Verified 08/08/20 11:25 Pain sulfamethoxazole Allergy Shortness Verified 08/08/20 11:25 [From Bactrim] of Breath trimethoprim [From Bactrim] Allergy Shortness Verified 08/08/20 11:25 of Breath another antibiotic Allergy Cannot Uncoded 05/05/20 12:21 Remember Home Meds: Home Meds Albuterol [Proventil Neb Soln] 2.5 mg NEB Q4H PRN 02/03/15 [History] Levothyroxine [Synthroid] 100 mcg PO DAILY 02/03/15 [History] Lisinopril 20 mg PO DAILY 02/03/15 [History] Magnesium Oxide 400 mg PO BID 02/03/15 [History] Insulin Glarg,Human.Rec.Analog [Lantus Solostar] 62 unit SUBCUT BID 03/06/15 [History] Fluticasone Furoate [Flonase Sensimist] 1 ml NS DAILY PRN 04/04/17 [History] Benzonatate 200 mg PO TID PRN 09/04/20 [History] Lactulose [Constulose] 60 ml PO QID 09/04/20 [History] Omeprazole 20 mg PO PCBREAKFAST 09/04/20 [History] Rifaximin [Xifaxan] 550 mg PO BID 09/04/20 [History] dexAMETHasone [Dexamethasone] 6 mg PO DAILY 09/04/20 [History] Past Medical History HEENT History: Reports: Impaired Vision Cardiovascular History: Reports: Hypertension Respiratory History: Reports: Asthma, COPD, Other (See Below) Other Respiratory History: Empysema Gastrointestinal History: Reports: Cholelithiasis, Cirrhosis, GERD Genitourinary History: Reports: UTI, Recurrent STAVE BLOCK 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 History: Reports: Musculoskeletal History: Reports: Arthritis, Back Pain, Chronic Neurological History: Reports: None Psychiatric History: Reports: None Endocrine/Metabolic History: Reports: Diabetes, Type II, Hypothyroidism, IDDM, Obesity/BMI 30+ Hematologic History: Reports: None Immunologic History: Reports: None Oncologic (Cancer) History: Reports: None Dermatologic History: Reports: Other (See Below) Other Dermatologic History: skin thick and discolored to extremities - Infectious Disease History Infectious Disease History: Reports: None - Past Surgical History Head Surgeries/Procedures: Reports: None GI Surgical History: Reports: Cholecystectomy, Hernia Repair/Other Female Surgical History: Reports: Section Musculoskeletal Surgical History: Reports: Other (See Below) Other Musculoskeletal Surgeries/Procedures:: Emil in left leg. Femur bone with pins in knee Social & Family History - Family History Family Medical History: No Pertinent Family History - Tobacco Use Tobacco Use Status *Q: Unknown Ever Used Tobacco - Caffeine Use Caffeine Use: Reports: Coffee - Living Situation & Occupation Living situation: Reports: , with Family Occupation: Unemployed ED ROS GENERAL - Review of Systems Review Of Systems: Comprehensive ROS is negative, except as noted in HPI. ED EXAM, NEURO - Physical Exam Exam: See Below Exam Limited By: Altered Mental Status General Appearance: Lethargic, Mild Distress, Obese Eye Exam: Bilateral Eye: EOMI, Normal Inspection, PERRL, Other (Jaundiced sclera) Throat/Mouth: Normal Voice, No Airway Compromise, Other (Dry mucous membranes) Head Exam: Atraumatic, Normocephalic Neck: Normal Inspection, Supple, Non-Tender, Full Range of Motion Respiratory/Chest: No Respiratory Distress, Lungs Clear, Normal Breath Sounds, No Accessory Muscle Use, Chest Non-Tender Cardiovascular: Normal Peripheral Pulses, Regular Rate, Rhythm, No Gallop, No JVD, No Murmur, No Rub GI/Abdominal: Soft, Non-Tender, No Distention, No Mass, Pelvis Stable, Abnormal Bowel Sounds (Hypoactive) Neurological: Normal Dorsiflexion, Normal Plantar Flexion, Withdraws to Pain, Other (Oriented to self and place; Disoriented to time and situation) Extremities: Normal Inspection, Normal Range of Motion, Non-Tender, Normal Capillary Refill, Pedal Edema (Trace, bilaterally) Skin Exam: Warm, Dry, Intact, No Rash, Jaundice. No: Ecchymosis, Erythema, Mottled, Pallor Course - Vital Signs Last Recorded V/S: Last Vital Signs Temp 97.2 F 09/04/20 22:29 Pulse 73 09/04/20 22:29 Resp 20 09/04/20 22:29 BP 114/48 L 09/04/20 22:29 Pulse Ox 97 09/04/20 22:29 - Orders/Labs/Meds Orders: Medication Orders Acetaminophen (Tylenol) 650 mg PO Q6H PRN PRN Reason: Pain (Mild 1-3)/fever Albuterol (Proventil Hfa) 0 gm INH Q4HR PRN PRN Reason: Wheezing Dexamethasone (Dexamethasone) 6 mg PO DAILY [facility] Dextrose/Water (Dextrose 50% In Water) 50 ml IV ASDIRECTED PRN PRN Reason: Hypoglycemia Dextrose/Water (Dextrose 50% In Water) 25 ml IVPUSH Q1H PRN PRN Reason: blood sugar <70 Enoxaparin Sodium (Lovenox) 30 mg SUBCUT BID [facility] Last Admin: 09/04/20 22:07 Dose: 30 mg Documented by: PAULA Glucagon (Glucagen) 1 mg IM ASDIRECTED PRN PRN Reason: Hypoglycemia Sodium Chloride (Normal Saline) 1,000 mls @ 75 mls/hr IV ASDIRECTED [facility] Last Admin: 09/04/20 16:12 Dose: 75 mls/hr Documented by: DEENA Insulin Glargine (Lantus) 30 unit SUBCUT BEDTIME [facility] Last Admin: 09/04/20 22:17 Dose: 30 unit Documented by: PAULA Insulin Human Lispro (Humalog) 30 unit SUBCUT TIDMEALS [facility] Last Admin: 09/04/20 16:16 Dose: 30 units Documented by: DEENA Insulin Human Lispro (Humalog) 0 unit SUBCUT QIDACANDBED [facility]; Protocol Last Admin: 09/04/20 22:05 Dose: Not Given Documented by: Admin: 09/04/20 16:25 Dose: Not Given Documented by: DEENA Lactulose (Cephulac) 30 gm PO Q6H [facility] Levothyroxine Sodium (Synthroid) 100 mcg PO DAILY@0600 [facility] Magnesium Oxide (Magnesium Oxide) 500 mg PO BIDMEALS [facility] Omeprazole (Omeprazole) 20 mg PO BIDAC [facility] Last Admin: 09/04/20 16:13 Dose: 20 mg Documented by: DEENA Ondansetron HCl (Zofran Odt) 4 mg PO Q6H PRN PRN Reason: nausea, able to take PO Ondansetron HCl (Zofran) 4 mg IVPUSH Q4H PRN PRN Reason: Nausea/Vomiting Sodium Chloride (Saline Flush) 10 ml FLUSH ASDIRECTED PRN PRN Reason: Keep Vein Open Last Admin: 09/04/20 16:22 Dose: 10 ml Documented by: DEENA Tiotropium Jones (Spiriva Handihaler) 18 mcg INH DAILY [facility] Labs: Laboratory Tests 09/04/20 09/04/20 09/04/20 Range/Units 12:07 12:07 12:07 WBC 6.2 (5.0-10.0) 10^3/uL RBC 3.43 L (4.2-5.4) 10^6/uL Hgb 11.8 L (12.0-16.0) g/dL Hct 34.7 L (37.0-47.0) % MCV 101.2 H (80-100) fL MCH 34.4 H (27.0-34.0) pg MCHC 34.0 (33.0-35.0) g/dL Plt Count 95 L (150-450) 10^3/uL Neut % (Auto) 83.0 H (42.2-75.2) % Lymph % (Auto) 9.2 L (20.5-50.1) % Harlan % (Auto) 7.4 (2-8) % Eos % (Auto) 0.2 L (1.0-3.0) % Baso % (Auto) 0.2 (0.0-1.0) % Sodium 139 (136-145) mmol/L Potassium 5.8 H (3.5-5.1) mmol/L Chloride 112 H (98-107) mmol/L Carbon Dioxide 17 L (21-32) mmol/L Anion Gap 15.8 H (7-13) mEq/L BUN 27 H (7-18) mg/dL Creatinine 1.41 H (0.55-1.02) mg/dL Est Cr Clr Drug Dosing 38.01 mL/min Estimated GFR (MDRD) 38 BUN/Creatinine Ratio 19.1 (No establ ref range) Glucose 170 H (74-99) mg/dL Lactic Acid (0.4-2.0) mmol/L Calcium 8.3 L (8.5-10.1) mg/dL Total Bilirubin 2.0 H (0.2-1.0) mg/dL AST 696 H (15-37) U/L ALT 68 H (14-59) U/L Alkaline Phosphatase 378 H (46-116) U/L Ammonia 102 H (11-32) umol/L Total Protein 7.3 (6.4-8.2) g/dL Albumin 1.8 L (3.4-5.0) g/dL Globulin 5.5 Albumin/Globulin Ratio 0.33 Amylase 81 (25-115) U/L Lipase 302 (73-393) U/L 11//20 Range/Units 12:07 WBC (5.0-10.0) 10^3/uL RBC (4.2-5.4) 10^6/uL Hgb (12.0-16.0) g/dL Hct (37.0-47.0) % MCV (80-100) fL MCH (27.0-34.0) pg MCHC (33.0-35.0) g/dL Plt Count (150-450) 10^3/uL Neut % (Auto) (42.2-75.2) % Lymph % (Auto) (20.5-50.1) % Harlan % (Auto) (2-8) % Eos % (Auto) (1.0-3.0) % Baso % (Auto) (0.0-1.0) % Sodium (136-145) mmol/L Potassium (3.5-5.1) mmol/L Chloride (98-107) mmol/L Carbon Dioxide (21-32) mmol/L Anion Gap (7-13) mEq/L BUN (7-18) mg/dL Creatinine (0.55-1.02) mg/dL Est Cr Clr Drug Dosing mL/min Estimated GFR (MDRD) BUN/Creatinine Ratio (No establ ref range) Glucose (74-99) mg/dL Lactic Acid 1.8 (0.4-2.0) mmol/L Calcium (8.5-10.1) mg/dL Total Bilirubin (0.2-1.0) mg/dL AST (15-37) U/L ALT (14-59) U/L Alkaline Phosphatase (46-116) U/L Ammonia (11-32) umol/L Total Protein (6.4-8.2) g/dL Albumin (3.4-5.0) g/dL Globulin Albumin/Globulin Ratio Amylase (25-115) U/L Lipase (73-393) U/L Meds: Medications Generic Name Dose Route Start Last Admin Trade Name Freq PRN Reason Stop Dose Admin Acetaminophen 650 mg 09/04/20 15:18 Tylenol PO Q6H PRN Pain (Mild 1-3)/fever Albuterol 0 gm 09/04/20 14:56 Proventil Hfa INH Q4HR PRN Wheezing Dexamethasone 6 mg 09/05/20 09:00 Dexamethasone PO DAILY [facility] Dextrose/Water 50 ml 09/04/20 14:58 Dextrose 50% In Water IV ASDIRECTED PRN Hypoglycemia Dextrose/Water 25 ml 09/04/20 15:02 Dextrose 50% In Water IVPUSH Q1H PRN blood sugar <70 Enoxaparin Sodium 30 mg 09/04/20 21:00 09/04/20 22:07 Lovenox SUBCUT 30 mg BID [facility]AKIYA Administration Glucagon 1 mg 09/04/20 15:02 Glucagen IM ASDIRECTED PRN Hypoglycemia Sodium Chloride 1,000 mls @ 75 mls/hr 09/04/20 15:00 09/04/20 16:12 Normal Saline IV 75 mls/hr ASDIRECTED ZAKIYA Administration Insulin Glargine 30 unit 09/04/20 21:00 09/04/20 22:17 Lantus SUBCUT 30 unit BEDTIME [facility]IYA Administration Insulin Human Lispro 30 unit 09/04/20 17:00 09/04/20 16:16 Humalog SUBCUT 30 units TIDMEALS ZAKIYA Administration Insulin Human Lispro 0 unit 09/04/20 17:00 09/04/20 22:05 Humalog SUBCUT Not Given QIDACANDBED [facility] Protocol Lactulose 30 gm 09/05/20 06:00 Cephulac PO Q6H [facility]AKIYA Levothyroxine Sodium 100 mcg 09/05/20 06:00 Synthroid PO DAILY@0600 [facility] Magnesium Oxide 500 mg 09/05/20 08:00 Magnesium Oxide PO BIDMEALS [facility] Omeprazole 20 mg 09/04/20 16:00 09/04/20 16:13 Omeprazole PO 20 mg BIDAC [facility]YA Administration Ondansetron HCl 4 mg 09/04/20 15:18 Zofran Odt PO Q6H PRN nausea, able to take PO Ondansetron HCl 4 mg 09/04/20 15:18 Zofran IVPUSH Q4H PRN Nausea/Vomiting Sodium Chloride 10 ml 09/04/20 15:18 09/04/20 16:22 Saline Flush FLUSH 10 ml ASDIRECTED PRN Administration Keep Vein Open Tiotropium Jones 18 mcg 09/05/20 09:00 Spiriva Handihaler INH DAILY [facility] Discontinued Medications Generic Name Dose Route Start Last Admin Trade Name Freq PRN Reason Stop Dose Admin Dextrose/Water 50 ml 09/04/20 13:05 09/04/20 13:18 Dextrose 50% In Water IV 09/04/20 13:06 50 ml ONETIME ONE Administration Insulin Human Regular 10 unit 09/04/20 13:03 09/04/20 13:17 Humulin R IV 09/04/20 13:04 10 units ONETIME ONE Administration Lactulose 20 gm 09/04/20 13:06 09/04/20 13:18 Cephulac PO 09/04/20 13:07 20 gm ONETIME ONE Administration Lactulose 30 gm 09/04/20 16:00 09/04/20 22:09 Cephulac PO 30 gm Q6H ZAKIYA Administration Lorazepam 1 mg 09/05/20 01:25 09/05/20 02:06 Ativan PO 09/05/20 01:26 1 mg ONETIME ONE Administration Non-Formulary Medication 30 unit 09/04/20 21:00 Insulin Glarg,Human.Rec.Analog [Lantus Solostar] SUBCUT BEDTIME [facility]YA Non-Formulary Medication 400 mg 09/04/20 21:00 Magnesium Oxide [Magnesium Oxide] PO BID [facility] Sodium Polystyrene Sulfonate 15 gm 09/04/20 16:00 09/04/20 22:20 Kayexalate PO 09/04/20 22:01 15 gm Q6H ZAKIYA Administration - Re-Assessments/Exams Free Text/Narrative Re-Assessment/Exam: 09/04/20 Humalin 10 units at D50 administered for K of 5.8 Ammonia up to 103 from 61 yesterday. In consultation with Dr. Vieyra, will admit to inpatient for acute hepatic encephalopathy. Departure - Departure Time of Disposition: 13:00 Disposition: Admitted As Inpatient 64 Condition: Fair Clinical Impression: Acute hepatic encephalopathy - Discharge Information Sepsis Event Note (ED) - Evaluation Sepsis Screening Result: No Definite Risk
[2020-09-04] MEDS ORDERED: Albuterol 6.7 GM Inhaler INH PRN (14:56)
[2020-09-04] MEDS ORDERED: 50% Dextrose in Water 50 ML Syringe IV PRN ×2 (14:58→15:02)
[2020-09-04] MEDS ORDERED: Glucagon,Human Recombinant 1 MG Vial IM PRN ×2 (14:58→15:02)
[2020-09-04] MEDS ORDERED: Sodium Chloride 0.9% 1,000 ML IV SCH (15:00)
[2020-09-04] MEDS ORDERED: 50% Dextrose in Water 50 ML Syringe IVPUSH PRN (15:02)
[2020-09-04] MEDS ORDERED: Sodium Chloride 0.9% 10 ML Syringe FLUSH PRN (15:18)
[2020-09-04] MEDS ORDERED: Ondansetron 4 MG/2 ML SDV IVPUSH PRN (15:18)
[2020-09-04] MEDS ORDERED: Ondansetron 4 MG Tab.DIS PO PRN (15:18)
[2020-09-04] MEDS ORDERED: Acetaminophen 325 MG Tab PO PRN (15:18)
--- NOTE | 2020-09-04 15:18 | PCM.HP ---
H&P History of Present Illness - General Date of Service: 09/04/20 Admit Problem/Dx: Admission Diagnosis/Problem Admission Diagnosis/Problem Acute hepatic encephalopathy Source of Information: Family, Provider - History of Present Illness Initial Comments - Free Text/Narative: 55-year-old with a history of diabetes, hypertension, hepatitic failure due to cirrhosis. the patient was in the emergency room yesterday with the shortness of breath left-sided chest pain. CT showed diffuse groundglass pacification in the chest compatible with a viral, possible atypical pneumonia. The patient had no acute pneumonia symptoms. Was discharged on dexamethasone for a presumed covid 19 pneumonia The patient was brought back to the emergency room by family with increasing confusion. he is unable to give history. Not answering questions. she appears comfortable, in no pain. Does not appear short of breath. In the emergency room she was noted to have significantly increased ammonia level, hyperkalemia. Given insulin and dextrose. - Related Data Allergies/Adverse Reactions: Allergies Allergy/AdvReac Type Severity Reaction Status Date / Time aspirin Allergy Cannot Verified 08/08/20 11:25 Remember atorvastatin Allergy Cannot Verified 08/08/20 11:25 Remember cephalexin Allergy Fatigue Verified 08/08/20 11:25 [From Panixine DisperDose] ciprofloxacin Allergy Diarrhea Verified 08/08/20 11:25 docusate [From Senna-S] Allergy Abdominal Verified 08/08/20 11:25 Pain levofloxacin Allergy Dizziness Verified 08/08/20 11:25 Penicillins Allergy Other Verified 08/08/20 11:25 senna [From Senna-S] Allergy Abdominal Verified 08/08/20 11:25 Pain sulfamethoxazole Allergy Shortness Verified 08/08/20 11:25 [From Bactrim] of Breath trimethoprim [From Bactrim] Allergy Shortness Verified 08/08/20 11:25 of Breath another antibiotic Allergy Cannot Uncoded 05/05/20 12:21 Remember Home Medications: Home Meds Albuterol [Proventil Neb Soln] 2.5 mg NEB Q4H PRN 02/03/15 [History] Insulin Aspart [NovoLOG] 67 units SQ TID 02/03/15 [History] Levothyroxine [Synthroid] 100 mcg PO DAILY 02/03/15 [History] Lisinopril 20 mg PO DAILY 02/03/15 [History] Magnesium Oxide 400 mg PO BID 02/03/15 [History] Tiotropium [Spiriva Handihaler] 18 mcg INH DAILY 02/03/15 [History] Albuterol/Ipratropium [DuoNeb 3.0-0.5 MG/3 ML] 3 ml NEB Q6H PRN 03/06/15 [History] Insulin Glarg,Human.Rec.Analog [Lantus Solostar] 62 unit SUBCUT BID 03/06/15 [History] Fluticasone Furoate [Flonase Sensimist] 1 ml NS DAILY PRN 04/04/17 [History] Lactulose [Cephulac] 45 ml PO Q6H 06/22/17 [History] Benzonatate 200 mg PO TID PRN 09/04/20 [History] Pantoprazole [ProTONIX] 40 mg PO DAILY 09/04/20 [History] Rifaximin [Xifaxan] 550 mg PO BID 09/04/20 [History] dexAMETHasone [Dexamethasone] 6 mg PO DAILY 09/04/20 [History] Past Medical History HEENT History: Reports: Impaired Vision Cardiovascular History: Reports: Hypertension Respiratory History: Reports: Asthma, COPD, Other (See Below) Other Respiratory History: Empysema Gastrointestinal History: Reports: Cholelithiasis, Cirrhosis, GERD Genitourinary History: Reports: UTI, Recurrent [employer] History: Reports: Musculoskeletal History: Reports: Arthritis, Back Pain, Chronic Neurological History: Reports: None Psychiatric History: Reports: None Endocrine/Metabolic History: Reports: Diabetes, Type II, Hypothyroidism, IDDM, Obesity/BMI 30+ Hematologic History: Reports: None Immunologic History: Reports: None Oncologic (Cancer) History: Reports: None Dermatologic History: Reports: Other (See Below) Other Dermatologic History: skin thick and discolored to extremities - Infectious Disease History Infectious Disease History: Reports: None - Past Surgical History Head Surgeries/Procedures: Reports: None GI Surgical History: Reports: Cholecystectomy, Hernia Repair/Other Female Surgical History: Reports: Section Musculoskeletal Surgical History: Reports: Other (See Below) Other Musculoskeletal Surgeries/Procedures:: Emil in left leg. Femur bone with pins in knee Social & Family History - Family History Family Medical History: No Pertinent Family History - Tobacco Use Tobacco Use Status *Q: Unknown Ever Used Tobacco - Caffeine Use Caffeine Use: Reports: Coffee - Living Situation & Occupation Living situation: Reports: , with Family Occupation: Unemployed H&P Review of Systems - Review of Systems: Review Of Systems: Unable To Obtain Reason Not Obtained: patient is confused Exam - Exam Exam: See Below - Vital Signs Vital Signs: Last Vital Signs Temp 97.6 F 09/04/20 13:43 Pulse 83 09/04/20 13:43 Resp 20 09/04/20 13:43 BP 128/63 09/04/20 13:43 Pulse Ox 100 09/04/20 13:43 Weight: 280 lb 3.2 oz - Exam General: Alert. No: Oriented HEENT: EOMI Neck: Supple Lungs: Normal Respiratory Effort, Decreased Breath Sounds Cardiovascular: Regular Rate, Regular Rhythm GI/Abdominal Exam: Normal Bowel Sounds, Soft, Non-Tender, Other (morbidly obese) Extremities: Pedal Edema (trace bilateral) Neuro Extensive - Mental Status: Alert. No: Oriented x3 Neuro Extensive - Motor, Sensory, Reflexes: Other (moving all extremities, steady on her feet.). No: Tremor Psychiatric: Alert - Patient Data Lab Results Last 24 hrs: Laboratory Results - last 24 hr 09/04/20 09/04/20 09/04/20 Range/Units 12:07 12:07 12:07 WBC 6.2 (5.0-10.0) 10^3/uL RBC 3.43 L (4.2-5.4) 10^6/uL Hgb 11.8 L (12.0-16.0) g/dL Hct 34.7 L (37.0-47.0) % MCV 101.2 H (80-100) fL MCH 34.4 H (27.0-34.0) pg MCHC 34.0 (33.0-35.0) g/dL Plt Count 95 L (150-450) 10^3/uL Neut % (Auto) 83.0 H (42.2-75.2) % Lymph % (Auto) 9.2 L (20.5-50.1) % Rankin % (Auto) 7.4 (2-8) % Eos % (Auto) 0.2 L (1.0-3.0) % Baso % (Auto) 0.2 (0.0-1.0) % Sodium 139 (136-145) mmol/L Potassium 5.8 H (3.5-5.1) mmol/L Chloride 112 H (98-107) mmol/L Carbon Dioxide 17 L (21-32) mmol/L Anion Gap 15.8 H (7-13) mEq/L BUN 27 H (7-18) mg/dL Creatinine 1.41 H (0.55-1.02) mg/dL Est Cr Clr Drug Dosing 38.01 mL/min Estimated GFR (MDRD) 38 BUN/Creatinine Ratio 19.1 (No establ ref range) Glucose 170 H (74-99) mg/dL Lactic Acid (0.4-2.0) mmol/L Calcium 8.3 L (8.5-10.1) mg/dL Total Bilirubin 2.0 H (0.2-1.0) mg/dL AST 696 H (15-37) U/L ALT 68 H (14-59) U/L Alkaline Phosphatase 378 H (46-116) U/L Ammonia 102 H (11-32) umol/L Total Protein 7.3 (6.4-8.2) g/dL Albumin 1.8 L (3.4-5.0) g/dL Globulin 5.5 Albumin/Globulin Ratio 0.33 Amylase 81 (25-115) U/L Lipase 302 (73-393) U/L 09/04/20 Range/Units 12:07 WBC (5.0-10.0) 10^3/uL RBC (4.2-5.4) 10^6/uL Hgb (12.0-16.0) g/dL Hct (37.0-47.0) % MCV (80-100) fL MCH (27.0-34.0) pg MCHC (33.0-35.0) g/dL Plt Count (150-450) 10^3/uL Neut % (Auto) (42.2-75.2) % Lymph % (Auto) (20.5-50.1) % Rankin % (Auto) (2-8) % Eos % (Auto) (1.0-3.0) % Baso % (Auto) (0.0-1.0) % Sodium (136-145) mmol/L Potassium (3.5-5.1) mmol/L Chloride (98-107) mmol/L Carbon Dioxide (21-32) mmol/L Anion Gap (7-13) mEq/L BUN (7-18) mg/dL Creatinine (0.55-1.02) mg/dL Est Cr Clr Drug Dosing mL/min Estimated GFR (MDRD) BUN/Creatinine Ratio (No establ ref range) Glucose (74-99) mg/dL Lactic Acid 1.8 (0.4-2.0) mmol/L Calcium (8.5-10.1) mg/dL Total Bilirubin (0.2-1.0) mg/dL AST (15-37) U/L ALT (14-59) U/L Alkaline Phosphatase (46-116) U/L Ammonia (11-32) umol/L Total Protein (6.4-8.2) g/dL Albumin (3.4-5.0) g/dL Globulin Albumin/Globulin Ratio Amylase (25-115) U/L Lipase (73-393) U/L Result Diagrams: 09/04/20 12:07 09/04/20 12:07 - Problem List (1) Hyperkalemia SNOMED Code(s): 50076703 ICD Code: E87.5 - HYPERKALEMIA Status: Acute Current Visit: Yes (2) Diabetes SNOMED Code(s): 95997402 ICD Code: E11.9 - TYPE 2 DIABETES MELLITUS WITHOUT COMPLICATIONS Status: Acute Current Visit: Yes (3) Alcoholic hepatitis SNOMED Code(s): 546905337 ICD Code: K70.10 - ALCOHOLIC HEPATITIS WITHOUT ASCITES Status: Acute Current Visit: Yes (4) Hepatic encephalopathy SNOMED Code(s): 78346242 ICD Code: K72.90 - HEPATIC FAILURE, UNSPECIFIED WITHOUT COMA Status: Acute Current Visit: No Problem Details: secondary to constipation (5) Hyperglycemia SNOMED Code(s): 34444172 ICD Code: R73.9 - HYPERGLYCEMIA, UNSPECIFIED Status: Acute Current Visit: No (6) Pneumonia due to COVID-19 virus SNOMED Code(s): 499842555989797906 ICD Code: U07.1 - COVID-19; J12.89 - OTHER VIRAL PNEUMONIA Status: Acute Current Visit: No Problem List Initiated/Reviewed/Updated: Yes Orders Last 24hrs: Active Orders 24 hr Category Date Time Status Admission Diagnosis [ADT] Stat ADT 09/04/20 13:25 Ordered Admission Status [Patient Status] [ADT] Routine ADT 09/04/20 13:25 Active Glucose [Blood Glucose Check, Bedside] [RC] QIDACANDBED Care 09/04/20 14:50 Active Glucose [Blood Glucose Check, Bedside] [RC] QIDACANDBED Care 09/04/20 15:02 Active RT Post Treatment Assessment [RC] Click to Edit Care 09/04/20 14:56 Active RT Post Treatment Assessment [RC] Click to Edit Care 09/04/20 14:56 Active RT Pre-Treatment Assessment [RC] Click to Edit Care 09/04/20 14:56 Active RT Pre-Treatment Assessment [RC] Click to Edit Care 09/04/20 14:56 Active AMMONIA VENOUS [CHEM] AM Lab 09/05/20 05:11 Ordered BASIC METABOLIC PANEL,BMP [CHEM] AM Lab 09/05/20 05:15 Ordered BASIC METABOLIC PANEL,BMP [CHEM] Timed Lab 09/04/20 19:00 Ordered CBC WITH AUTO DIFF [HEME] AM Lab 09/05/20 05:15 Ordered CULTURE URINE [RM] Routine Lab 09/04/20 15:04 Ordered HEPATIC FUNCTION PANEL,HFP [CHEM] AM Lab 09/05/20 05:11 Ordered PROCALCITONIN [REF] AM Lab 09/05/20 05:11 Ordered UA W/MICROSCOPIC [URIN] Routine Lab 09/04/20 15:04 Ordered Albuterol [Proventil HFA] Med 09/04/20 14:56 Ordered DOSE gm INH Q4HR PRN Dextrose 50% in Water Med 09/04/20 15:02 Ordered 25 ml IVPUSH Q1H PRN Dextrose 50% in Water Med 09/04/20 14:58 Ordered 50 ml IV ASDIRECTED PRN Dextrose 50% in Water Med 09/04/20 15:02 Ordered 50 ml IV ASDIRECTED PRN Enoxaparin [Lovenox] Med 09/04/20 21:00 Ordered 30 mg SUBCUT BID Glucagon,Human Recombinant [GlucaGen] Med 09/04/20 14:58 Ordered 1 mg IM ASDIRECTED PRN Glucagon,Human Recombinant [GlucaGen] Med 09/04/20 15:02 Ordered 1 mg IM ASDIRECTED PRN Insulin Aspart [NovoLOG] Med 09/04/20 21:00 Ordered 30 units SQ TID Insulin Glarg,Human.Rec.Analog [LantUS] Med 09/04/20 21:00 Ordered 30 unit SUBCUT BEDTIME Insulin Lispro [HumaLOG] Med 09/04/20 16:00 Ordered See Protocol SUBCUT ACBED Lactulose [Cephulac] Med 09/04/20 15:00 Ordered 30 gm PO Q6H Levothyroxine [Synthroid] Med 09/05/20 09:00 Ordered 100 mcg PO DAILY Magnesium Oxide [Magnesium Oxide] Med 09/04/20 21:00 Ordered 400 mg PO BID Omeprazole Med 09/04/20 21:00 Ordered 20 mg PO BID Sodium Chloride 0.9% [Normal Saline] 1,000 ml Med 09/04/20 15:00 Ordered IV ASDIRECTED Sodium Polystyrene Sulfonate [Kayexalate] Med 09/04/20 15:00 Ordered 15 gm PO Q6H Tiotropium [Spiriva HandiHaler] Med 09/05/20 09:00 Ordered 18 mcg INH DAILY dexAMETHasone Med 09/05/20 09:00 Ordered 6 mg PO DAILY Medication Orders Albuterol (Proventil Hfa) gm INH Q4HR PRN PRN Reason: Wheezing Dexamethasone (Dexamethasone) 6 mg PO DAILY ZAKIYA Dextrose/Water (Dextrose 50% In Water) 50 ml IV ASDIRECTED PRN PRN Reason: Hypoglycemia Dextrose/Water (Dextrose 50% In Water) 25 ml IVPUSH Q1H PRN PRN Reason: blood sugar <70 Dextrose/Water (Dextrose 50% In Water) 50 ml IV ASDIRECTED PRN PRN Reason: Hypoglycemia Enoxaparin Sodium (Lovenox) 30 mg SUBCUT BID ZAKIYA Glucagon (Glucagen) 1 mg IM ASDIRECTED PRN PRN Reason: Hypoglycemia Glucagon (Glucagen) 1 mg IM ASDIRECTED PRN PRN Reason: Hypoglycemia Sodium Chloride (Normal Saline) 1,000 mls @ 75 mls/hr IV ASDIRECTED ZAKIYA Insulin Glargine (Lantus) 30 unit SUBCUT BEDTIME ZAKIYA Insulin Human Lispro (Humalog) 0 unit SUBCUT ACBED ZAKIYA; Protocol Lactulose (Cephulac) 30 gm PO Q6H ZAKIYA Levothyroxine Sodium (Synthroid) 100 mcg PO DAILY ZAKIYA Non-Formulary Medication (Insulin Aspart [Novolog]) 30 units SQ TID ZAKIYA Non-Formulary Medication (Magnesium Oxide [Magnesium Oxide]) 400 mg PO BID [facility] Omeprazole (Omeprazole) 20 mg PO BID [facility] Sodium Polystyrene Sulfonate (Kayexalate) 15 gm PO Q6H [facility] Stop: 09/04/20 21:01 Tiotropium [place] (Spiriva Handihaler) 18 mcg INH DAILY [facility] Assessment/Plan Comment:: Presented with confusion Noted to have hyperkalemia in the emergency room Acute hepatic encephalopathy Ammonia level elevated on admission We will treat with lactulose, rifaximin Will check urine analysis and culture Hyperkalemia Acute renal failure We will give gentle IV hydration Hold ARASH inhibitor Give Kayexalate Received insulin and dextrose in the emergency room Recheck electrolytes in 6 hours Diabetes Well cut back a little bit on Humalog Continue Lantus Well follow sugars Supplemental insulin and hypoglycemia treatment as needed Chronic hepatitis, likely alcoholic cirrhosis Monitor liver enzymes Abnormal chest x-ray Compatible with previous COVID pneumonia The patient tested negative For Covid on 03 September Will repeat testing tomorrow In the meantime respiratory isolation Steroids started with dexamethasone I will continue it since steroid might be beneficial for alcoholic epatitis as well Elevated d-dimer Likely secondary to previous Covid Well use Lovenox twice a day prophylaxis
[2020-09-04] MEDS: Sodium Polystyrene Sulfonate 15 GM/60 ML Susp 60 ML Bot PO SCH ×2 (16:05→22:20)
[2020-09-04] MEDS: Lactulose Soln 10 GM/15 ML 30 ML UD Cup PO SCH ×2 (16:08→22:09)
[2020-09-04] MEDS: Omeprazole 20 MG Cap.CR PO SCH (16:13)
[2020-09-04] MEDS: Insulin Lispro 100 Units/ML 3 ML Vial SUBCUT SCH ×3 (16:16→22:05)
[2020-09-04 19:50] LABS: ANION GAP 19.4 mEq/L (7-13)
[2020-09-04] MEDS ORDERED: Non-Formulary Medication 1 Each (Magnesium Oxide [Magnesium Oxide] 400 MG) PO SCH (21:00)
[2020-09-04] MEDS ORDERED: [UNRECOGNIZED DRUG - OTHER] SUBCUT SCH (21:00)
[2020-09-04] MEDS ORDERED: INSULIN GLARG HUMAN REC ANALOG 30 UNIT SUBCUT SCH (21:00)
[2020-09-04] MEDS: Enoxaparin 30 MG/0.3 ML Syringe SUBCUT SCH (22:07)
[2020-09-04] MEDS: Insulin Glarg,Human.Rec.Analog 100 Unit/ML SUBCUT SCH (22:17)
[2020-09-05] MEDS ORDERED: LORazepam 1 MG Tab PO ONE (01:25)
[2020-09-05] MEDS: Levothyroxine 100 MCG Tab PO SCH (07:38)
[2020-09-05] MEDS: Lactulose Soln 10 GM/15 ML 30 ML UD Cup PO SCH ×3 (07:38→18:49)
[2020-09-05] MEDS: Omeprazole 20 MG Cap.CR PO SCH ×2 (07:38→18:48)
[2020-09-05 08:31] LABS: ANION GAP 17.9 mEq/L (7-13)
[2020-09-05] MEDS: Dexamethasone 4 MG Tab PO SCH (09:20)
[2020-09-05] MEDS: Insulin Lispro 100 Units/ML 3 ML Vial SUBCUT SCH ×8 (09:21→21:45)
[2020-09-05] MEDS: Tiotropium Inhaler 18 MCG Inhalation Powder Cap Kit of 5 INH SCH (09:29)
[2020-09-05] MEDS: Enoxaparin 30 MG/0.3 ML Syringe SUBCUT SCH ×2 (12:21→21:39)
--- NOTE | 2020-09-05 12:22 | PCM.PN ---
- General Info Date of Service: 09/05/20 Admission Dx/Problem (Free Text): Admission Diagnosis/Problem Admission Diagnosis/Problem Acute hepatic encephalopathy Subjective Update: 55-year-old with a history of hepatic encephalopathy. Presented with confusion. overnight the patient continued to be confused, somewhat restless Received Ativan. This morning the patient is minimally communicative. Does not offer complaints. Denies when asking about pain, shortness of breath. - Patient Data Vitals - Most Recent: Last Vital Signs Temp 97.2 F 09/04/20 22:29 Pulse 73 09/04/20 22:29 Resp 20 09/04/20 22:29 BP 114/48 L 09/04/20 22:29 Pulse Ox 97 09/04/20 22:29 Weight - Most Recent: 280 lb 3.2 oz I&O - Last 24 Hours: Intake & Output 09/04/20 09/05/20 09/05/20 22:59 06:59 14:59 Intake Total 630 Balance 630 Lab Results Last 24 Hours: Laboratory Results - last 24 hr 09/04/20 09/04/20 09/04/20 Range/Units 12:07 12:07 12:07 WBC (5.0-10.0) 10^3/uL RBC (4.2-5.4) 10^6/uL Hgb (12.0-16.0) g/dL Hct (37.0-47.0) % MCV (80-100) fL MCH (27.0-34.0) pg MCHC (33.0-35.0) g/dL Plt Count (150-450) 10^3/uL Neut % (Auto) (42.2-75.2) % Lymph % (Auto) (20.5-50.1) % Republic % (Auto) (2-8) % Eos % (Auto) (1.0-3.0) % Baso % (Auto) (0.0-1.0) % Sodium 139 (136-145) mmol/L Potassium 5.8 H (3.5-5.1) mmol/L Chloride 112 H (98-107) mmol/L Carbon Dioxide 17 L (21-32) mmol/L Anion Gap 15.8 H (7-13) mEq/L BUN 27 H (7-18) mg/dL Creatinine 1.41 H (0.55-1.02) mg/dL Est Cr Clr Drug Dosing 38.01 mL/min Estimated GFR (MDRD) 38 BUN/Creatinine Ratio 19.1 (No establ ref range) Glucose 170 H (74-99) mg/dL POC Glucose (70-105) mg/dl Lactic Acid 1.8 (0.4-2.0) mmol/L Calcium 8.3 L (8.5-10.1) mg/dL Total Bilirubin 2.0 H (0.2-1.0) mg/dL Direct Bilirubin (0.0-0.2) mg/dL Indirect Bilirubin AST 696 H (15-37) U/L ALT 68 H (14-59) U/L Alkaline Phosphatase 378 H (46-116) U/L Ammonia 102 H (11-32) umol/L Total Protein 7.3 (6.4-8.2) g/dL Albumin 1.8 L (3.4-5.0) g/dL Globulin 5.5 Albumin/Globulin Ratio 0.33 Amylase 81 (25-115) U/L Lipase 302 (73-393) U/L Urine Color (YELLOW) Urine Appearance (CLEAR) Urine pH (5.0-9.0) Ur Specific [place] (1.005-1.030) Urine Protein (NEGATIVE) Urine Glucose (UA) (NEGATIVE) Urine Ketones (NEGATIVE) Urine Occult Blood (NEGATIVE) Urine Nitrite (NEGATIVE) Urine Bilirubin (NEGATIVE) Urine Urobilinogen (0.2-1.0) mg/dL Ur Leukocyte Esterase (NEGATIVE) U Hyaline Cast (Auto) Urine RBC /HPF Urine WBC (0-5/HPF) /HPF Ur Epithelial Cells (NOT SEEN) /HPF Amorphous Sediment (NOT SEEN) /HPF Urine Bacteria (0-FEW/HPF) /HPF Fine Granular Casts (NOT SEEN) /LPF Urine Mucus (NOT SEEN) /LPF 09/04/20 09/04/20 09/04/20 Range/Units 16:04 17:30 19:30 WBC (5.0-10.0) 10^3/uL RBC (4.2-5.4) 10^6/uL Hgb (12.0-16.0) g/dL Hct (37.0-47.0) % MCV (80-100) fL MCH (27.0-34.0) pg MCHC (33.0-35.0) g/dL Plt Count (150-450) 10^3/uL Neut % (Auto) (42.2-75.2) % Lymph % (Auto) (20.5-50.1) % Republic % (Auto) (2-8) % Eos % (Auto) (1.0-3.0) % Baso % (Auto) (0.0-1.0) % Sodium 140 (136-145) mmol/L Potassium 6.4 H (3.5-5.1) mmol/L Chloride 112 H (98-107) mmol/L Carbon Dioxide 15 L (21-32) mmol/L Anion Gap 19.4 H (7-13) mEq/L BUN 30 H (7-18) mg/dL Creatinine 1.64 H (0.55-1.02) mg/dL Est Cr Clr Drug Dosing 32.68 mL/min Estimated GFR (MDRD) 32 BUN/Creatinine Ratio (No establ ref range) Glucose 177 H (74-99) mg/dL POC Glucose 142 H (70-105) mg/dl Lactic Acid (0.4-2.0) mmol/L Calcium 8.1 L (8.5-10.1) mg/dL Total Bilirubin (0.2-1.0) mg/dL Direct Bilirubin (0.0-0.2) mg/dL Indirect Bilirubin AST (15-37) U/L ALT (14-59) U/L Alkaline Phosphatase (46-116) U/L Ammonia (11-32) umol/L Total Protein (6.4-8.2) g/dL Albumin (3.4-5.0) g/dL Globulin Albumin/Globulin Ratio Amylase (25-115) U/L Lipase (73-393) U/L Urine Color Dark yellow (YELLOW) Urine Appearance Slightly cloudy (CLEAR) Urine pH 6.0 (5.0-9.0) Ur Specific [place] 1.025 (1.005-1.030) Urine Protein Negative (NEGATIVE) Urine Glucose (UA) Negative (NEGATIVE) Urine Ketones Negative (NEGATIVE) Urine Occult Blood Negative (NEGATIVE) Urine Nitrite Negative (NEGATIVE) Urine Bilirubin Negative (NEGATIVE) Urine Urobilinogen 0.2 (0.2-1.0) mg/dL Ur Leukocyte Esterase Negative (NEGATIVE) U Hyaline Cast (Auto) Few Urine RBC 0-5 /HPF Urine WBC 0-5 (0-5/HPF) /HPF Ur Epithelial Cells Few (NOT SEEN) /HPF Amorphous Sediment Moderate H (NOT SEEN) /HPF Urine Bacteria Few (0-FEW/HPF) /HPF Fine Granular Casts Few H (NOT SEEN) /LPF Urine Mucus Moderate H (NOT SEEN) /LPF 09/04/20 09/05/20 09/05/20 Range/Units 22:03 08:04 08:04 WBC 6.7 (5.0-10.0) 10^3/uL RBC 3.36 L (4.2-5.4) 10^6/uL Hgb 11.5 L (12.0-16.0) g/dL Hct 34.3 L (37.0-47.0) % MCV 102.1 H (80-100) fL MCH 34.2 H (27.0-34.0) pg MCHC 33.5 (33.0-35.0) g/dL Plt Count 92 L (150-450) 10^3/uL Neut % (Auto) 73.7 (42.2-75.2) % Lymph % (Auto) 12.9 L (20.5-50.1) % Republic % (Auto) 11.3 H (2-8) % Eos % (Auto) 1.8 (1.0-3.0) % Baso % (Auto) 0.3 (0.0-1.0) % Sodium 142 (136-145) mmol/L Potassium 4.9 D (3.5-5.1) mmol/L Chloride 113 H (98-107) mmol/L Carbon Dioxide 16 L (21-32) mmol/L Anion Gap 17.9 H (7-13) mEq/L BUN 31 H (7-18) mg/dL Creatinine 1.62 H (0.55-1.02) mg/dL Est Cr Clr Drug Dosing 33.09 mL/min Estimated GFR (MDRD) 33 BUN/Creatinine Ratio (No establ ref range) Glucose 123 H (74-99) mg/dL POC Glucose 81 (70-105) mg/dl Lactic Acid (0.4-2.0) mmol/L Calcium 8.2 L (8.5-10.1) mg/dL Total Bilirubin 2.4 H (0.2-1.0) mg/dL Direct Bilirubin 1.6 H (0.0-0.2) mg/dL Indirect Bilirubin 0.8 AST 863 H (15-37) U/L ALT 79 H (14-59) U/L Alkaline Phosphatase 355 H (46-116) U/L Ammonia (11-32) umol/L Total Protein 7.2 (6.4-8.2) g/dL Albumin 1.8 L (3.4-5.0) g/dL Globulin 5.4 Albumin/Globulin Ratio 0.33 Amylase (25-115) U/L Lipase (73-393) U/L Urine Color (YELLOW) Urine Appearance (CLEAR) Urine pH (5.0-9.0) Ur Specific [place] (1.005-1.030) Urine Protein (NEGATIVE) Urine Glucose (UA) (NEGATIVE) Urine Ketones (NEGATIVE) Urine Occult Blood (NEGATIVE) Urine Nitrite (NEGATIVE) Urine Bilirubin (NEGATIVE) Urine Urobilinogen (0.2-1.0) mg/dL Ur Leukocyte Esterase (NEGATIVE) U Hyaline Cast (Auto) Urine RBC /HPF Urine WBC (0-5/HPF) /HPF Ur Epithelial Cells (NOT SEEN) /HPF Amorphous Sediment (NOT SEEN) /HPF Urine Bacteria (0-FEW/HPF) /HPF Fine Granular Casts (NOT SEEN) /LPF Urine Mucus (NOT SEEN) /LPF 09/05/20 09/05/20 Range/Units 08:04 10:22 WBC (5.0-10.0) 10^3/uL RBC (4.2-5.4) 10^6/uL Hgb (12.0-16.0) g/dL Hct (37.0-47.0) % MCV (80-100) fL MCH (27.0-34.0) pg MCHC (33.0-35.0) g/dL Plt Count (150-450) 10^3/uL Neut % (Auto) (42.2-75.2) % Lymph % (Auto) (20.5-50.1) % Republic % (Auto) (2-8) % Eos % (Auto) (1.0-3.0) % Baso % (Auto) (0.0-1.0) % Sodium (136-145) mmol/L Potassium (3.5-5.1) mmol/L Chloride (98-107) mmol/L Carbon Dioxide (21-32) mmol/L Anion Gap (7-13) mEq/L BUN (7-18) mg/dL Creatinine (0.55-1.02) mg/dL Est Cr Clr Drug Dosing mL/min Estimated GFR (MDRD) BUN/Creatinine Ratio (No establ ref range) Glucose (74-99) mg/dL POC Glucose 225 H (70-105) mg/dl Lactic Acid (0.4-2.0) mmol/L Calcium (8.5-10.1) mg/dL Total Bilirubin (0.2-1.0) mg/dL Direct Bilirubin (0.0-0.2) mg/dL Indirect Bilirubin AST (15-37) U/L ALT (14-59) U/L Alkaline Phosphatase (46-116) U/L Ammonia 55 H (11-32) umol/L Total Protein (6.4-8.2) g/dL Albumin (3.4-5.0) g/dL Globulin Albumin/Globulin Ratio Amylase (25-115) U/L Lipase (73-393) U/L Urine Color (YELLOW) Urine Appearance (CLEAR) Urine pH (5.0-9.0) Ur Specific [place] (1.005-1.030) Urine Protein (NEGATIVE) Urine Glucose (UA) (NEGATIVE) Urine Ketones (NEGATIVE) Urine Occult Blood (NEGATIVE) Urine Nitrite (NEGATIVE) Urine Bilirubin (NEGATIVE) Urine Urobilinogen (0.2-1.0) mg/dL Ur Leukocyte Esterase (NEGATIVE) U Hyaline Cast (Auto) Urine RBC /HPF Urine WBC (0-5/HPF) /HPF Ur Epithelial Cells (NOT SEEN) /HPF Amorphous Sediment (NOT SEEN) /HPF Urine Bacteria (0-FEW/HPF) /HPF Fine Granular Casts (NOT SEEN) /LPF Urine Mucus (NOT SEEN) /LPF Med Orders - Current: Current Medications Acetaminophen (Tylenol) 650 mg PO Q6H PRN PRN Reason: Pain (Mild 1-3)/fever Albuterol (Proventil Hfa) 0 gm INH Q4HR PRN PRN Reason: Wheezing Dexamethasone (Dexamethasone) 6 mg PO DAILY ZAKIYA Last Admin: 09/05/20 09:20 Dose: 6 mg Documented by: Dextrose/Water (Dextrose 50% In Water) 50 ml IV ASDIRECTED PRN PRN Reason: Hypoglycemia Dextrose/Water (Dextrose 50% In Water) 25 ml IVPUSH Q1H PRN PRN Reason: blood sugar <70 Enoxaparin Sodium (Lovenox) 30 mg SUBCUT BID [facility] Last Admin: 09/04/20 22:07 Dose: 30 mg Documented by: Glucagon (Glucagen) 1 mg IM ASDIRECTED PRN PRN Reason: Hypoglycemia Insulin Glargine (Lantus) 30 unit SUBCUT BEDTIME [facility] Last Admin: 09/04/20 22:17 Dose: 30 unit Documented by: Insulin Human Lispro (Humalog) 30 unit SUBCUT TIDMEALS [facility] Last Admin: 09/05/20 09:21 Dose: 30 units Documented by: Insulin Human Lispro (Humalog) 0 unit SUBCUT QIDACANDBED [facility]; Protocol Last Admin: 09/05/20 10:45 Dose: 2 unit Documented by: Lactulose (Cephulac) 30 gm PO Q6H [facility] Last Admin: 09/05/20 07:38 Dose: 30 gm Documented by: Levothyroxine Sodium (Synthroid) 100 mcg PO DAILY@0600 [facility] Last Admin: 09/05/20 07:38 Dose: 100 mcg Documented by: Magnesium Oxide (Magnesium Oxide) 500 mg PO BIDMEALS [facility] Last Admin: 09/05/20 09:20 Dose: 500 mg Documented by: Omeprazole (Omeprazole) 20 mg PO BIDAC [facility] Last Admin: 09/05/20 07:38 Dose: 20 mg Documented by: Ondansetron HCl (Zofran Odt) 4 mg PO Q6H PRN PRN Reason: nausea, able to take PO Ondansetron HCl (Zofran) 4 mg IVPUSH Q4H PRN PRN Reason: Nausea/Vomiting Sodium Chloride (Saline Flush) 10 ml FLUSH ASDIRECTED PRN PRN Reason: Keep Vein Open Last Admin: 09/04/20 16:22 Dose: 10 ml Documented by: Tiotropium [place] (Spiriva Handihaler) 18 mcg INH DAILY [facility] Last Admin: 09/05/20 09:29 Dose: 18 mcg Documented by: Discontinued Medications Dextrose/Water (Dextrose 50% In Water) 50 ml IV ONETIME ONE Stop: 09/04/20 13:06 Last Admin: 09/04/20 13:18 Dose: 50 ml Documented by: Sodium Chloride (Normal Saline) 1,000 mls @ 75 mls/hr IV ASDIRECTED [facility] Last Admin: 09/04/20 16:12 Dose: 75 mls/hr Documented by: Insulin Human Regular (Humulin R) 10 unit IV ONETIME ONE Stop: 09/04/20 13:04 Last Admin: 09/04/20 13:17 Dose: 10 units Documented by: Lactulose (Cephulac) 20 gm PO ONETIME ONE Stop: 09/04/20 13:07 Last Admin: 09/04/20 13:18 Dose: 20 gm Documented by: Lactulose (Cephulac) 30 gm PO Q6H [facility] Last Admin: 09/04/20 22:09 Dose: 30 gm Documented by: Lorazepam (Ativan) 1 mg PO ONETIME ONE Stop: 09/05/20 01:26 Last Admin: 09/05/20 02:06 Dose: 1 mg Documented by: Non-Formulary Medication (Insulin Glarg,Human.Rec.Analog [Lantus Solostar]) 30 unit SUBCUT BEDTIME [facility] Non-Formulary Medication (Magnesium Oxide [Magnesium Oxide]) 400 mg PO BID [facility] Sodium Polystyrene Sulfonate (Kayexalate) 15 gm PO Q6H [facility] Stop: 09/04/20 22:01 Last Admin: 09/04/20 22:20 Dose: 15 gm Documented by: - Exam General: Alert. No: Oriented Lungs: Normal Respiratory Effort, Decreased Breath Sounds Cardiovascular: Regular Rate, Regular Rhythm GI/Abdominal Exam: Normal Bowel Sounds, Soft, Non-Tender, Other (morbidly obese) Extremities: Pedal Edema Neurological: No New Focal Deficit Psy/Mental Status: Alert, Other (withdrawn, non-engaging,) Sepsis Event Note - Evaluation Sepsis Screening Result: No Definite Risk - Problem List & Annotations (1) Hyperkalemia SNOMED Code(s): 46399426 Code(s): E87.5 - HYPERKALEMIA Status: Acute Current Visit: Yes (2) Diabetes SNOMED Code(s): 83308569 Code(s): E11.9 - TYPE 2 DIABETES MELLITUS WITHOUT COMPLICATIONS Status: Acute Current Visit: Yes (3) Alcoholic hepatitis SNOMED Code(s): 535757534 Code(s): K70.10 - ALCOHOLIC HEPATITIS WITHOUT ASCITES Status: Acute Current Visit: Yes (4) Hepatic encephalopathy SNOMED Code(s): 90728147 Code(s): K72.90 - HEPATIC FAILURE, UNSPECIFIED WITHOUT COMA Status: Acute Current Visit: No Annotation/Comment:: secondary to constipation (5) Hyperglycemia SNOMED Code(s): 31322443 Code(s): R73.9 - HYPERGLYCEMIA, UNSPECIFIED Status: Acute Current Visit: No (6) Pneumonia due to COVID-19 virus SNOMED Code(s): 570388460302205874 Code(s): U07.1 - COVID-19; J12.89 - OTHER VIRAL PNEUMONIA Status: Acute Current Visit: No - Problem List Review Problem List Initiated/Reviewed/Updated: Yes - My Orders Last 24 Hours: My Active Orders 09/04/20 14:56 RT Post Treatment Assessment [RC] Click to Edit RT Post Treatment Assessment [RC] Click to Edit RT Pre-Treatment Assessment [RC] Click to Edit RT Pre-Treatment Assessment [RC] Click to Edit Albuterol [Proventil HFA] 0 gm INH Q4HR PRN 09/04/20 14:58 Dextrose 50% in Water 50 ml IV ASDIRECTED PRN 09/04/20 15:02 Glucose [Blood Glucose Check, Bedside] [RC] QIDACANDBED Dextrose 50% in Water 25 ml IVPUSH Q1H PRN Glucagon,Human Recombinant [GlucaGen] 1 mg IM ASDIRECTED PRN 09/04/20 15:18 Oxygen Therapy [RC] PRN Peripheral IV Care [RC] Up With Assistance [RC] ASDIRECTED VTE/DVT Education [RC] PER UNIT ROUTINE Vital Signs [RC] Q4H Acetaminophen [TylenoL] 650 mg PO Q6H PRN Ondansetron [Zofran ODT] 4 mg PO Q6H PRN Ondansetron [Zofran] 4 mg IVPUSH Q4H PRN Sodium Chloride 0.9% [Saline Flush] 10 ml FLUSH ASDIRECTED PRN Peripheral IV Insertion Adult [OM.PC] Routine Resuscitation Status Routine 09/04/20 16:00 Omeprazole 20 mg PO BIDAC 09/04/20 17:00 Insulin Lispro [HumaLOG] 30 unit SUBCUT TIDMEALS Insulin Lispro [HumaLOG] See Protocol SUBCUT QIDACANDBED 09/04/20 Dinner Full Liquid Diet [DIET] 09/04/20 17:30 CULTURE URINE [RM] Routine 09/04/20 21:00 Enoxaparin [Lovenox] 30 mg SUBCUT BID Insulin Glarg,Human.Rec.Analog [LantUS] 30 unit SUBCUT BEDTIME 09/05/20 06:00 Lactulose [Cephulac] 30 gm PO Q6H Levothyroxine [Synthroid] 100 mcg PO DAILY@0600 09/05/20 08:00 Magnesium Oxide 500 mg PO BIDMEALS 09/05/20 08:04 PROCALCITONIN [REF] AM 09/05/20 09:00 Tiotropium [Spiriva HandiHaler] 18 mcg INH DAILY dexAMETHasone 6 mg PO DAILY 09/05/20 12:17 CORONAVIRUS COVID-19 BONITA [MOLEC] Routine 09/06/20 05:11 AMMONIA VENOUS [CHEM] AM HEPATIC FUNCTION PANEL,HFP [CHEM] AM 09/06/20 05:15 BASIC METABOLIC PANEL,BMP [CHEM] AM CBC WITH AUTO DIFF [HEME] AM - Plan Plan:: Presented with confusion Noted to have hyperkalemia in the emergency room Acute hepatic encephalopathy Ammonia level elevated on admission treat with lactulose, rifaximin improved urine analysis looked negative for infection Hyperkalemia Acute renal failure hyperkalemia improved Hold ARASH inhibitor Givea repeat dose of Kayexalate stop IV fluids Diabetes Well cut back a little bit on Humalog Continue Lantus Well follow sugars Supplemental insulin and hypoglycemia treatment as needed Chronic hepatitis, likely alcoholic cirrhosis Monitor liver enzymes Abnormal chest x-ray Compatible with previous COVID pneumonia - unknown time of exposure or infection The patient tested negative For Covid on 03 September Will repeat testing today In the meantime respiratory isolation Steroids started with dexamethasone I will continue it since steroid might be beneficial for alcoholic hepatitis as well Elevated d-dimer Likely secondary to previous Covid Well use Lovenox twice a day prophylaxis
[2020-09-05] MEDS ORDERED: Sodium Polystyrene Sulfonate 15 GM/60 ML Susp 60 ML Bot PO ONE (12:23)
[2020-09-05] MEDS ORDERED: Melatonin 3 MG Tab PO PRN (19:23)
[2020-09-05] MEDS: Rifaximin 550 MG Tab PO SCH (21:40)
[2020-09-05] MEDS ORDERED: LORazepam 1 MG Tab PO PRN (21:41)
[2020-09-05] MEDS: Insulin Glarg,Human.Rec.Analog 100 Unit/ML SUBCUT SCH (21:43)
[2020-09-06] MEDS: Lactulose Soln 10 GM/15 ML 30 ML UD Cup PO SCH ×3 (05:51→12:42)
[2020-09-06] MEDS: Omeprazole 20 MG Cap.CR PO SCH (05:52)
[2020-09-06] MEDS: Levothyroxine 100 MCG Tab PO SCH (05:52)
[2020-09-06] MEDS: Insulin Lispro 100 Units/ML 3 ML Vial SUBCUT SCH ×4 (08:06→12:41)
[2020-09-06] MEDS: Enoxaparin 30 MG/0.3 ML Syringe SUBCUT SCH (08:36)
[2020-09-06] MEDS: Tiotropium Inhaler 18 MCG Inhalation Powder Cap Kit of 5 INH SCH (08:36)
[2020-09-06] MEDS: Dexamethasone 4 MG Tab PO SCH (08:36)
[2020-09-06] MEDS: Rifaximin 550 MG Tab PO SCH (08:36)
[2020-09-06 09:52] LABS: ANION GAP 17.8 mEq/L (7-13)
--- NOTE | 2020-09-06 12:51 | PCM.DCSUM1 ---
Discharge Summary - Hospital Course Free Text/Narrative:: Presented with confusion Noted to have hyperkalemia and elevated ammonia level in the emergency room Acute hepatic encephalopathy Ammonia level elevated on admission treated with lactulose, rifaximin ental status normalized improved Hyperkalemia Acute renal failure resolved Hold ARASH inhibitor Gave repeated dose of Kayexalate Diabetes continue homeregimen with Lantus Chronic hepatitis, likely alcoholic cirrhosis stable Abnormal chest x-ray Compatible with previous COVID pneumonia The patient tested negative For Covid on 03 September tested negative on 05 September as well Elevated d-dimer Likely secondary to previous Covid continue aspirin prophylaxis for 4 more weeks. Diagnosis: Stroke: No - Discharge Data Discharge Date: 09/06/20 Discharge Disposition: Home, Self-Care 01 Condition: Stable - Referral to Home Health Primary Care Physician: PCP None - Discharge Diagnosis/Problem(s) (1) Hyperkalemia SNOMED Code(s): 16768671 ICD Code: E87.5 - HYPERKALEMIA Status: Acute Current Visit: Yes (2) Diabetes SNOMED Code(s): 88328960 ICD Code: E11.9 - TYPE 2 DIABETES MELLITUS WITHOUT COMPLICATIONS Status: Acute Current Visit: Yes (3) Alcoholic hepatitis SNOMED Code(s): 134783235 ICD Code: K70.10 - ALCOHOLIC HEPATITIS WITHOUT ASCITES Status: Acute Current Visit: Yes (4) Hepatic encephalopathy SNOMED Code(s): 93650797 ICD Code: K72.90 - HEPATIC FAILURE, UNSPECIFIED WITHOUT COMA Status: Acute Current Visit: No Problem Details: secondary to constipation (5) Hyperglycemia SNOMED Code(s): 26282851 ICD Code: R73.9 - HYPERGLYCEMIA, UNSPECIFIED Status: Acute Current Visit: No (6) Pneumonia due to COVID-19 virus SNOMED Code(s): 736237587088459803 ICD Code: U07.1 - COVID-19; J12.89 - OTHER VIRAL PNEUMONIA Status: Acute Current Visit: No - Patient Instructions Diet: Heart Healthy Diet Activity: As Tolerated - Discharge Plan *PRESCRIPTION DRUG MONITORING PROGRAM REVIEWED*: Not Applicable *COPY OF PRESCRIPTION DRUG MONITORING REPORT IN PATIENT RAY: Not Applicable Prescriptions/Med Rec: Aspirin 325 mg PO DAILY #28 tablet Home Medications: Home Meds Albuterol [Proventil Neb Soln] 2.5 mg NEB Q4H PRN 04/11/15 [History] Levothyroxine [Synthroid] 100 mcg PO DAILY 02/03/15 [History] Magnesium Oxide 400 mg PO BID 02/03/15 [History] Insulin Glarg,Human.Rec.Analog [Lantus Solostar] 62 unit SUBCUT BID 03/06/15 [History] Fluticasone Furoate [Flonase Sensimist] 1 ml NS DAILY PRN 04/04/17 [History] Benzonatate 200 mg PO TID PRN 09/04/20 [History] Lactulose [Constulose] 60 ml PO QID 09/04/20 [History] Omeprazole 20 mg PO PCBREAKFAST 09/04/20 [History] Rifaximin [Xifaxan] 550 mg PO BID 09/04/20 [History] Aspirin 325 mg PO DAILY #28 tablet 09/06/20 [Rx] Oxygen Therapy Mode: Room Air Patient Handouts: Hepatic Encephalopathy Referrals: Michael Bradford MD [Physician] - - Discharge Summary/Plan Comment DC Time >30 min.: No - General Info Date of Service: 09/06/20 Admission Dx/Problem (Free Text: Admission Diagnosis/Problem Admission Diagnosis/Problem Acute hepatic encephalopathy Subjective Update: 55-year-old with a history of hepatic encephalopathy. Presented with confusion. confusion has practically resolved is at bedside Patient is alert, oriented to person, age, place Answering questions appropriately - Review of Systems General: Reports: Weakness. Denies: Fever Pulmonary: Denies: Shortness of Breath Cardiovascular: Denies: Chest Pain, Edema Gastrointestinal: Denies: Abdominal Pain Neurological: Denies: Confusion - Patient Data Vitals - Most Recent: Last Vital Signs Temp 96.8 F L 09/06/20 07:00 Pulse 64 09/06/20 07:00 Resp 24 H 09/06/20 07:00 BP 106/35 L 09/06/20 07:00 Pulse Ox 97 09/05/20 19:00 Weight - Most Recent: 280 lb 3.2 oz I&O - Last 24 hours: Intake & Output 09/05/20 09/06/20 09/06/20 22:59 06:59 14:59 Intake Total 660 240 Balance 660 240 Lab Results - Last 24 hrs: Laboratory Results - last 24 hr 09/05/20 09/05/20 09/05/20 Range/Units 08:04 12:16 16:48 WBC (5.0-10.0) 10^3/uL RBC (4.2-5.4) 10^6/uL Hgb (12.0-16.0) g/dL Hct (37.0-47.0) % MCV (80-100) fL MCH (27.0-34.0) pg MCHC (33.0-35.0) g/dL Plt Count (150-450) 10^3/uL Neut % (Auto) (42.2-75.2) % Lymph % (Auto) (20.5-50.1) % Citrus % (Auto) (2-8) % Eos % (Auto) (1.0-3.0) % Baso % (Auto) (0.0-1.0) % Sodium (136-145) mmol/L Potassium (3.5-5.1) mmol/L Chloride (98-107) mmol/L Carbon Dioxide (21-32) mmol/L Anion Gap (7-13) mEq/L BUN (7-18) mg/dL Creatinine (0.55-1.02) mg/dL Est Cr Clr Drug Dosing mL/min Estimated GFR (MDRD) Glucose (74-99) mg/dL POC Glucose 122 H (70-105) mg/dl Calcium (8.5-10.1) mg/dL Total Bilirubin (0.2-1.0) mg/dL Direct Bilirubin (0.0-0.2) mg/dL Indirect Bilirubin AST (15-37) U/L ALT (14-59) U/L Alkaline Phosphatase (46-116) U/L Ammonia (11-32) umol/L Total Protein (6.4-8.2) g/dL Albumin (3.4-5.0) g/dL Globulin Albumin/Globulin Ratio Procalcitonin 0.36 H (<0.10) ng/mL SARS CoV-2 RNA Rapid BONITA Negative (NEGATIVE) 09/05/20 09/06/20 09/06/20 Range/Units 20:59 08:04 09:03 WBC (5.0-10.0) 10^3/uL RBC (4.2-5.4) 10^6/uL Hgb (12.0-16.0) g/dL Hct (37.0-47.0) % MCV (80-100) fL MCH (27.0-34.0) pg MCHC (33.0-35.0) g/dL Plt Count (150-450) 10^3/uL Neut % (Auto) (42.2-75.2) % Lymph % (Auto) (20.5-50.1) % Citrus % (Auto) (2-8) % Eos % (Auto) (1.0-3.0) % Baso % (Auto) (0.0-1.0) % Sodium 137 (136-145) mmol/L Potassium 4.8 (3.5-5.1) mmol/L Chloride 107 (98-107) mmol/L Carbon Dioxide 17 L (21-32) mmol/L Anion Gap 17.8 H (7-13) mEq/L BUN 33 H (7-18) mg/dL Creatinine 1.61 H (0.55-1.02) mg/dL Est Cr Clr Drug Dosing 33.29 mL/min Estimated GFR (MDRD) 33 Glucose 219 H (74-99) mg/dL POC Glucose 110 H 146 H (70-105) mg/dl Calcium 8.3 L (8.5-10.1) mg/dL Total Bilirubin 2.3 H (0.2-1.0) mg/dL Direct Bilirubin 1.6 H (0.0-0.2) mg/dL Indirect Bilirubin 0.7 AST 693 H (15-37) U/L ALT 87 H (14-59) U/L Alkaline Phosphatase 364 H (46-116) U/L Ammonia (11-32) umol/L Total Protein 6.9 (6.4-8.2) g/dL Albumin 1.8 L (3.4-5.0) g/dL Globulin 5.1 Albumin/Globulin Ratio 0.35 Procalcitonin (<0.10) ng/mL SARS CoV-2 RNA Rapid BONITA (NEGATIVE) 09/06/20 09/06/20 09/06/20 Range/Units 09:03 09:03 11:43 WBC 5.2 (5.0-10.0) 10^3/uL RBC 3.34 L (4.2-5.4) 10^6/uL Hgb 11.5 L (12.0-16.0) g/dL Hct 33.9 L (37.0-47.0) % MCV 101.5 H (80-100) fL MCH 34.4 H (27.0-34.0) pg MCHC 33.9 (33.0-35.0) g/dL Plt Count 87 L (150-450) 10^3/uL Neut % (Auto) 81.6 H (42.2-75.2) % Lymph % (Auto) 11.3 L (20.5-50.1) % Citrus % (Auto) 6.9 (2-8) % Eos % (Auto) 0.0 L (1.0-3.0) % Baso % (Auto) 0.2 (0.0-1.0) % Sodium (136-145) mmol/L Potassium (3.5-5.1) mmol/L Chloride (98-107) mmol/L Carbon Dioxide (21-32) mmol/L Anion Gap (7-13) mEq/L BUN (7-18) mg/dL Creatinine (0.55-1.02) mg/dL Est Cr Clr Drug Dosing mL/min Estimated GFR (MDRD) Glucose (74-99) mg/dL POC Glucose 228 H (70-105) mg/dl Calcium (8.5-10.1) mg/dL Total Bilirubin (0.2-1.0) mg/dL Direct Bilirubin (0.0-0.2) mg/dL Indirect Bilirubin AST (15-37) U/L ALT (14-59) U/L Alkaline Phosphatase (46-116) U/L Ammonia 55 H (11-32) umol/L Total Protein (6.4-8.2) g/dL Albumin (3.4-5.0) g/dL Globulin Albumin/Globulin Ratio Procalcitonin (<0.10) ng/mL SARS CoV-2 RNA Rapid BONITA (NEGATIVE) HALIE Results - Last 24 hrs: Microbiology 09/04/20 17:30 Urine Culture - Final Urine, Clean Catch MIXED LIBERTAD SUGGESTIVE OF CONTAMINATION. Med Orders - Current: Current Medications Acetaminophen (Tylenol) 650 mg PO Q6H PRN PRN Reason: Pain (Mild 1-3)/fever Albuterol (Proventil Hfa) 0 gm INH Q4HR PRN PRN Reason: Wheezing Dexamethasone (Dexamethasone) 6 mg PO DAILY [facility] Last Admin: 09/06/20 08:36 Dose: 6 mg Documented by: Dextrose/Water (Dextrose 50% In Water) 50 ml IV ASDIRECTED PRN PRN Reason: Hypoglycemia Dextrose/Water (Dextrose 50% In Water) 25 ml IVPUSH Q1H PRN PRN Reason: blood sugar <70 Enoxaparin Sodium (Lovenox) 30 mg SUBCUT BID [facility] Last Admin: 09/06/20 08:36 Dose: 30 mg Documented by: Glucagon (Glucagen) 1 mg IM ASDIRECTED PRN PRN Reason: Hypoglycemia Insulin Glargine (Lantus) 30 unit SUBCUT BEDTIME [facility] Last Admin: 09/05/20 21:43 Dose: 30 unit Documented by: Insulin Human Lispro (Humalog) 30 unit SUBCUT TIDMEALS [facility] Last Admin: 09/06/20 12:40 Dose: 30 units Documented by: Insulin Human Lispro (Humalog) 0 unit SUBCUT QIDACANDBED [facility]; Protocol Last Admin: 09/06/20 12:41 Dose: 2 unit Documented by: Lactulose (Cephulac) 30 gm PO Q6H [facility] Last Admin: 09/06/20 12:42 Dose: 30 gm Documented by: Levothyroxine Sodium (Synthroid) 100 mcg PO DAILY@0600 [facility] Last Admin: 09/06/20 05:52 Dose: 100 mcg Documented by: Lorazepam (Ativan) 1 mg PO BEDTIME PRN PRN Reason: for sleep Last Admin: 09/05/20 22:03 Dose: 1 mg Documented by: Magnesium Oxide (Magnesium Oxide) 500 mg PO BIDMEALS [facility] Last Admin: 09/06/20 08:36 Dose: 500 mg Documented by: Melatonin (Melatonin) 3 mg PO BEDTIME PRN PRN Reason: Sleep Last Admin: 09/05/20 21:39 Dose: 3 mg Documented by: Omeprazole (Omeprazole) 20 mg PO BIDAC [facility] Last Admin: 09/06/20 05:52 Dose: 20 mg Documented by: Ondansetron HCl (Zofran Odt) 4 mg PO Q6H PRN PRN Reason: nausea, able to take PO Ondansetron HCl (Zofran) 4 mg IVPUSH Q4H PRN PRN Reason: Nausea/Vomiting Rifaximin (Xifaxan) 550 mg PO BID [facility] Last Admin: 09/06/20 08:36 Dose: 550 mg Documented by: Sodium Chloride (Saline Flush) 10 ml FLUSH ASDIRECTED PRN PRN Reason: Keep Vein Open Last Admin: 09/04/20 16:22 Dose: 10 ml Documented by: Tiotropium [place] (Spiriva Handihaler) 18 mcg INH DAILY [facility] Last Admin: 09/06/20 08:36 Dose: 18 mcg Documented by: Discontinued Medications Dextrose/Water (Dextrose 50% In Water) 50 ml IV ONETIME ONE Stop: 09/04/20 13:06 Last Admin: 09/04/20 13:18 Dose: 50 ml Documented by: Sodium Chloride (Normal Saline) 1,000 mls @ 75 mls/hr IV ASDIRECTED [facility] Last Admin: 09/04/20 16:12 Dose: 75 mls/hr Documented by: Insulin Human Regular (Humulin R) 10 unit IV ONETIME ONE Stop: 09/04/20 13:04 Last Admin: 09/04/20 13:17 Dose: 10 units Documented by: Lactulose (Cephulac) 20 gm PO ONETIME ONE Stop: 09/04/20 13:07 Last Admin: 09/04/20 13:18 Dose: 20 gm Documented by: Lactulose (Cephulac) 30 gm PO Q6H [facility] Last Admin: 09/04/20 22:09 Dose: 30 gm Documented by: Lorazepam (Ativan) 1 mg PO ONETIME ONE Stop: 09/05/20 01:26 Last Admin: 09/05/20 02:06 Dose: 1 mg Documented by: Non-Formulary Medication (Insulin Glarg,Human.Rec.Analog [Lantus Solostar]) 30 unit SUBCUT BEDTIME [facility] Non-Formulary Medication (Magnesium Oxide [Magnesium Oxide]) 400 mg PO BID [facility] Sodium Polystyrene Sulfonate (Kayexalate) 15 gm PO Q6H [facility] Stop: 09/04/20 22:01 Last Admin: 09/04/20 22:20 Dose: 15 gm Documented by: Sodium Polystyrene Sulfonate (Kayexalate) 15 gm PO ONETIME ONE Stop: 09/05/20 12:24 Last Admin: 09/05/20 13:02 Dose: 15 gm Documented by: - Exam Quality Assessment: Denies: Supplemental Oxygen General: Reports: Alert, Oriented Neck: Reports: Supple Lungs: Reports: Clear to Auscultation, Normal Respiratory Effort Cardiovascular: Reports: Regular Rate, Regular Rhythm GI/Abdominal Exam: Normal Bowel Sounds, Soft, Non-Tender Extremities: No Pedal Edema Skin: Reports: Warm, Dry Neurological: Reports: No New Focal Deficit Psy/Mental Status: Reports: Alert, Normal Affect, Normal Mood
[2020-09-06 12:52] VITALS: BP 107/47; PULSE 63
== END 2020-09-06 13:30 | disposition home or self-care (01) | DRG 442 ==
LOC: DL.ED 11:47 → DL.MS 13:25
PROVIDERS: ADMIT Internal Medicine; ATTEND Internal Medicine
DX: K72.90 Hepatic failure, unspecified without coma (principal); K72.00 Acute and subacute hepatic failure without coma; N17.9 Acute kidney failure, unspecified; J43.1 Panlobular emphysema; Z68.42 Body mass index [BMI] 45.0-49.9, adult; E87.5 Hyperkalemia; K73.9 Chronic hepatitis, unspecified; K70.30 Alcoholic cirrhosis of liver without ascites; R79.1 Abnormal coagulation profile; Z20.828 Contact with and (suspected) exposure to other viral communicable diseases; E11.9 Type 2 diabetes mellitus without complications; H54.7 Unspecified visual loss; I10 Essential (primary) hypertension; Z88.8 Allergy status to other drugs, medicaments and biological substances; J44.9 Chronic obstructive pulmonary disease, unspecified; K21.9 Gastro-esophageal reflux disease without esophagitis; M19.90 Unspecified osteoarthritis, unspecified site; M54.9 Dorsalgia, unspecified; G89.29 Other chronic pain; E66.9 Obesity, unspecified; E03.9 Hypothyroidism, unspecified; R91.8 Other nonspecific abnormal finding of lung field; Z88.6 Allergy status to analgesic agent; Z88.1 Allergy status to other antibiotic agents; Z88.0 Allergy status to penicillin; Z88.2 Allergy status to sulfonamides; Z79.4 Long term (current) use of insulin; Z79.890 Hormone replacement therapy; Z79.899 Other long term (current) drug therapy; Z87.01 Personal history of pneumonia (recurrent); Z09 Encounter for follow-up examination after completed treatment for conditions other than malignant neoplasm; Z86.19 Personal history of other infectious and parasitic diseases
CPT/HCPCS: 36415; 80053; 82140; 82150; 83605; 83690; 85025; 99285; A9270; J1815; 80048; 80076; 81001; 82962; 84145; 87086; 99284; J1650; J7030; J8540; U0002

== ENCOUNTER 2020-09-07 09:48 | Inpatient (IN) | payer MEDICAID ==
[2020-09-07] MEDS ORDERED: LORazepam 2 MG/ML SDV ONE (10:05)
[2020-09-07] MEDS ORDERED: LORazepam 2 MG/ML SDV IVPUSH ONE ×2 (10:07→16:17)
--- NOTE | 2020-09-07 10:17 | EDM.PDOC ---
<Sasha Jones - Last Filed: 09/07/20 10:11> ED HPI GENERAL MEDICAL PROBLEM - General Stated Complaint: CALL IN Time Seen by Provider: 09/07/20 10:00 Source of Information: Reports: EMS, EMS Notes Reviewed, Family, RN, RN Notes Reviewed History Limitations: Reports: Altered Mental Status - History of Present Illness INITIAL COMMENTS - FREE TEXT/NARRATIVE: pt to ER per [facility] with report of combativeness. Has recently been hospitalized, discharged yesterday. Rapid covid negative, but chest CT shows ground glass opacity consistent with COVID 19 pneumonia. pt has not been cooperative with taking lactulose @ home. pt combative in ambulance on the way in. given versed 5mg per EMS pt resting upon arrival to ED. Onset: Today - Related Data Allergies Allergy/AdvReac Type Severity Reaction Status Date / Time aspirin Allergy Cannot Verified 08/08/20 11:25 Remember atorvastatin Allergy Cannot Verified 08/08/20 11:25 Remember cephalexin Allergy Fatigue Verified 08/08/20 11:25 [From Panixine DisperDose] ciprofloxacin Allergy Diarrhea Verified 08/08/20 11:25 docusate [From Senna-S] Allergy Abdominal Verified 08/08/20 11:25 Pain levofloxacin Allergy Dizziness Verified 08/08/20 11:25 Penicillins Allergy Other Verified 08/08/20 11:25 senna [From Senna-S] Allergy Abdominal Verified 08/08/20 11:25 Pain sulfamethoxazole Allergy Shortness Verified 08/08/20 11:25 [From Bactrim] of Breath trimethoprim [From Bactrim] Allergy Shortness Verified 08/08/20 11:25 of Breath another antibiotic Allergy Cannot Uncoded 05/05/20 12:21 Remember Home Meds: Home Meds Albuterol [Proventil Neb Soln] 2.5 mg NEB Q4H PRN 02/03/15 [History] Levothyroxine [Synthroid] 100 mcg PO DAILY 02/03/15 [History] Magnesium Oxide 400 mg PO BID 02/03/15 [History] Insulin Glarg,Human.Rec.Analog [Lantus Solostar] 62 unit SUBCUT BID 03/06/15 [History] Fluticasone Furoate [Flonase Sensimist] 1 ml NS DAILY PRN 04/04/17 [History] Benzonatate 200 mg PO TID PRN 09/04/20 [History] Lactulose [Constulose] 60 ml PO QID 09/04/20 [History] Omeprazole 20 mg PO PCBREAKFAST 09/04/20 [History] Rifaximin [Xifaxan] 550 mg PO BID 09/04/20 [History] Aspirin 325 mg PO DAILY #28 tablet 09/06/20 [Rx] Past Medical History HEENT History: Reports: Impaired Vision Cardiovascular History: Reports: Hypertension Respiratory History: Reports: Asthma, COPD, Other (See Below) Other Respiratory History: Empysema Gastrointestinal History: Reports: Cholelithiasis, Cirrhosis, GERD Genitourinary History: Reports: UTI, Recurrent [employer] History: Reports: Musculoskeletal History: Reports: Arthritis, Back Pain, Chronic Neurological History: Reports: None Psychiatric History: Reports: None Endocrine/Metabolic History: Reports: Diabetes, Type II, Hypothyroidism, IDDM, Obesity/BMI 30+ Hematologic History: Reports: None Immunologic History: Reports: None Oncologic (Cancer) History: Reports: None Dermatologic History: Reports: Other (See Below) Other Dermatologic History: skin thick and discolored to extremities - Infectious Disease History Infectious Disease History: Reports: None - Past Surgical History Head Surgeries/Procedures: Reports: None GI Surgical History: Reports: Cholecystectomy, Hernia Repair/Other Female Surgical History: Reports: Section Musculoskeletal Surgical History: Reports: Other (See Below) Other Musculoskeletal Surgeries/Procedures:: Emil in left leg. Femur bone with pins in knee Social & Family History - Family History Family Medical History: No Pertinent Family History - Caffeine Use Caffeine Use: Reports: Coffee - Living Situation & Occupation Living situation: Reports: , with Family Occupation: Unemployed ED ROS GENERAL - Review of Systems Review Of Systems: Comprehensive ROS is negative, except as noted in HPI. ED EXAM, GENERAL - Physical Exam Exam Limited By: Altered Mental Status General Appearance: Obese, Other (confused) Eye Exam: Bilateral Eye: Other (scleral icterus, PERRLA 4 sluggish) Ears: Normal External Exam, Hearing Grossly Normal Nose: Normal Inspection Throat/Mouth: Normal Inspection, No Airway Compromise Head: Atraumatic, Normocephalic Neck: Normal Inspection Respiratory/Chest: No Respiratory Distress, Lungs Clear, Decreased Breath Sounds Cardiovascular: Normal Peripheral Pulses, Regular Rate, Rhythm, No Edema, No Gallop, No JVD, No Murmur, No Rub GI/Abdominal: Other (obese, pannus) (Female) Exam: Deferred Rectal (Female) Exam: Deferred Back Exam: Normal Inspection, Full Range of Motion, NT Extremities: Normal Inspection, Normal Range of Motion, Non-Tender, Normal Capillary Refill, No Pedal Edema Neurological: Confused Psychiatric: Other (confused) Skin Exam: Warm, Dry, Intact, Normal Color, No Rash Lymphatic: No Adenopathy Departure - Departure Disposition: Refer to Observation Clinical Impression: Altered mental status Qualifiers: Altered mental status type: unspecified Qualified Code(s): R41.82 - Altered mental status, unspecified - Discharge Information <PeralesJuana - Last Filed: 09/07/20 11:29> ED EXAM, GENERAL - Physical Exam Exam: See Below Course - Vital Signs Last Recorded V/S: Last Vital Signs Temp 97.6 F 09/07/20 10:03 Pulse 70 09/07/20 10:03 Resp 16 09/07/20 10:03 BP 101/59 L 09/07/20 10:03 Pulse Ox 93 L 09/07/20 10:03 - Orders/Labs/Meds Orders: Active Orders 24 hr Category Date Time Status Admission Diagnosis [ADT] Stat ADT 09/07/20 11:12 Ordered Admission Status [Patient Status] [ADT] Routine ADT 09/07/20 11:12 Active CORONAVIRUS COVID-19 PCR PHL Stat Lab 09/07/20 10:03 Ordered Labs: Laboratory Tests 09/07/20 09/07/20 09/07/20 Range/Units 09:48 09:48 09:48 WBC 6.5 (5.0-10.0) 10^3/uL RBC 3.61 L (4.2-5.4) 10^6/uL Hgb 12.4 (12.0-16.0) g/dL Hct 35.8 L (37.0-47.0) % MCV 99.2 (80-100) fL MCH 34.3 H (27.0-34.0) pg MCHC 34.6 (33.0-35.0) g/dL Plt Count 108 L (150-450) 10^3/uL Neut % (Auto) 79.1 H (42.2-75.2) % Lymph % (Auto) 11.3 L (20.5-50.1) % [place] % (Auto) 9.4 H (2-8) % Eos % (Auto) 0.0 L (1.0-3.0) % Baso % (Auto) 0.2 (0.0-1.0) % Add Manual Diff Yes Neutrophils % (Manual) 65 (42-75) % Band Neutrophils % 7 % Lymphocytes % (Manual) 18 L (20-50) % Monocytes % (Manual) 9 H (2-8) % Eosinophils % (Manual) 1 (1-3) % Sodium 137 (136-145) mmol/L Potassium 4.8 (3.5-5.1) mmol/L Chloride 107 (98-107) mmol/L Carbon Dioxide 20 L (21-32) mmol/L Anion Gap 14.8 H (7-13) mEq/L BUN 30 H (7-18) mg/dL Creatinine 1.41 H (0.55-1.02) mg/dL Est Cr Clr Drug Dosing 31.62 mL/min Estimated GFR (MDRD) 38 BUN/Creatinine Ratio 21.3 (No establ ref range) Glucose 168 H (74-99) mg/dL Calcium 8.7 (8.5-10.1) mg/dL Total Bilirubin 2.4 H (0.2-1.0) mg/dL AST 703 H (15-37) U/L ALT 98 H (14-59) U/L Alkaline Phosphatase 419 H (46-116) U/L Ammonia 142 H (11-32) umol/L C-Reactive Protein 2.6 H (0.0-0.9) mg/dL Total Protein 7.7 (6.4-8.2) g/dL Albumin 2.0 L (3.4-5.0) g/dL Globulin 5.7 Albumin/Globulin Ratio 0.35 Amylase 72 (25-115) U/L Lipase 255 (73-393) U/L SARS CoV-2 RNA Rapid BONITA (NEGATIVE) 09/07/20 Range/Units 09:58 WBC (5.0-10.0) 10^3/uL RBC (4.2-5.4) 10^6/uL Hgb (12.0-16.0) g/dL Hct (37.0-47.0) % MCV (80-100) fL MCH (27.0-34.0) pg MCHC (33.0-35.0) g/dL Plt Count (150-450) 10^3/uL Neut % (Auto) (42.2-75.2) % Lymph % (Auto) (20.5-50.1) % [place] % (Auto) (2-8) % Eos % (Auto) (1.0-3.0) % Baso % (Auto) (0.0-1.0) % Add Manual Diff Neutrophils % (Manual) (42-75) % Band Neutrophils % % Lymphocytes % (Manual) (20-50) % Monocytes % (Manual) (2-8) % Eosinophils % (Manual) (1-3) % Sodium (136-145) mmol/L Potassium (3.5-5.1) mmol/L Chloride (98-107) mmol/L Carbon Dioxide (21-32) mmol/L Anion Gap (7-13) mEq/L BUN (7-18) mg/dL Creatinine (0.55-1.02) mg/dL Est Cr Clr Drug Dosing mL/min Estimated GFR (MDRD) BUN/Creatinine Ratio (No establ ref range) Glucose (74-99) mg/dL Calcium (8.5-10.1) mg/dL Total Bilirubin (0.2-1.0) mg/dL AST (15-37) U/L ALT (14-59) U/L Alkaline Phosphatase (46-116) U/L Ammonia (11-32) umol/L C-Reactive Protein (0.0-0.9) mg/dL Total Protein (6.4-8.2) g/dL Albumin (3.4-5.0) g/dL Globulin Albumin/Globulin Ratio Amylase (25-115) U/L Lipase (73-393) U/L SARS CoV-2 RNA Rapid BONITA Negative (NEGATIVE) Meds: Medications Discontinued Medications Generic Name Dose Route Start Last Admin Trade Name Freq PRN Reason Stop Dose Admin Lorazepam Confirm 09/07/20 10:05 Ativan Administered 09/07/20 10:06 Dose 2 mg .ROUTE .STK-MED ONE Lorazepam 2 mg 09/07/20 10:07 09/07/20 10:08 Ativan IVPUSH 09/07/20 10:08 2 mg ONETIME ONE Administration - Re-Assessments/Exams Free Text/Narrative Re-Assessment/Exam: 09/07/20 11:27 Discussed patient case with Dr. Vieyra who agreed to accept the patient for observation admission. Departure - Departure Time of Disposition: 11:28 Condition: Fair - Discharge Information *PRESCRIPTION DRUG MONITORING PROGRAM REVIEWED*: No *COPY OF PRESCRIPTION DRUG MONITORING REPORT IN PATIENT RAY: No Sepsis Event Note (ED) - Focused Exam Vital Signs: Vital Signs Temp Pulse Resp BP Pulse Ox 09/07/20 10:03 97.6 F 70 16 101/59 L 93 L - My Orders Last 24 Hours: My Active Orders 09/07/20 11:12 Admission Diagnosis [ADT] Stat Admission Status [Patient Status] [ADT] Routine - Assessment/Plan Last 24 Hours: My Active Orders 09/07/20 11:12 Admission Diagnosis [ADT] Stat Admission Status [Patient Status] [ADT] Routine
[2020-09-07 10:32] LABS: ANION GAP 14.8 mEq/L (7-13)
[2020-09-07] MEDS ORDERED: Sodium Chloride 0.9% 10 ML Syringe FLUSH PRN (11:57)
[2020-09-07] MEDS ORDERED: Ondansetron 4 MG Tab.DIS PO PRN (11:57)
[2020-09-07] MEDS ORDERED: Lactulose Soln 10 GM/15 ML 946 ML Bottle RECTAL SCH (12:00)
[2020-09-07] MEDS ORDERED: Glucagon,Human Recombinant 1 MG Vial IM PRN ×3 (12:47→21:09)
[2020-09-07] MEDS ORDERED: 50% Dextrose in Water 50 ML Syringe IV PRN ×3 (12:47→21:09)
--- NOTE | 2020-09-07 12:58 | PCM.HP ---
H&P History of Present Illness - General Date of Service: 09/07/20 Admit Problem/Dx: Admission Diagnosis/Problem Admission Diagnosis/Problem Altered mental status recent admission with acute encephalopathy. she was treated for acute hepatitic encephalopathy with initial ammonia level above 100. By the time of discharge the patient's mental status was significantly better. ammonia level down to the 50s. The patient went home and apparently was doing well in the evening, took a dose of lactulose. Had a bowel movement in the morning. other than the lactulose she took no medications since discharge. During last hospital stay the patient was also treated for hyperkalemia. The patient had chest x-ray changes compatible with covid-19. Her testing was negative. This is likely a previous infection. This morning the patient was confused.Ambulance was called and the patient was agitated. She was given Versed later Ativan. In the emergency room the patient's ammonia level was elevated. She is lethargic now. Unable to give information. Talked to the patient's significant other. Information is obtained from him. Source of Information: Provider, Other - Related Data Allergies/Adverse Reactions: Allergies Allergy/AdvReac Type Severity Reaction Status Date / Time aspirin Allergy Cannot Verified 09/07/20 12:10 Remember atorvastatin Allergy Cannot Verified 09/07/20 12:10 Remember cephalexin Allergy Fatigue Verified 09/07/20 12:10 [From Panixine DisperDose] ciprofloxacin Allergy Diarrhea Verified 09/07/20 12:10 docusate [From Senna-S] Allergy Abdominal Verified 09/07/20 12:10 Pain levofloxacin Allergy Dizziness Verified 09/07/20 12:10 Penicillins Allergy Other Verified 09/07/20 12:10 senna [From Senna-S] Allergy Abdominal Verified 09/07/20 12:10 Pain sulfamethoxazole Allergy Shortness Verified 09/07/20 12:10 [From Bactrim] of Breath trimethoprim [From Bactrim] Allergy Shortness Verified 09/07/20 12:10 of Breath another antibiotic Allergy Cannot Uncoded 05/05/20 12:21 Remember Home Medications: Home Meds Albuterol [Proventil Neb Soln] 2.5 mg NEB Q4H PRN 02/03/15 [History] Levothyroxine [Synthroid] 100 mcg PO DAILY 02/03/15 [History] Magnesium Oxide 400 mg PO BID 02/03/15 [History] Insulin Glarg,Human.Rec.Analog [Lantus Solostar] 62 unit SUBCUT BID 03/06/15 [History] Fluticasone Furoate [Flonase Sensimist] 1 ml NS DAILY PRN 04/04/17 [History] Benzonatate 200 mg PO TID PRN 09/04/20 [History] Lactulose [Constulose] 60 ml PO QID 09/04/20 [History] Omeprazole 20 mg PO PCBREAKFAST 09/04/20 [History] Rifaximin [Xifaxan] 550 mg PO BID 09/04/20 [History] Aspirin 325 mg PO DAILY #28 tablet 09/06/20 [Rx] Past Medical History HEENT History: Reports: Impaired Vision Cardiovascular History: Reports: Hypertension Respiratory History: Reports: Asthma, COPD, Other (See Below) Other Respiratory History: Empysema Gastrointestinal History: Reports: Cholelithiasis, Cirrhosis, GERD Genitourinary History: Reports: UTI, Recurrent 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: Reports: Musculoskeletal History: Reports: Arthritis, Back Pain, Chronic Neurological History: Reports: None Psychiatric History: Reports: None Endocrine/Metabolic History: Reports: Diabetes, Type II, Hypothyroidism, IDDM, Obesity/BMI 30+ Hematologic History: Reports: None Immunologic History: Reports: None Oncologic (Cancer) History: Reports: None Dermatologic History: Reports: Other (See Below) Other Dermatologic History: skin thick and discolored to extremities - Infectious Disease History Infectious Disease History: Reports: None - Past Surgical History Head Surgeries/Procedures: Reports: None GI Surgical History: Reports: Cholecystectomy, Hernia Repair/Other Female Surgical History: Reports: Section Musculoskeletal Surgical History: Reports: Other (See Below) Other Musculoskeletal Surgeries/Procedures:: Emil in left leg. Femur bone with pins in knee Social & Family History - Family History Family Medical History: No Pertinent Family History - Tobacco Use Tobacco Use Status *Q: Unknown Ever Used Tobacco - Caffeine Use Caffeine Use: Reports: Coffee - Living Situation & Occupation Living situation: Reports: , with Family Occupation: Unemployed H&P Review of Systems - Review of Systems: Review Of Systems: Unable To Obtain Reason Not Obtained: obtained from the patient's significant other. General: Denies: Fever Pulmonary: Denies: Shortness of Breath, Wheezing Cardiovascular: Denies: Chest Pain Gastrointestinal: Denies: Abdominal Pain Psychiatric: Reports: Confusion, Agitation Exam - Exam Exam: See Below - Vital Signs Vital Signs: Last Vital Signs Temp 97.7 F 09/07/20 11:38 Pulse 75 09/07/20 11:38 Resp 20 09/07/20 11:38 BP 110/72 09/07/20 11:38 Pulse Ox 96 09/07/20 11:38 Weight: 290 lb - Exam General: Obtunded Lungs: Clear to Auscultation, Normal Respiratory Effort, Decreased Breath Sounds Cardiovascular: Regular Rate, Regular Rhythm GI/Abdominal Exam: Other (morbidly obese) Extremities: Pedal Edema - Patient Data Lab Results Last 24 hrs: Laboratory Results - last 24 hr 09/07/20 09/07/20 09/07/20 Range/Units 09:48 09:48 09:48 WBC 6.5 (5.0-10.0) 10^3/uL RBC 3.61 L (4.2-5.4) 10^6/uL Hgb 12.4 (12.0-16.0) g/dL Hct 35.8 L (37.0-47.0) % MCV 99.2 (80-100) fL MCH 34.3 H (27.0-34.0) pg MCHC 34.6 (33.0-35.0) g/dL Plt Count 108 L (150-450) 10^3/uL Neut % (Auto) 79.1 H (42.2-75.2) % Lymph % (Auto) 11.3 L (20.5-50.1) % [place] % (Auto) 9.4 H (2-8) % Eos % (Auto) 0.0 L (1.0-3.0) % Baso % (Auto) 0.2 (0.0-1.0) % Add Manual Diff Yes Neutrophils % (Manual) 65 (42-75) % Band Neutrophils % 7 % Lymphocytes % (Manual) 18 L (20-50) % Monocytes % (Manual) 9 H (2-8) % Eosinophils % (Manual) 1 (1-3) % Sodium 137 (136-145) mmol/L Potassium 4.8 (3.5-5.1) mmol/L Chloride 107 (98-107) mmol/L Carbon Dioxide 20 L (21-32) mmol/L Anion Gap 14.8 H (7-13) mEq/L BUN 30 H (7-18) mg/dL Creatinine 1.41 H (0.55-1.02) mg/dL Est Cr Clr Drug Dosing 31.62 mL/min Estimated GFR (MDRD) 38 BUN/Creatinine Ratio 21.3 (No establ ref range) Glucose 168 H (74-99) mg/dL Calcium 8.7 (8.5-10.1) mg/dL Total Bilirubin 2.4 H (0.2-1.0) mg/dL AST 703 H (15-37) U/L ALT 98 H (14-59) U/L Alkaline Phosphatase 419 H (46-116) U/L Ammonia 142 H (11-32) umol/L C-Reactive Protein 2.6 H (0.0-0.9) mg/dL Total Protein 7.7 (6.4-8.2) g/dL Albumin 2.0 L (3.4-5.0) g/dL Globulin 5.7 Albumin/Globulin Ratio 0.35 Amylase 72 (25-115) U/L Lipase 255 (73-393) U/L SARS CoV-2 RNA Rapid BONITA (NEGATIVE) 09/07/20 Range/Units 09:58 WBC (5.0-10.0) 10^3/uL RBC (4.2-5.4) 10^6/uL Hgb (12.0-16.0) g/dL Hct (37.0-47.0) % MCV (80-100) fL MCH (27.0-34.0) pg MCHC (33.0-35.0) g/dL Plt Count (150-450) 10^3/uL Neut % (Auto) (42.2-75.2) % Lymph % (Auto) (20.5-50.1) % [place] % (Auto) (2-8) % Eos % (Auto) (1.0-3.0) % Baso % (Auto) (0.0-1.0) % Add Manual Diff Neutrophils % (Manual) (42-75) % Band Neutrophils % % Lymphocytes % (Manual) (20-50) % Monocytes % (Manual) (2-8) % Eosinophils % (Manual) (1-3) % Sodium (136-145) mmol/L Potassium (3.5-5.1) mmol/L Chloride (98-107) mmol/L Carbon Dioxide (21-32) mmol/L Anion Gap (7-13) mEq/L BUN (7-18) mg/dL Creatinine (0.55-1.02) mg/dL Est Cr Clr Drug Dosing mL/min Estimated GFR (MDRD) BUN/Creatinine Ratio (No establ ref range) Glucose (74-99) mg/dL Calcium (8.5-10.1) mg/dL Total Bilirubin (0.2-1.0) mg/dL AST (15-37) U/L ALT (14-59) U/L Alkaline Phosphatase (46-116) U/L Ammonia (11-32) umol/L C-Reactive Protein (0.0-0.9) mg/dL Total Protein (6.4-8.2) g/dL Albumin (3.4-5.0) g/dL Globulin Albumin/Globulin Ratio Amylase (25-115) U/L Lipase (73-393) U/L SARS CoV-2 RNA Rapid BONITA Negative (NEGATIVE) Result Diagrams: 09/07/20 09:48 09/07/20 09:48 - Problem List (1) Altered mental status SNOMED Code(s): 551273952 ICD Code: R41.82 - ALTERED MENTAL STATUS, UNSPECIFIED Status: Acute Current Visit: Yes Qualifiers: Altered mental status type: unspecified Qualified Code(s): R41.82 - Altered mental status, unspecified (2) Acute hepatic encephalopathy SNOMED Code(s): 55754343, 82264455 ICD Code: K72.00 - ACUTE AND SUBACUTE HEPATIC FAILURE WITHOUT COMA Status: Acute Current Visit: No (3) Cirrhosis of liver SNOMED Code(s): 34309505 ICD Code: K74.60 - UNSPECIFIED CIRRHOSIS OF LIVER Status: Acute Current Visit: No Qualifiers: Hepatic cirrhosis type: unspecified hepatic cirrhosis Ascites presence: unspecified Qualified Code(s): K74.60 - Unspecified cirrhosis of liver Problem List Initiated/Reviewed/Updated: Yes Orders Last 24hrs: Active Orders 24 hr Category Date Time Status Admission Diagnosis [ADT] Stat ADT 09/07/20 11:12 Ordered Patient Status [ADT] Routine ADT 09/07/20 12:49 Active Antiembolic Devices [RC] PER UNIT ROUTINE Care 09/07/20 11:58 Active Glucose [Blood Glucose Check, Bedside] [RC] QIDACANDBED Care 09/07/20 12:47 Active Oxygen Therapy [RC] PRN Care 09/07/20 11:57 Active Peripheral IV Care [RC] . DIRECTED Care 09/07/20 11:58 Active Up With Assistance [RC] ASDIRECTED Care 09/07/20 11:57 Active VTE/DVT Education [RC] PER UNIT ROUTINE Care 09/07/20 11:57 Active Vital Signs [RC] Q4H Care 09/07/20 11:57 Active Clear Liquid Diet [DIET] Diet 09/07/20 Lunch Active AMMONIA VENOUS [CHEM] AM Lab 09/08/20 05:11 Ordered AMMONIA VENOUS [CHEM] AM Lab 09/09/20 05:11 Ordered AMMONIA VENOUS [CHEM] AM Lab 09/10/20 05:11 Ordered BASIC METABOLIC PANEL,BMP [CHEM] AM Lab 09/08/20 05:15 Ordered CBC WITH AUTO DIFF [HEME] AM Lab 09/08/20 05:15 Ordered CORONAVIRUS COVID-19 PCR PHL Stat Lab 09/07/20 10:03 Ordered DD [D-DIMER QUANTITATIVE] [COAG] AM Lab 09/08/20 05:11 Ordered DD [D-DIMER QUANTITATIVE] [COAG] AM Lab 09/09/20 05:11 Ordered DD [D-DIMER QUANTITATIVE] [COAG] AM Lab 09/10/20 05:11 Ordered DD [D-DIMER QUANTITATIVE] [COAG] AM Lab 09/11/20 05:11 Ordered HEPATIC FUNCTION PANEL,HFP [CHEM] AM Lab 09/08/20 05:11 Ordered Aspirin Med 09/08/20 09:00 Ordered 81 mg PO DAILY Dextrose 50% in Water Med 09/07/20 12:47 Ordered 50 ml IV ASDIRECTED PRN Glucagon,Human Recombinant [GlucaGen] Med 09/07/20 12:47 Ordered 1 mg IM ASDIRECTED PRN Heparin Sodium Med 09/07/20 14:00 Active 5,000 units SUBCUT Q8HR Insulin Glarg,Human.Rec.Analog [LantUS] Med 09/07/20 21:00 Active 30 unit SUBCUT BID Insulin Lispro [HumaLOG] Med 09/07/20 16:00 Ordered See Protocol SUBCUT ACBED Lactulose [Chronulac] Med 09/07/20 12:00 Active 200 gm RECTAL Q4H Levothyroxine [Synthroid] Med 09/08/20 06:00 Active 100 mcg PO ACBRK Magnesium Oxide [Magnesium Oxide] Med 09/07/20 21:00 Ordered 400 mg PO BID Omeprazole Med 09/08/20 06:00 Active 20 mg PO ACBRK Ondansetron [Zofran ODT] Med 09/07/20 11:57 Active 4 mg PO Q6H PRN Rifaximin [Xifaxan] Med 09/07/20 21:00 Active 550 mg PO BID Sodium Chloride 0.9% [Saline Flush] Med 09/07/20 11:57 Active 10 ml FLUSH ASDIRECTED PRN Antiembolic Hose [OM.PC] Per Unit Routine Oth 09/07/20 11:57 Ordered Peripheral IV Insertion Adult [OM.PC] Routine Oth 09/07/20 11:57 Ordered Saline Lock Insert [OM.PC] Routine Oth 09/07/20 11:57 Ordered Resuscitation Status Routine Resus Stat 09/07/20 11:57 Ordered Medication Orders Aspirin (Aspirin) 81 mg PO DAILY ZAKIYA Dextrose/Water (Dextrose 50% In Water) 50 ml IV ASDIRECTED PRN PRN Reason: Hypoglycemia Glucagon (Glucagen) 1 mg IM ASDIRECTED PRN PRN Reason: Hypoglycemia Heparin Sodium (Porcine) (Heparin Sodium) 5,000 units SUBCUT Q8HR ZAKIYA Insulin Glargine (Lantus) 30 unit SUBCUT BID ZAKIYA Insulin Human Lispro (Humalog) 0 unit SUBCUT ACBED ZAKIYA; Protocol Lactulose (Chronulac) 200 gm RECTAL Q4H ZAKIYA Levothyroxine Sodium (Synthroid) 100 mcg PO ACBRK ZAKIYA Non-Formulary Medication (Magnesium Oxide [Magnesium Oxide]) 400 mg PO BID ZAKIYA Omeprazole (Omeprazole) 20 mg PO ACBRK ZAKIYA Ondansetron HCl (Zofran Odt) 4 mg PO Q6H PRN PRN Reason: nausea, able to take PO Rifaximin (Xifaxan) 550 mg PO BID ZAKIYA Sodium Chloride (Saline Flush) 10 ml FLUSH ASDIRECTED PRN PRN Reason: Keep Vein Open Assessment/Plan Comment:: h/o liver cirrhosis, hepatic encephalopathy. recent hospital stay. Discharged last night Presented with confusion, agitation Noted to have elevated ammonia level in the emergency room Acute hepatic encephalopathy took lactulose but not rifaxmin since discharge Ammonia level is high again obtunded now after versed, ativan restart with lactulose, rifaximin start lactulose enema if waking up and able to take po - will switch to po if continues to be lethargic will place NG tube Hyperkalemia, Acute renal failure during last admission resolved Hold ARASH inhibitor Diabetes check BS use supplemental insulin give lower dose of lantus than home regimen re: decreased MS - will likely have low oral intake Chronic hepatitis, likely alcoholic cirrhosis stable Abnormal chest x-ray Compatible with previous COVID pneumonia The patient tested negative For Covid on 03 September tested negative on 05 September as well this is likely an old infection off isolation Elevated d-dimer Likely secondary to previous Covid continue aspirin prophylaxis she does have a h/o GI bleed - follow hgb dvt prophylaxis sq heparin
[2020-09-07] MEDS ORDERED: Lactulose Soln 10 GM/15 ML 30 ML UD Cup PO SCH (13:45)
[2020-09-07] MEDS ORDERED: Lactulose Soln 10 GM/15 ML 30 ML UD Cup ONE (13:46)
[2020-09-07] MEDS: Lactulose Soln 10 GM/15 ML 30 ML UD Cup PO SCH ×2 (14:23→17:54)
[2020-09-07] MEDS: Sodium Chloride 0.9% 1,000 ML IV SCH (14:50)
[2020-09-07] MEDS: Heparin Sodium 5,000 Units/ML Vial SUBCUT SCH ×2 (15:01→21:22)
[2020-09-07] MEDS: Rifaximin 550 MG Tab PO SCH (16:47)
[2020-09-07] MEDS: Insulin Lispro 100 Units/ML 3 ML Vial SUBCUT SCH ×3 (17:54→21:33)
[2020-09-07] MEDS ORDERED: Insulin Glarg,Human.Rec.Analog 100 Unit/ML SUBCUT SCH (21:00)
[2020-09-07] MEDS ORDERED: Rifaximin 550 MG Tab PO SCH (21:00)
[2020-09-08] MEDS: Lactulose Soln 10 GM/15 ML 30 ML UD Cup PO SCH ×5 (00:22→23:10)
[2020-09-08] MEDS ORDERED: LORazepam 1 MG Tab PO ONE (00:39)
[2020-09-08] MEDS ORDERED: LORazepam 1 MG Tab PO PRN (01:26)
[2020-09-08] MEDS: Sodium Chloride 0.9% 1,000 ML IV SCH (03:25)
[2020-09-08] MEDS: Levothyroxine 100 MCG Tab PO SCH (06:04)
[2020-09-08] MEDS: Omeprazole 20 MG Cap.CR PO SCH (06:04)
[2020-09-08] MEDS: Heparin Sodium 5,000 Units/ML Vial SUBCUT SCH ×3 (06:05→23:03)
[2020-09-08] MEDS ORDERED: Insulin Lispro 100 Units/ML 3 ML Vial SUBCUT SCH (08:00)
[2020-09-08] MEDS ORDERED: Aspirin 325 MG Tab PO SCH (09:00)
[2020-09-08] MEDS: Insulin Lispro 100 Units/ML 3 ML Vial SUBCUT SCH ×4 (09:16→23:14)
[2020-09-08] MEDS: Rifaximin 550 MG Tab PO SCH ×2 (09:17→23:03)
[2020-09-08] MEDS: Aspirin 81 MG Tab.EC PO SCH (09:18)
[2020-09-08 10:00] LABS: ANION GAP 20.2 mEq/L (7-13)
--- NOTE | 2020-09-08 15:54 | PCM.PN ---
- General Info Date of Service: 09/08/20 Admission Dx/Problem (Free Text): Admission Diagnosis/Problem Admission Diagnosis/Problem Altered mental status Functional Status: Reports: Pain Controlled, Tolerating Diet, Urinating - Review of Systems General: Reports: Weakness, Appetite (poor). Denies: Fever HEENT: Denies: Headaches, Sinus Congestion, Sore Throat, Visual Changes Pulmonary: Denies: Shortness of Breath, Cough, Wheezing Cardiovascular: Denies: Chest Pain, Edema, Lightheadedness Gastrointestinal: Denies: Abdominal Pain, Difficulty Swallowing, Vomiting Genitourinary: Denies: Dysuria, Burning, Flank Pain Musculoskeletal: Denies: Neck Pain, Shoulder Pain, Back Pain, Joint Swelling Skin: Denies: Cyanosis, Jaundice, Bruising, Pruritis Neurological: Reports: Confusion (mild), Difficulty Walking, Weakness, Gait Dist urbance Psychiatric: Reports: Confusion (mild) - Patient Data Vitals - Most Recent: Last Vital Signs Temp 36.6 C 09/08/20 11:00 Pulse 81 09/08/20 11:00 Resp 22 H 09/08/20 11:00 BP 121/51 L 09/08/20 11:00 Pulse Ox 95 09/08/20 11:57 Weight - Most Recent: 131.542 kg I&O - Last 24 Hours: Intake & Output 09/08/20 09/08/20 09/08/20 06:59 14:59 22:59 Intake Total 920 1115 Balance 920 1115 Lab Results Last 24 Hours: Laboratory Results - last 24 hr 09/07/20 09/07/20 09/08/20 Range/Units 16:46 20:46 08:20 WBC (5.0-10.0) 10^3/uL RBC (4.2-5.4) 10^6/uL Hgb (12.0-16.0) g/dL Hct (37.0-47.0) % MCV (80-100) fL MCH (27.0-34.0) pg MCHC (33.0-35.0) g/dL Plt Count (150-450) 10^3/uL Neut % (Auto) (42.2-75.2) % Lymph % (Auto) (20.5-50.1) % [place] % (Auto) (2-8) % Eos % (Auto) (1.0-3.0) % Baso % (Auto) (0.0-1.0) % D-Dimer, Quantitative (0-400) ng/mL Sodium (136-145) mmol/L Potassium (3.5-5.1) mmol/L Chloride (98-107) mmol/L Carbon Dioxide (21-32) mmol/L Anion Gap (7-13) mEq/L BUN (7-18) mg/dL Creatinine (0.55-1.02) mg/dL Est Cr Clr Drug Dosing mL/min Estimated GFR (MDRD) Glucose (74-99) mg/dL POC Glucose 177 H 191 H 185 H (70-105) mg/dl Calcium (8.5-10.1) mg/dL Total Bilirubin (0.2-1.0) mg/dL Direct Bilirubin (0.0-0.2) mg/dL Indirect Bilirubin AST (15-37) U/L ALT (14-59) U/L Alkaline Phosphatase (46-116) U/L Ammonia (11-32) umol/L Total Protein (6.4-8.2) g/dL Albumin (3.4-5.0) g/dL Globulin Albumin/Globulin Ratio 09/08/20 09/08/20 09/08/20 Range/Units 09:10 09:10 09:10 WBC 7.8 (5.0-10.0) 10^3/uL RBC 3.37 L (4.2-5.4) 10^6/uL Hgb 11.9 L (12.0-16.0) g/dL Hct 33.5 L (37.0-47.0) % MCV 99.4 (80-100) fL MCH 35.3 H (27.0-34.0) pg MCHC 35.5 H (33.0-35.0) g/dL Plt Count 111 L (150-450) 10^3/uL Neut % (Auto) 78.3 H (42.2-75.2) % Lymph % (Auto) 9.5 L (20.5-50.1) % [place] % (Auto) 11.8 H (2-8) % Eos % (Auto) 0.3 L (1.0-3.0) % Baso % (Auto) 0.1 (0.0-1.0) % D-Dimer, Quantitative 1370 H (0-400) ng/mL Sodium 142 (136-145) mmol/L Potassium 4.2 (3.5-5.1) mmol/L Chloride 111 H (98-107) mmol/L Carbon Dioxide 15 L (21-32) mmol/L Anion Gap 20.2 H (7-13) mEq/L BUN 35 H (7-18) mg/dL Creatinine 1.77 H (0.55-1.02) mg/dL Est Cr Clr Drug Dosing 25.19 mL/min Estimated GFR (MDRD) 30 Glucose 173 H (74-99) mg/dL POC Glucose (70-105) mg/dl Calcium 8.7 (8.5-10.1) mg/dL Total Bilirubin 3.4 H (0.2-1.0) mg/dL Direct Bilirubin 2.2 H (0.0-0.2) mg/dL Indirect Bilirubin 1.2 AST 634 H (15-37) U/L ALT 112 H (14-59) U/L Alkaline Phosphatase 393 H (46-116) U/L Ammonia (11-32) umol/L Total Protein 7.0 (6.4-8.2) g/dL Albumin 2.0 L (3.4-5.0) g/dL Globulin 5.0 Albumin/Globulin Ratio 0.40 09/08/20 09/08/20 Range/Units 09:10 11:40 WBC (5.0-10.0) 10^3/uL RBC (4.2-5.4) 10^6/uL Hgb (12.0-16.0) g/dL Hct (37.0-47.0) % MCV (80-100) fL MCH (27.0-34.0) pg MCHC (33.0-35.0) g/dL Plt Count (150-450) 10^3/uL Neut % (Auto) (42.2-75.2) % Lymph % (Auto) (20.5-50.1) % [place] % (Auto) (2-8) % Eos % (Auto) (1.0-3.0) % Baso % (Auto) (0.0-1.0) % D-Dimer, Quantitative (0-400) ng/mL Sodium (136-145) mmol/L Potassium (3.5-5.1) mmol/L Chloride (98-107) mmol/L Carbon Dioxide (21-32) mmol/L Anion Gap (7-13) mEq/L BUN (7-18) mg/dL Creatinine (0.55-1.02) mg/dL Est Cr Clr Drug Dosing mL/min Estimated GFR (MDRD) Glucose (74-99) mg/dL POC Glucose 183 H (70-105) mg/dl Calcium (8.5-10.1) mg/dL Total Bilirubin (0.2-1.0) mg/dL Direct Bilirubin (0.0-0.2) mg/dL Indirect Bilirubin AST (15-37) U/L ALT (14-59) U/L Alkaline Phosphatase (46-116) U/L Ammonia 64 H (11-32) umol/L Total Protein (6.4-8.2) g/dL Albumin (3.4-5.0) g/dL Globulin Albumin/Globulin Ratio Med Orders - Current: Current Medications Aspirin (Halfprin) 81 mg PO DAILY [facility] Last Admin: 09/08/20 09:18 Dose: 81 mg Documented by: Dextrose/Water (Dextrose 50% In Water) 50 ml IV ASDIRECTED PRN PRN Reason: Hypoglycemia Glucagon (Glucagen) 1 mg IM ASDIRECTED PRN PRN Reason: Hypoglycemia Heparin Sodium (Porcine) (Heparin Sodium) 5,000 units SUBCUT Q8HR [facility] Last Admin: 09/08/20 14:50 Dose: 5,000 units Documented by: Sodium Chloride (Normal Saline) 1,000 mls @ 75 mls/hr IV ASDIRECTED [facility] Last Admin: 09/08/20 03:25 Dose: 75 mls/hr Documented by: Insulin Human Lispro (Humalog) 0 unit SUBCUT WITHMEALSANDBED [facility]; Protocol Last Admin: 09/08/20 12:00 Dose: 1 unit Documented by: Lactulose (Cephulac) 45 gm PO Q6HR [facility] Last Admin: 09/08/20 11:51 Dose: 45 gm Documented by: Levothyroxine Sodium (Synthroid) 100 mcg PO ACBRK [facility] Last Admin: 09/08/20 06:04 Dose: 100 mcg Documented by: Lorazepam (Ativan) 2 mg PO ONETIME PRN PRN Reason: Insomnia Magnesium Oxide (Magnesium Oxide) 500 mg PO BID [facility] Last Admin: 09/08/20 09:17 Dose: 500 mg Documented by: Omeprazole (Omeprazole) 20 mg PO ACBRK [facility] Last Admin: 09/08/20 06:04 Dose: 20 mg Documented by: Ondansetron HCl (Zofran Odt) 4 mg PO Q6H PRN PRN Reason: nausea, able to take PO Rifaximin (Xifaxan) 550 mg PO BID [facility] Last Admin: 09/08/20 09:17 Dose: 550 mg Documented by: Sodium Chloride (Saline Flush) 10 ml FLUSH ASDIRECTED PRN PRN Reason: Keep Vein Open Last Admin: 09/07/20 14:50 Dose: 10 ml Documented by: Discontinued Medications Aspirin (Aspirin) 325 mg PO DAILY [facility] Dextrose/Water (Dextrose 50% In Water) 50 ml IV ASDIRECTED PRN PRN Reason: Hypoglycemia Dextrose/Water (Dextrose 50% In Water) 50 ml IV ASDIRECTED PRN PRN Reason: Hypoglycemia Glucagon (Glucagen) 1 mg IM ASDIRECTED PRN PRN Reason: Hypoglycemia Glucagon (Glucagen) 1 mg IM ASDIRECTED PRN PRN Reason: Hypoglycemia Insulin Glargine (Lantus) 30 unit SUBCUT BID [facility] Last Admin: 09/07/20 21:35 Dose: Not Given Documented by: Insulin Human Lispro (Humalog) 0 unit SUBCUT QIDACANDBED [facility]; Protocol Last Admin: 09/07/20 21:33 Dose: Not Given Documented by: Insulin Human Lispro (Humalog) 0 unit SUBCUT WITHMEALSANDBED [facility]; Protocol Lactulose (Chronulac) 200 gm RECTAL Q4H [facility] Last Admin: 09/07/20 15:53 Dose: Not Given Documented by: Lactulose (Cephulac) 30 gm PO Q6HR [facility] Last Admin: 09/07/20 15:54 Dose: Not Given Documented by: Lactulose (Cephulac) Confirm Administered Dose 60 gm .ROUTE .STK-MED ONE Stop: 09/07/20 13:47 Last Admin: 09/07/20 14:28 Dose: Not Given Documented by: Lorazepam (Ativan) Confirm Administered Dose 2 mg .ROUTE .STK-MED ONE Stop: 09/07/20 10:06 Last Admin: 09/07/20 13:31 Dose: Not Given Documented by: Lorazepam (Ativan) 2 mg IVPUSH ONETIME ONE Stop: 09/07/20 10:08 Last Admin: 09/07/20 10:08 Dose: 2 mg Documented by: Lorazepam (Ativan) 0.5 mg IVPUSH ONETIME ONE Stop: 09/07/20 16:18 Last Admin: 09/07/20 16:24 Dose: 0.5 mg Documented by: Lorazepam (Ativan) 2 mg PO ONETIME ONE Stop: 09/08/20 00:40 Last Admin: 09/08/20 01:54 Dose: Not Given Documented by: Rifaximin (Xifaxan) 550 mg PO BID ZAKIYA - Exam Quality Assessment: DVT Prophylaxis. No: Supplemental Oxygen, Urine Catheter General: Alert, Oriented, Cooperative, No Acute Distress HEENT: Pupils Equal, Pupils Reactive, EOMI, Mucous Membr. Moist/[place] Neck: Supple, No JVD, No Thyromegaly Lungs: Clear to Auscultation Cardiovascular: Regular Rate, Regular Rhythm GI/Abdominal Exam: Normal Bowel Sounds, Soft, Non-Tender (Female) Exam: Deferred Back Exam: Normal Inspection Extremities: Normal Inspection, Pedal Edema Skin: Warm, Dry, Intact Neurological: No New Focal Deficit Psy/Mental Status: Alert, Normal Affect, Normal Mood Sepsis Event Note - Evaluation Sepsis Screening Result: No Definite Risk - Focused Exam Vital Signs: Vital Signs Temp Pulse Resp BP Pulse Ox Pulse Ox 09/08/20 11:57 95 09/08/20 11:00 36.6 C 81 22 H 121/51 L 95 09/08/20 07:00 36.6 C 96 18 117/46 L 95 - Problem List Review Problem List Initiated/Reviewed/Updated: Yes - My Orders Last 24 Hours: My Active Orders 09/07/20 21:00 Insulin Lispro [HumaLOG] See Protocol SUBCUT WITHMEALSANDBED 09/07/20 21:04 Dextrose 50% in Water 50 ml IV ASDIRECTED PRN Glucagon,Human Recombinant [GlucaGen] 1 mg IM ASDIRECTED PRN 09/08/20 01:26 LORazepam [Ativan] 2 mg PO ONETIME PRN - Plan Plan:: This is a 55 Y/O F was admitted recently with acute encephalopathy. she was treated for acute hepatitic encephalopathy with initial ammonia level above 100. By the time of discharge the patient's mental status was significantly better. ammonia level down to the 50s. The patient went home and apparently was doing well in the evening, took a dose of lactulose. Had a bowel movement in the morning. other than the lactulose she took no medications since discharge. The patient had chest x-ray changes compatible with covid-19. Her testing was negative. This is likely a previous infection. This morning ( 09/07/20) the patient was confused.and Imbalance and the patient was agitated. She was given Versed later Ativan. In the emergency room the patient's ammonia level was elevated around 140. Impression and Plan 1. h/o liver cirrhosis, and hepatic encephalopathy. - recent hospital stay. Discharged last night Presented with confusion, agitation Noted to have elevated ammonia level in the emergency room -Will continue lactulose and Rifaximin 2. Acute hepatic encephalopathy: the pt took lactulose but not rifaximin since discharge Ammonia level is high again -Continue with lactulose, rifaximin ( 550 mg BID) -She is awake and taking oral Lactulose 3. Hyperkalemia, Acute renal failure during last admission : resolved and continue to hold ARASH inhibitor 4. Diabetes : her appetite is poor and check blood sugar and use correctional sliding scale for insulin Will hold lantus t 5. Chronic hepatitis, likely alcoholic cirrhosis stable 6. Abnormal chest x-ray Compatible with previous COVID pneumonia The patient tested negative For Covid on 03 September tested negative on 05 September as well this is likely an old infection off isolation and not on any abx 7. Elevated d-dimer Likely secondary to previous Covid continue aspirin prophylaxis she does have a h/o GI bleed - follow hgb DVT prophylaxis: sq heparin
[2020-09-08] MEDS: LORazepam 1 MG Tab PO PRN (23:03)
[2020-09-09] MEDS ORDERED: Lactulose Soln 10 GM/15 ML 30 ML UD Cup ONE (04:50)
[2020-09-09] MEDS: Lactulose Soln 10 GM/15 ML 30 ML UD Cup PO SCH ×3 (06:00→18:00)
[2020-09-09] MEDS: Omeprazole 20 MG Cap.CR PO SCH (06:01)
[2020-09-09] MEDS: Heparin Sodium 5,000 Units/ML Vial SUBCUT SCH ×3 (06:01→21:02)
[2020-09-09] MEDS: LORazepam 1 MG Tab PO PRN ×2 (06:01→21:03)
[2020-09-09] MEDS: Levothyroxine 100 MCG Tab PO SCH (06:01)
[2020-09-09] MEDS: Insulin Lispro 100 Units/ML 3 ML Vial SUBCUT SCH ×4 (09:24→21:02)
[2020-09-09] MEDS: Aspirin 81 MG Tab.EC PO SCH (09:30)
[2020-09-09] MEDS: Rifaximin 550 MG Tab PO SCH ×2 (09:30→20:45)
--- NOTE | 2020-09-09 12:35 | PCM.PN ---
- General Info Date of Service: 09/09/20 Admission Dx/Problem (Free Text): Admission Diagnosis/Problem Admission Diagnosis/Problem Altered mental status/Hyperammonemia Subjective Update: Pt was seen in room, she is more alert today, feels hungry and wanted to eat, S he has no nausea or Vomiting, No fever or Chill Functional Status: Reports: Pain Controlled, Tolerating Diet, Urinating, Other (going from Bed to chair) - Review of Systems General: Reports: Weakness, Appetite (feels hungry and wants to eat). Denies: Fever, Chills HEENT: Denies: Dysphasia, Headaches, Sinus Congestion, Visual Changes Pulmonary: Denies: Shortness of Breath, Cough, Sputum, Wheezing Cardiovascular: Reports: Edema. Denies: Chest Pain, Lightheadedness Gastrointestinal: Reports: Decreased Appetite. Denies: Abdominal Pain, Difficulty Swallowing, Nausea, Vomiting Genitourinary: Denies: Dysuria, Frequency, Burning Musculoskeletal: Denies: Neck Pain, Leg Pain, Joint Pain Skin: Denies: Cyanosis, Jaundice, Bruising, Pruritis, Rash Neurological: Reports: Confusion, Weakness. Denies: Numbness, Tremors Psychiatric: Reports: Confusion. Denies: Anxiety, Agitation - Patient Data Vitals - Most Recent: Last Vital Signs Temp 36.4 C 09/09/20 11:00 Pulse 64 09/09/20 11:00 Resp 20 09/09/20 11:00 BP 124/90 09/09/20 11:00 Pulse Ox 93 L 09/09/20 11:00 Weight - Most Recent: 131.542 kg I&O - Last 24 Hours: Intake & Output 09/08/20 09/09/20 09/09/20 22:59 06:59 14:59 Intake Total 100 600 Balance 100 600 Lab Results Last 24 Hours: Laboratory Results - last 24 hr 09/08/20 09/08/20 09/09/20 Range/Units 17:12 23:14 06:10 D-Dimer, Quantitative 944 H (0-400) ng/mL POC Glucose 155 H 149 H (70-105) mg/dl Ammonia (11-32) umol/L 09/09/20 09/09/20 09/09/20 Range/Units 06:10 07:59 11:49 D-Dimer, Quantitative (0-400) ng/mL POC Glucose 142 H 150 H (70-105) mg/dl Ammonia 33 H (11-32) umol/L Med Orders - Current: Current Medications Aspirin (Halfprin) 81 mg PO DAILY [facility] Last Admin: 09/09/20 09:30 Dose: 81 mg Documented by: Dextrose/Water (Dextrose 50% In Water) 50 ml IV ASDIRECTED PRN PRN Reason: Hypoglycemia Glucagon (Glucagen) 1 mg IM ASDIRECTED PRN PRN Reason: Hypoglycemia Heparin Sodium (Porcine) (Heparin Sodium) 5,000 units SUBCUT Q8HR [facility] Last Admin: 09/09/20 06:01 Dose: 5,000 units Documented by: Sodium Chloride (Normal Saline) 1,000 mls @ 75 mls/hr IV ASDIRECTED [facility] Last Admin: 09/08/20 03:25 Dose: 75 mls/hr Documented by: Insulin Human Lispro (Humalog) 0 unit SUBCUT WITHMEALSANDBED [facility]; Protocol Last Admin: 09/09/20 09:24 Dose: Not Given Documented by: Lactulose (Cephulac) 45 gm PO Q6HR [facility] Last Admin: 09/09/20 06:00 Dose: 45 gm Documented by: Levothyroxine Sodium (Synthroid) 100 mcg PO ACBRK [facility] Last Admin: 09/09/20 06:01 Dose: 100 mcg Documented by: Lorazepam (Ativan) 2 mg PO ONETIME PRN PRN Reason: Insomnia Last Admin: 09/08/20 17:01 Dose: 2 mg Documented by: Lorazepam (Ativan) 1 mg PO Q6H PRN PRN Reason: Agitation Last Admin: 09/09/20 06:01 Dose: 1 mg Documented by: Magnesium Oxide (Magnesium Oxide) 500 mg PO BID [facility] Last Admin: 09/09/20 09:30 Dose: 500 mg Documented by: Omeprazole (Omeprazole) 20 mg PO ACBRK [facility] Last Admin: 09/09/20 06:01 Dose: 20 mg Documented by: Ondansetron HCl (Zofran Odt) 4 mg PO Q6H PRN PRN Reason: nausea, able to take PO Rifaximin (Xifaxan) 550 mg PO BID [facility] Last Admin: 09/09/20 09:30 Dose: 550 mg Documented by: Sodium Bicarbonate (Sodium Bicarbonate) 650 mg PO BID [facility] Sodium Chloride (Saline Flush) 10 ml FLUSH ASDIRECTED PRN PRN Reason: Keep Vein Open Last Admin: 09/07/20 14:50 Dose: 10 ml Documented by: Discontinued Medications Aspirin (Aspirin) 325 mg PO DAILY [facility] Dextrose/Water (Dextrose 50% In Water) 50 ml IV ASDIRECTED PRN PRN Reason: Hypoglycemia Dextrose/Water (Dextrose 50% In Water) 50 ml IV ASDIRECTED PRN PRN Reason: Hypoglycemia Glucagon (Glucagen) 1 mg IM ASDIRECTED PRN PRN Reason: Hypoglycemia Glucagon (Glucagen) 1 mg IM ASDIRECTED PRN PRN Reason: Hypoglycemia Insulin Glargine (Lantus) 30 unit SUBCUT BID [facility] Last Admin: 09/07/20 21:35 Dose: Not Given Documented by: Insulin Human Lispro (Humalog) 0 unit SUBCUT QIDACANDBED [facility]; Protocol Last Admin: 09/07/20 21:33 Dose: Not Given Documented by: Insulin Human Lispro (Humalog) 0 unit SUBCUT WITHMEALSANDBED [facility]; Protocol Lactulose (Chronulac) 200 gm RECTAL Q4H [facility] Last Admin: 09/07/20 15:53 Dose: Not Given Documented by: Lactulose (Cephulac) 30 gm PO Q6HR [facility] Last Admin: 09/07/20 15:54 Dose: Not Given Documented by: Lactulose (Cephulac) Confirm Administered Dose 60 gm .ROUTE .STK-MED ONE Stop: 09/07/20 13:47 Last Admin: 09/07/20 14:28 Dose: Not Given Documented by: Lactulose (Cephulac) Confirm Administered Dose 20 gm .ROUTE .STK-MED ONE Stop: 09/09/20 04:51 Last Admin: 09/09/20 05:59 Dose: Not Given Documented by: Lorazepam (Ativan) Confirm Administered Dose 2 mg .ROUTE .STK-MED ONE Stop: 09/07/20 10:06 Last Admin: 09/07/20 13:31 Dose: Not Given Documented by: Lorazepam (Ativan) 2 mg IVPUSH ONETIME ONE Stop: 09/07/20 10:08 Last Admin: 09/07/20 10:08 Dose: 2 mg Documented by: Lorazepam (Ativan) 0.5 mg IVPUSH ONETIME ONE Stop: 09/07/20 16:18 Last Admin: 09/07/20 16:24 Dose: 0.5 mg Documented by: Lorazepam (Ativan) 2 mg PO ONETIME ONE Stop: 09/08/20 00:40 Last Admin: 09/08/20 01:54 Dose: Not Given Documented by: Rifaximin (Xifaxan) 550 mg PO BID [facility] - Exam Quality Assessment: DVT Prophylaxis. No: Supplemental Oxygen, Urine Catheter General: Alert, Cooperative, No Acute Distress HEENT: Pupils Equal, Pupils Reactive, EOMI, Mucous Membr. Moist/[place] Neck: Supple, No JVD, No Thyromegaly Lungs: Clear to Auscultation, Normal Respiratory Effort. No: Wheezing Cardiovascular: Regular Rate, Regular Rhythm GI/Abdominal Exam: Normal Bowel Sounds, Soft, Non-Tender, No Distention (Female) Exam: Deferred Back Exam: Normal Inspection Extremities: Normal Inspection, Pedal Edema Skin: Warm, Dry, Intact Neurological: No New Focal Deficit Psy/Mental Status: Alert, Normal Affect, Normal Mood Sepsis Event Note - Evaluation Sepsis Screening Result: No Definite Risk - Focused Exam Vital Signs: Vital Signs Temp Pulse Resp BP Pulse Ox 09/09/20 11:00 36.4 C 64 20 124/90 93 L 09/09/20 07:00 36.3 C 76 20 96/42 L 93 L - Problem List Review Problem List Initiated/Reviewed/Updated: Yes - My Orders Last 24 Hours: My Active Orders 09/08/20 17:57 LORazepam [Ativan] 1 mg PO Q6H PRN 09/09/20 21:00 Sodium Bicarbonate 650 mg PO BID 09/10/20 06:00 BASIC METABOLIC PANEL,BMP [CHEM] Routine - Plan Plan:: This is a 55 Y/O F was admitted recently with acute encephalopathy. she was treated for acute hepatitic encephalopathy with initial ammonia level above 100. By the time of discharge the patient's mental status was significantly better. ammonia level down to the 50s. The patient went home and apparently was doing well in the evening, took a dose of lactulose. Had a bowel movement in the morning. other than the lactulose she took no medications since discharge. The patient had chest x-ray changes compatible with covid-19. Her testing was negative. This is likely a previous infection. This morning ( 09/07/20) the patient was confused.and Imbalance and the patient was agitated. She was given Versed later Ativan. In the emergency room the patient's ammonia level was elevated around 140. Impression and Plan 1. h/o liver cirrhosis, and hepatic encephalopathy. - recent hospital stay. Discharged last night Presented with confusion, agitation Noted to have elevated ammonia level in the emergency room -Will continue lactulose and Rifaximin 2. Acute hepatic encephalopathy: the pt took lactulose but not rifaximin since discharge Ammonia level is high again -Continue with lactulose, rifaximin ( 550 mg BID) -She is awake and taking oral Lactulose 3. Hyperkalemia, Acute renal failure during last admission : resolved and continue to hold ARASH inhibitor 4. Diabetes : her appetite is poor and check blood sugar and use correctional sliding scale for insulin Will hold lantus 5. Chronic hepatitis, likely alcoholic cirrhosis stable 6. Abnormal chest x-ray Compatible with previous COVID pneumonia The patient tested negative For Covid on 03 September tested negative on 05 September as well this is likely an old infection off isolation and not on any abx 7. Elevated d-dimer Likely secondary to previous Covid continue aspirin prophylaxis she does have a h/o GI bleed - follow hgb 8. Metabolic acidosis: This is likely from Diarrhea secondary to lactulose -Will start Sodium Bicarbonate at 650 mg 2 times a day DVT prophylaxis: sq heparin
[2020-09-09] MEDS: Sodium Bicarbonate 650 MG Tab PO SCH ×2 (16:02→20:45)
[2020-09-10] MEDS: Lactulose Soln 10 GM/15 ML 30 ML UD Cup PO SCH ×9 (00:56→22:01)
[2020-09-10] MEDS: Omeprazole 20 MG Cap.CR PO SCH (05:59)
[2020-09-10] MEDS: Heparin Sodium 5,000 Units/ML Vial SUBCUT SCH ×3 (05:59→22:05)
[2020-09-10] MEDS: Levothyroxine 100 MCG Tab PO SCH (05:59)
[2020-09-10] MEDS: Insulin Lispro 100 Units/ML 3 ML Vial SUBCUT SCH ×5 (07:43→22:07)
[2020-09-10 09:16] LABS: ANION GAP 13.9 mEq/L (7-13)
[2020-09-10] MEDS: Sodium Bicarbonate 650 MG Tab PO SCH ×2 (09:21→20:55)
[2020-09-10] MEDS: Rifaximin 550 MG Tab PO SCH ×2 (09:22→20:55)
[2020-09-10] MEDS: Aspirin 81 MG Tab.EC PO SCH (09:22)
--- NOTE | 2020-09-10 10:46 | PCM.PN ---
- General Info Date of Service: 09/10/20 Admission Dx/Problem (Free Text): Admission Diagnosis/Problem Admission Diagnosis/Problem Altered mental status/Hyperammonemia Subjective Update: Pt was seen this morning. Patient is very sleepy though arousable. She is con fused. Significant other in the room and provides review of system. Functional Status: Reports: Pain Controlled - Review of Systems General: Reports: Weakness HEENT: Reports: No Symptoms Pulmonary: Reports: No Symptoms Cardiovascular: Reports: No Symptoms Gastrointestinal: Reports: No Symptoms Genitourinary: Reports: No Symptoms Musculoskeletal: Reports: No Symptoms Skin: Reports: No Symptoms Neurological: Reports: Confusion Psychiatric: Reports: No Symptoms - Patient Data Vitals - Most Recent: Last Vital Signs Temp 97.7 F 09/10/20 09:21 Pulse 76 09/10/20 09:21 Resp 20 09/10/20 09:21 BP 132/74 09/10/20 09:21 Pulse Ox 95 09/10/20 09:21 Weight - Most Recent: 290 lb I&O - Last 24 Hours: Intake & Output 09/09/20 09/10/20 09/10/20 22:59 06:59 14:59 Intake Total 300 Balance 300 Lab Results Last 24 Hours: Laboratory Results - last 24 hr 09/09/20 09/09/20 09/09/20 Range/Units 11:49 17:01 20:53 WBC (5.0-10.0) 10^3/uL RBC (4.2-5.4) 10^6/uL Hgb (12.0-16.0) g/dL Hct (37.0-47.0) % MCV (80-100) fL MCH (27.0-34.0) pg MCHC (33.0-35.0) g/dL Plt Count (150-450) 10^3/uL Sodium (136-145) mmol/L Potassium (3.5-5.1) mmol/L Chloride (98-107) mmol/L Carbon Dioxide (21-32) mmol/L Anion Gap (7-13) mEq/L BUN (7-18) mg/dL Creatinine (0.55-1.02) mg/dL Est Cr Clr Drug Dosing mL/min Estimated GFR (MDRD) BUN/Creatinine Ratio (No establ ref range) Glucose (74-99) mg/dL POC Glucose 150 H 163 H 169 H (70-105) mg/dl Calcium (8.5-10.1) mg/dL Total Bilirubin (0.2-1.0) mg/dL AST (15-37) U/L ALT (14-59) U/L Alkaline Phosphatase (46-116) U/L Ammonia (11-32) umol/L Total Protein (6.4-8.2) g/dL Albumin (3.4-5.0) g/dL Globulin Albumin/Globulin Ratio 09/10/20 09/10/20 09/10/20 Range/Units 07:43 08:40 08:40 WBC 5.9 (5.0-10.0) 10^3/uL RBC 3.21 L (4.2-5.4) 10^6/uL Hgb 11.1 L (12.0-16.0) g/dL Hct 32.3 L (37.0-47.0) % MCV 100.6 H (80-100) fL MCH 34.6 H (27.0-34.0) pg MCHC 34.4 (33.0-35.0) g/dL Plt Count 78 L (150-450) 10^3/uL Sodium (136-145) mmol/L Potassium (3.5-5.1) mmol/L Chloride (98-107) mmol/L Carbon Dioxide (21-32) mmol/L Anion Gap (7-13) mEq/L BUN (7-18) mg/dL Creatinine (0.55-1.02) mg/dL Est Cr Clr Drug Dosing mL/min Estimated GFR (MDRD) BUN/Creatinine Ratio (No establ ref range) Glucose (74-99) mg/dL POC Glucose 140 H (70-105) mg/dl Calcium (8.5-10.1) mg/dL Total Bilirubin (0.2-1.0) mg/dL AST (15-37) U/L ALT (14-59) U/L Alkaline Phosphatase (46-116) U/L Ammonia 125 H (11-32) umol/L Total Protein (6.4-8.2) g/dL Albumin (3.4-5.0) g/dL Globulin Albumin/Globulin Ratio 09/10/20 Range/Units 08:40 WBC (5.0-10.0) 10^3/uL RBC (4.2-5.4) 10^6/uL Hgb (12.0-16.0) g/dL Hct (37.0-47.0) % MCV (80-100) fL MCH (27.0-34.0) pg MCHC (33.0-35.0) g/dL Plt Count (150-450) 10^3/uL Sodium 137 (136-145) mmol/L Potassium 3.9 (3.5-5.1) mmol/L Chloride 108 H (98-107) mmol/L Carbon Dioxide 19 L (21-32) mmol/L Anion Gap 13.9 H (7-13) mEq/L BUN 24 H (7-18) mg/dL Creatinine 1.39 H (0.55-1.02) mg/dL Est Cr Clr Drug Dosing 32.07 mL/min Estimated GFR (MDRD) 39 BUN/Creatinine Ratio 17.3 (No establ ref range) Glucose 170 H (74-99) mg/dL POC Glucose (70-105) mg/dl Calcium 8.2 L (8.5-10.1) mg/dL Total Bilirubin 3.7 H (0.2-1.0) mg/dL AST 359 H (15-37) U/L ALT 99 H (14-59) U/L Alkaline Phosphatase 377 H (46-116) U/L Ammonia (11-32) umol/L Total Protein 6.4 (6.4-8.2) g/dL Albumin 1.7 L (3.4-5.0) g/dL Globulin 4.7 Albumin/Globulin Ratio 0.36 Med Orders - Current: Current Medications Aspirin (Halfprin) 81 mg PO DAILY [facility] Last Admin: 09/10/20 09:22 Dose: 81 mg Documented by: Dextrose/Water (Dextrose 50% In Water) 50 ml IV ASDIRECTED PRN PRN Reason: Hypoglycemia Glucagon (Glucagen) 1 mg IM ASDIRECTED PRN PRN Reason: Hypoglycemia Heparin Sodium (Porcine) (Heparin Sodium) 5,000 units SUBCUT Q8HR [facility] Last Admin: 09/10/20 05:59 Dose: 5,000 units Documented by: Sodium Chloride (Normal Saline) 1,000 mls @ 75 mls/hr IV ASDIRECTED [facility] Last Admin: 09/08/20 03:25 Dose: 75 mls/hr Documented by: Insulin Human Lispro (Humalog) 0 unit SUBCUT WITHMEALSANDBED [facility]; Protocol Last Admin: 09/10/20 07:43 Dose: Not Given Documented by: Lactulose (Cephulac) 45 gm PO Q2H [facility] Levothyroxine Sodium (Synthroid) 100 mcg PO ACBRK [facility] Last Admin: 09/10/20 05:59 Dose: 100 mcg Documented by: Lorazepam (Ativan) 2 mg PO ONETIME PRN PRN Reason: Insomnia Last Admin: 09/08/20 17:01 Dose: 2 mg Documented by: Lorazepam (Ativan) 1 mg PO Q6H PRN PRN Reason: Agitation Last Admin: 09/09/20 21:03 Dose: 1 mg Documented by: Magnesium Oxide (Magnesium Oxide) 500 mg PO BID [facility] Last Admin: 09/10/20 09:21 Dose: 500 mg Documented by: Omeprazole (Omeprazole) 20 mg PO [facility] Last Admin: 09/10/20 05:59 Dose: 20 mg Documented by: Ondansetron HCl (Zofran Odt) 4 mg PO Q6H PRN PRN Reason: nausea, able to take PO Rifaximin (Xifaxan) 550 mg PO BID [facility] Last Admin: 09/10/20 09:22 Dose: 550 mg Documented by: Sodium Bicarbonate (Sodium Bicarbonate) 650 mg PO BID [facility] Last Admin: 09/10/20 09:21 Dose: 650 mg Documented by: Sodium Chloride (Saline Flush) 10 ml FLUSH ASDIRECTED PRN PRN Reason: Keep Vein Open Last Admin: 09/07/20 14:50 Dose: 10 ml Documented by: Discontinued Medications Aspirin (Aspirin) 325 mg PO DAILY [facility] Dextrose/Water (Dextrose 50% In Water) 50 ml IV ASDIRECTED PRN PRN Reason: Hypoglycemia Dextrose/Water (Dextrose 50% In Water) 50 ml IV ASDIRECTED PRN PRN Reason: Hypoglycemia Glucagon (Glucagen) 1 mg IM ASDIRECTED PRN PRN Reason: Hypoglycemia Glucagon (Glucagen) 1 mg IM ASDIRECTED PRN PRN Reason: Hypoglycemia Insulin Glargine (Lantus) 30 unit SUBCUT BID [facility] Last Admin: 09/07/20 21:35 Dose: Not Given Documented by: Insulin Human Lispro (Humalog) 0 unit SUBCUT QIDACANDBED [facility]; Protocol Last Admin: 09/07/20 21:33 Dose: Not Given Documented by: Insulin Human Lispro (Humalog) 0 unit SUBCUT WITHMEALSANDBED [facility]; Protocol Lactulose (Chronulac) 200 gm RECTAL Q4H [facility] Last Admin: 09/07/20 15:53 Dose: Not Given Documented by: Lactulose (Cephulac) 30 gm PO Q6HR [facility] Last Admin: 09/07/20 15:54 Dose: Not Given Documented by: Lactulose (Cephulac) Confirm Administered Dose 60 gm .ROUTE .STK-MED ONE Stop: 09/07/20 13:47 Last Admin: 09/07/20 14:28 Dose: Not Given Documented by: Lactulose (Cephulac) 45 gm PO Q6HR [facility] Last Admin: 09/10/20 05:59 Dose: 45 gm Documented by: Lactulose (Cephulac) Confirm Administered Dose 20 gm .ROUTE .STK-MED ONE Stop: 09/09/20 04:51 Last Admin: 09/09/20 05:59 Dose: Not Given Documented by: Lorazepam (Ativan) Confirm Administered Dose 2 mg .ROUTE .STK-MED ONE Stop: 09/07/20 10:06 Last Admin: 09/07/20 13:31 Dose: Not Given Documented by: Lorazepam (Ativan) 2 mg IVPUSH ONETIME ONE Stop: 09/07/20 10:08 Last Admin: 09/07/20 10:08 Dose: 2 mg Documented by: Lorazepam (Ativan) 0.5 mg IVPUSH ONETIME ONE Stop: 09/07/20 16:18 Last Admin: 09/07/20 16:24 Dose: 0.5 mg Documented by: Lorazepam (Ativan) 2 mg PO ONETIME ONE Stop: 09/08/20 00:40 Last Admin: 09/08/20 01:54 Dose: Not Given Documented by: Rifaximin (Xifaxan) 550 mg PO BID [facility] - Exam General: Lethargic HEENT: Pupils Equal, Pupils Reactive, EOMI, Mucous Membr. Moist/[place] Neck: Supple Lungs: Clear to Auscultation, Normal Respiratory Effort Cardiovascular: Regular Rate, Regular Rhythm GI/Abdominal Exam: Normal Bowel Sounds, Soft, Non-Tender, No Organomegaly, No Distention, No Abnormal Bruit, No Mass, Pelvis Stable Extremities: Non-Tender, Normal Capillary Refill, Pedal Edema Skin: Warm, Dry, Intact Neurological: No New Focal Deficit, Other (Drowsy but arousable) Psy/Mental Status: Depressed Sepsis Event Note - Evaluation Sepsis Screening Result: No Definite Risk - Focused Exam Vital Signs: Vital Signs Temp Pulse Resp BP Pulse Ox 09/10/20 09:21 97.7 F 76 20 132/74 95 09/10/20 03:00 98.8 F 92 20 108/60 93 L 09/09/20 23:00 98.1 F 76 18 134/61 93 L - Problem List Review Problem List Initiated/Reviewed/Updated: Yes - My Orders Last 24 Hours: My Active Orders 09/10/20 10:15 Lactulose [Cephulac] 45 gm PO Q2H - Plan Plan:: This is a 55 Y/O F was admitted recently with acute encephalopathy who presented with worsening confusion, gait imbalance and elevated ammonia level. The patient had chest x-ray changes compatible with covid-19. Her testing was ne gative. This is likely a previous infection. Acute hypoxemic respiratory failure impression and Plan Liver cirrhosis Acute hepatic encephalopathy Be more aggressive with lactulose. Will dose every 2 hourly continue altered mental status resolved. Continue rifaximin Obtain ultrasound to evaluate for ascites and right upper quadrant We will consider treating empirically for SBP Obtain urinalysis and stool for occult blood Avoid benzodiazepines at this will worsen encephalopathy Hyperkalemia, Acute renal failure during last admission : resolved and continue to hold ARASH inhibitor Diabetes type II: her appetite is poor and check blood sugar and use correctional sliding scale for insulin -Continue to hold lantus Abnormal chest x-ray Compatible with previous COVID pneumonia The patient tested negative For Covid on 03 September tested negative on 05 September as well this is likely an old infection off isolation and not on any abx Elevated d-dimer Likely secondary to previous Covid -continue aspirin prophylaxis she does have a h/o GI bleed - follow hgb Metabolic acidosis: This is likely from Diarrhea secondary to lactulose -Continue Sodium Bicarbonate at 650 mg 2 times a day DVT prophylaxis: sq heparin
[2020-09-10] MEDS ORDERED: Furosemide 20 MG/2 ML VIAL IVPUSH ONE (11:30)
--- NOTE | 2020-09-10 15:24 | US ---
EXAMINATION: Abdomen Ltd SEX: Female AGE: 55 years CLINICAL HISTORY: 55-year-old hypertensive obesity diabetic female with HEPATIC ENCEPHALOPATHY. Ascites? Reported on CT exam 03 September 2020 to have "cirrhosis; coronary artery disease; and atypical viral pneumonia". Interpretation: Technically limited exam reveals no sign of ascites or pleural effusion. Pancreas obscured by midepigastric gas. Liver only fractionally visualized. Sign of discrete intrahepatic mass or abnormal dilatation of the intra or extrahepatic biliary ducts.
[2020-09-10] MEDS ORDERED: Lactulose Soln 10 GM/15 ML 30 ML UD Cup ONE (21:21)
[2020-09-10] MEDS ORDERED: Potassium Chloride 10 MEQ Tab.ER PO ONE (21:46)
[2020-09-11] MEDS: Lactulose Soln 10 GM/15 ML 30 ML UD Cup PO SCH ×9 (00:12→16:55)
[2020-09-11] MEDS: Heparin Sodium 5,000 Units/ML Vial SUBCUT SCH ×2 (06:19→15:48)
[2020-09-11] MEDS: Omeprazole 20 MG Cap.CR PO SCH (06:20)
[2020-09-11] MEDS: Levothyroxine 100 MCG Tab PO SCH (06:20)
[2020-09-11 07:50] LABS: ANION GAP 15.2 mEq/L (7-13)
[2020-09-11] MEDS: Insulin Lispro 100 Units/ML 3 ML Vial SUBCUT SCH ×2 (09:40→11:57)
[2020-09-11] MEDS: Aspirin 81 MG Tab.EC PO SCH (10:36)
[2020-09-11] MEDS: Rifaximin 550 MG Tab PO SCH (10:37)
[2020-09-11] MEDS: Sodium Bicarbonate 650 MG Tab PO SCH (10:37)
--- NOTE | 2020-09-11 11:54 | CT ---
EXAMINATION: Head wo Cont SEX: Female AGE: 55 years CLINICAL HISTORY: 55-year-old hypertensive diabetic female with cirrhosis, hepatic encephalopathy and agitated mental status. No known trauma. Scan technique: Volume acquisition of data unenhanced CT scan of the head and brain obtained with patient lying supine on the Siemens multislice scanner [place], [place]. All data archived in the PACS system for storage, reformatting axial/sagittal/coronal planes, study. Comparison 2012. Interpretation: (Motion artifact this agitated patient) 1. Uniformly thick bony calvarium. Symmetric clear pneumatization of the paranasal and mastoid sinuses. 2. Cervical cortical atrophy pattern symmetric with underlying mirror-image normal ventricles. 3. Scattered tiny foci of decreased attenuation periventricular white matter consistent with microvascular ischemia (infarcts). No cerebral edema or signs of acute intracerebral/intraventricular/subarachnoid bleed. 4. No supratentorial or posterior fossa mass lesion. 5. Cerebellum and brainstem unremarkable. 6. No abnormal extracerebral/intracranial epidural or subdural fluid collections (hematoma or hygroma). CONCLUSION: Multi-infarct ischemic changes. No sign of intracranial mass, cerebral edema or bleed.
[2020-09-11] MEDS ORDERED: cefTRIAXone 2 GM in Sodium Chloride 0.9% 100 ML IV SCH (12:00)
--- NOTE | 2020-09-11 12:35 | PCM.PN ---
- General Info Date of Service: 09/11/20 Admission Dx/Problem (Free Text): Admission Diagnosis/Problem Admission Diagnosis/Problem Altered mental status/Hyperammonemia Subjective Update: Patient was seen this morning. Patient is very sleepy though arousable. She r emains confused, lethargic and drowsy. Significant other in the room and provides review of system. Functional Status: Reports: Pain Controlled - Review of Systems General: Reports: Malaise HEENT: Reports: No Symptoms Pulmonary: Reports: No Symptoms Cardiovascular: Reports: No Symptoms Gastrointestinal: Reports: No Symptoms Genitourinary: Reports: No Symptoms Musculoskeletal: Reports: No Symptoms Skin: Reports: No Symptoms Neurological: Reports: Confusion, Weakness Psychiatric: Reports: No Symptoms - Patient Data Vitals - Most Recent: Last Vital Signs Temp 97.6 F 09/11/20 08:20 Pulse 86 09/11/20 08:20 Resp 20 09/11/20 08:20 BP 138/72 09/11/20 08:20 Pulse Ox 95 09/11/20 11:00 Weight - Most Recent: 290 lb I&O - Last 24 Hours: Intake & Output 09/10/20 09/11/20 09/11/20 22:59 06:59 14:59 Intake Total 860 100 Output Total 360 Balance 500 100 Lab Results Last 24 Hours: Laboratory Results - last 24 hr 09/10/20 09/10/20 09/10/20 Range/Units 11:52 14:30 16:35 Sodium (136-145) mmol/L Potassium (3.5-5.1) mmol/L Chloride (98-107) mmol/L Carbon Dioxide (21-32) mmol/L Anion Gap (7-13) mEq/L BUN (7-18) mg/dL Creatinine (0.55-1.02) mg/dL Est Cr Clr Drug Dosing mL/min Estimated GFR (MDRD) BUN/Creatinine Ratio (No establ ref range) Glucose (74-99) mg/dL POC Glucose 171 H 189 H (70-105) mg/dl Calcium (8.5-10.1) mg/dL Total Bilirubin (0.2-1.0) mg/dL AST (15-37) U/L ALT (14-59) U/L Alkaline Phosphatase (46-116) U/L Total Protein (6.4-8.2) g/dL Albumin (3.4-5.0) g/dL Globulin Albumin/Globulin Ratio TSH, Ultra Sensitive (0.36-3.74) uIU/mL Urine Color Dark yellow (YELLOW) Urine Appearance Slightly cloudy (CLEAR) Urine pH 5.5 (5.0-9.0) Ur Specific [place] 1.020 (1.005-1.030) Urine Protein Negative (NEGATIVE) Urine Glucose (UA) Negative (NEGATIVE) Urine Ketones Negative (NEGATIVE) Urine Occult Blood Trace-intact H (NEGATIVE) Urine Nitrite Negative (NEGATIVE) Urine Bilirubin Negative (NEGATIVE) Urine Urobilinogen 0.2 (0.2-1.0) mg/dL Ur Leukocyte Esterase Negative (NEGATIVE) U Hyaline Cast (Auto) Few Urine RBC 5-10 H /HPF Urine WBC 0-5 (0-5/HPF) /HPF Ur Epithelial Cells Few (NOT SEEN) /HPF Urine Bacteria Rare (0-FEW/HPF) /HPF Urine Mucus Few H (NOT SEEN) /LPF 09/10/20 09/11/20 09/11/20 Range/Units 21:52 07:02 07:02 Sodium 143 (136-145) mmol/L Potassium 4.2 (3.5-5.1) mmol/L Chloride 113 H (98-107) mmol/L Carbon Dioxide 19 L (21-32) mmol/L Anion Gap 15.2 H (7-13) mEq/L BUN 25 H (7-18) mg/dL Creatinine 1.46 H (0.55-1.02) mg/dL Est Cr Clr Drug Dosing 30.54 mL/min Estimated GFR (MDRD) 37 BUN/Creatinine Ratio 17.1 (No establ ref range) Glucose 166 H (74-99) mg/dL POC Glucose 189 H (70-105) mg/dl Calcium 8.6 (8.5-10.1) mg/dL Total Bilirubin 4.0 H (0.2-1.0) mg/dL AST 306 H (15-37) U/L ALT 101 H (14-59) U/L Alkaline Phosphatase 390 H (46-116) U/L Total Protein 6.3 L (6.4-8.2) g/dL Albumin 1.8 L (3.4-5.0) g/dL Globulin 4.5 Albumin/Globulin Ratio 0.40 TSH, Ultra Sensitive 2.77 (0.36-3.74) uIU/mL Urine Color (YELLOW) Urine Appearance (CLEAR) Urine pH (5.0-9.0) Ur Specific [place] (1.005-1.030) Urine Protein (NEGATIVE) Urine Glucose (UA) (NEGATIVE) Urine Ketones (NEGATIVE) Urine Occult Blood (NEGATIVE) Urine Nitrite (NEGATIVE) Urine Bilirubin (NEGATIVE) Urine Urobilinogen (0.2-1.0) mg/dL Ur Leukocyte Esterase (NEGATIVE) U Hyaline Cast (Auto) Urine RBC /HPF Urine WBC (0-5/HPF) /HPF Ur Epithelial Cells (NOT SEEN) /HPF Urine Bacteria (0-FEW/HPF) /HPF Urine Mucus (NOT SEEN) /LPF 09/11/20 09/11/20 Range/Units 08:00 11:42 Sodium (136-145) mmol/L Potassium (3.5-5.1) mmol/L Chloride (98-107) mmol/L Carbon Dioxide (21-32) mmol/L Anion Gap (7-13) mEq/L BUN (7-18) mg/dL Creatinine (0.55-1.02) mg/dL Est Cr Clr Drug Dosing mL/min Estimated GFR (MDRD) BUN/Creatinine Ratio (No establ ref range) Glucose (74-99) mg/dL POC Glucose 153 H 161 H (70-105) mg/dl Calcium (8.5-10.1) mg/dL Total Bilirubin (0.2-1.0) mg/dL AST (15-37) U/L ALT (14-59) U/L Alkaline Phosphatase (46-116) U/L Total Protein (6.4-8.2) g/dL Albumin (3.4-5.0) g/dL Globulin Albumin/Globulin Ratio TSH, Ultra Sensitive (0.36-3.74) uIU/mL Urine Color (YELLOW) Urine Appearance (CLEAR) Urine pH (5.0-9.0) Ur Specific [place] (1.005-1.030) Urine Protein (NEGATIVE) Urine Glucose (UA) (NEGATIVE) Urine Ketones (NEGATIVE) Urine Occult Blood (NEGATIVE) Urine Nitrite (NEGATIVE) Urine Bilirubin (NEGATIVE) Urine Urobilinogen (0.2-1.0) mg/dL Ur Leukocyte Esterase (NEGATIVE) U Hyaline Cast (Auto) Urine RBC /HPF Urine WBC (0-5/HPF) /HPF Ur Epithelial Cells (NOT SEEN) /HPF Urine Bacteria (0-FEW/HPF) /HPF Urine Mucus (NOT SEEN) /LPF Telly Results Last 24 Hours: Microbiology 09/10/20 14:30 Urine Culture - Preliminary Urine, Catheterized NO GROWTH AFTER 1 DAY 09/10/20 14:57 Stool Occult Blood (TELLY) - Final Stool / Feces Med Orders - Current: Current Medications Aspirin (Halfprin) 81 mg PO DAILY [facility] Last Admin: 09/11/20 10:36 Dose: Not Given Documented by: Dextrose/Water (Dextrose 50% In Water) 50 ml IV ASDIRECTED PRN PRN Reason: Hypoglycemia Glucagon (Glucagen) 1 mg IM ASDIRECTED PRN PRN Reason: Hypoglycemia Heparin Sodium (Porcine) (Heparin Sodium) 5,000 units SUBCUT Q8HR [facility] Last Admin: 09/11/20 06:19 Dose: 5,000 units Documented by: Insulin Human Lispro (Humalog) 0 unit SUBCUT WITHMEALSANDBED [facility]; Protocol Last Admin: 09/11/20 11:57 Dose: 1 unit Documented by: Lactulose (Cephulac) 45 gm PO Q2H [facility] Last Admin: 09/11/20 11:52 Dose: Not Given Documented by: Levothyroxine Sodium (Synthroid) 100 mcg PO [facility] Last Admin: 09/11/20 06:20 Dose: 100 mcg Documented by: Magnesium Oxide (Magnesium Oxide) 500 mg PO BID [facility] Last Admin: 09/11/20 10:36 Dose: Not Given Documented by: Omeprazole (Omeprazole) 20 mg PO [facility] Last Admin: 09/11/20 06:20 Dose: 20 mg Documented by: Ondansetron HCl (Zofran Odt) 4 mg PO Q6H PRN PRN Reason: nausea, able to take PO Rifaximin (Xifaxan) 550 mg PO BID [facility] Last Admin: 09/11/20 10:37 Dose: Not Given Documented by: Sodium Bicarbonate (Sodium Bicarbonate) 650 mg PO BID [facility] Last Admin: 09/11/20 10:37 Dose: Not Given Documented by: Sodium Chloride (Saline Flush) 10 ml FLUSH ASDIRECTED PRN PRN Reason: Keep Vein Open Last Admin: 09/07/20 14:50 Dose: 10 ml Documented by: Discontinued Medications Aspirin (Aspirin) 325 mg PO DAILY [facility] Dextrose/Water (Dextrose 50% In Water) 50 ml IV ASDIRECTED PRN PRN Reason: Hypoglycemia Dextrose/Water (Dextrose 50% In Water) 50 ml IV ASDIRECTED PRN PRN Reason: Hypoglycemia Furosemide (Lasix) 20 mg IVPUSH NOW ONE Stop: 09/10/20 11:31 Last Admin: 09/10/20 11:39 Dose: 20 mg Documented by: Glucagon (Glucagen) 1 mg IM ASDIRECTED PRN PRN Reason: Hypoglycemia Glucagon (Glucagen) 1 mg IM ASDIRECTED PRN PRN Reason: Hypoglycemia Sodium Chloride (Normal Saline) 1,000 mls @ 75 mls/hr IV ASDIRECTED [facility] Last Admin: 09/08/20 03:25 Dose: 75 mls/hr Documented by: Insulin Glargine (Lantus) 30 unit SUBCUT BID [facility] Last Admin: 09/07/20 21:35 Dose: Not Given Documented by: Insulin Human Lispro (Humalog) 0 unit SUBCUT QIDACANDBED [facility]; Protocol Last Admin: 09/07/20 21:33 Dose: Not Given Documented by: Insulin Human Lispro (Humalog) 0 unit SUBCUT WITHMEALSANDBED [facility]; Protocol Lactulose (Chronulac) 200 gm RECTAL Q4H [facility] Last Admin: 09/07/20 15:53 Dose: Not Given Documented by: Lactulose (Cephulac) 30 gm PO Q6HR [facility] Last Admin: 09/07/20 15:54 Dose: Not Given Documented by: Lactulose (Cephulac) Confirm Administered Dose 60 gm .ROUTE .STK-MED ONE Stop: 09/07/20 13:47 Last Admin: 09/07/20 14:28 Dose: Not Given Documented by: Lactulose (Cephulac) 45 gm PO Q6HR [facility] Last Admin: 09/10/20 05:59 Dose: 45 gm Documented by: Lactulose (Cephulac) Confirm Administered Dose 20 gm .ROUTE .STK-MED ONE Stop: 09/09/20 04:51 Last Admin: 09/09/20 05:59 Dose: Not Given Documented by: Lactulose (Cephulac) Confirm Administered Dose 20 gm .ROUTE .STK-MED ONE Stop: 09/10/20 21:22 Last Admin: 09/10/20 21:49 Dose: Not Given Documented by: Lorazepam (Ativan) Confirm Administered Dose 2 mg .ROUTE .STK-MED ONE Stop: 09/07/20 10:06 Last Admin: 09/07/20 13:31 Dose: Not Given Documented by: Lorazepam (Ativan) 2 mg IVPUSH ONETIME ONE Stop: 09/07/20 10:08 Last Admin: 09/07/20 10:08 Dose: 2 mg Documented by: Lorazepam (Ativan) 0.5 mg IVPUSH ONETIME ONE Stop: 09/07/20 16:18 Last Admin: 09/07/20 16:24 Dose: 0.5 mg Documented by: Lorazepam (Ativan) 2 mg PO ONETIME ONE Stop: 09/08/20 00:40 Last Admin: 09/08/20 01:54 Dose: Not Given Documented by: Lorazepam (Ativan) 2 mg PO ONETIME PRN PRN Reason: Insomnia Last Admin: 09/08/20 17:01 Dose: 2 mg Documented by: Lorazepam (Ativan) 1 mg PO Q6H PRN PRN Reason: Agitation Last Admin: 09/09/20 21:03 Dose: 1 mg Documented by: Potassium Chloride (Klor-Con 10) 40 meq PO ONETIME ONE Stop: 09/10/20 21:47 Last Admin: 09/10/20 21:58 Dose: 40 meq Documented by: Rifaximin (Xifaxan) 550 mg PO BID [facility] - Exam General: Alert HEENT: Pupils Equal, Pupils Reactive, EOMI, Mucous Membr. Moist/[place] Neck: Supple Lungs: Clear to Auscultation, Normal Respiratory Effort Cardiovascular: Regular Rate, Regular Rhythm GI/Abdominal Exam: Normal Bowel Sounds, Soft, Non-Tender, No Organomegaly, No Distention, No Abnormal Bruit, No Mass, Pelvis Stable Back Exam: Normal Inspection, Full Range of Motion Extremities: Pedal Edema Skin: Warm, Dry, Intact Neurological: No New Focal Deficit Psy/Mental Status: Alert Sepsis Event Note - Evaluation Sepsis Screening Result: No Definite Risk - Focused Exam Vital Signs: Vital Signs Temp Pulse Resp BP Pulse Ox Pulse Ox 09/11/20 11:00 95 09/11/20 08:20 97.6 F 86 20 138/72 95 09/11/20 04:20 98.8 F 89 20 128/68 95 09/11/20 00:37 98.6 F 93 20 134/58 L 99 - Problem List Review Problem List Initiated/Reviewed/Updated: Yes - My Orders Last 24 Hours: My Active Orders 09/10/20 13:00 Insert Arnett Catheter [Insert Urinary Catheter] [OM.PC] Q24H 09/10/20 14:30 CULTURE URINE [RM] Routine 09/11/20 12:25 Gastrointestinal Tube Mgmt [RC] ASDIRECTED Abdomen 1V Upright [CR] Stat Chest 1V Frontal [CR] Stat NG [Nasogastric Orogastric Tube Insertion] [OM.PC] Routine - Plan Plan:: 55-year-old female who was admitted recently with acute encephalopathy who presented with worsening confusion, gait imbalance and elevated ammonia level. The patient had chest x-ray changes compatible with covid-19. Her testing was negative. This is likely a previous infection. impression and Plan Liver cirrhosis Acute hepatic encephalopathy Obtained CT scan which showed chronic infarcts but no acute changes Be more aggressive with lactulose. Pass NG tube and dose every 2 hourly until altered mental status resolved. Continue rifaximin Ultrasound to evaluate for ascites and right upper quadrant was negative Will treat empirically for SBP with ceftriaxone 2g daily for 5 days Urinalysis and stool for occult blood negative Avoid benzodiazepines at this will worsen encephalopathy Hyperkalemia Resolved Acute renal failure Continues from last admission Renal function slowly improving Continue to hold ARASH inhibitor Diabetes type II: her appetite is poor and check blood sugar and use correctional sliding scale for insulin -Continue to hold lantus Abnormal chest x-ray Compatible with previous COVID pneumonia The patient tested negative For Covid on 03 September tested negative on 05 September as well this is likely an old infection off isolation and not on any abx Elevated d-dimer Likely secondary to previous Covid -continue aspirin prophylaxis she does have a h/o GI bleed - follow hgb Metabolic acidosis: This is likely from Diarrhea secondary to lactulose -Continue Sodium Bicarbonate at 650 mg 2 times a day DVT prophylaxis: sq heparin
--- NOTE | 2020-09-11 15:19 | CR ---
EXAMINATION: Chest 1V Frontal SEX: Female AGE: 55 years CLINICAL HISTORY: Identify if the tube is coiled. INTERPRETATION: Single (semierect patient), rotated AP portable film confirms midline TUBE, presumably in the esophagus, that passes below the left hemidiaphragm (tube tip identified margin of film, in the LUQ. No tube coiling identified in the chest or upper abdomen (hypopharynx/cervical esophagus not visualized).
[2020-09-11 16:36] VITALS: BP 152/61; PULSE 85
--- NOTE | 2020-09-11 16:36 | PCM.DCSUM1 ---
Discharge Summary - Hospital Course Free Text/Narrative:: Patient is a 55-year-old female with a medical history of hepatic cirrhosis, type 2 diabetes mellitus, hypothyroidism who presented with altered mental status and was found to have elevated ammonia level of 146. Patient had just been discharged the day before after being admitted overnight for similar presentation and responding quickly to lactulose. This time, patient was treated again with lactulose and rifaximin with only a transient improvement of her mental status. UA has been negative, ultrasound of abdomen did not show ascites, stool for occult blood was negative and CT head did not show acute intracranial process. Patient had initially presented with chest pain on 09/03/2020 and was found to have pulmonary opacification on CT scan concerning for a viral process. She received a dose of dexamethasone. She had a transient and mild elevation of troponin of 0.059 [0.056 over limit of normal] and her EKG was negative for acute ST changes. She has since been tested for COVID-19 3 times, on 09/03, 09/05, 09/07/2020: All of which have been negative. She has had no respiratory symptoms or fever and there has been no known exposures. It is possible that patient is having hyperammonemia due to receiving steroid. She has made no sustained improvement in her mental status despite aggressive therapy with lactulose. Patient will be transferred to [facility] in [place] for further evaluation and care. Diagnosis: Stroke: No - Discharge Data Discharge Date: 09/11/20 Discharge Disposition: DC/Tfer to Acute Hospital 02 Condition: Good - Referral to Home Health Primary Care Physician: PCP Unobtainable - Discharge Plan *PRESCRIPTION DRUG MONITORING PROGRAM REVIEWED*: Not Applicable *COPY OF PRESCRIPTION DRUG MONITORING REPORT IN PATIENT RAY: Not Applicable Home Medications: Home Meds Albuterol [Proventil Neb Soln] 2.5 mg NEB Q4H PRN 02/03/15 [History] Levothyroxine [Synthroid] 100 mcg PO DAILY 02/03/15 [History] Magnesium Oxide 400 mg PO BID 02/03/15 [History] Insulin Glarg,Human.Rec.Analog [Lantus Solostar] 62 unit SUBCUT BID 03/06/15 [History] Fluticasone Furoate [Flonase Sensimist] 1 ml NS DAILY PRN 04/04/17 [History] Benzonatate 200 mg PO TID PRN 09/04/20 [History] Lactulose [Constulose] 60 ml PO QID 09/04/20 [History] Omeprazole 20 mg PO PCBREAKFAST 09/04/20 [History] Rifaximin [Xifaxan] 550 mg PO BID 09/04/20 [History] Aspirin 325 mg PO DAILY #28 tablet 09/06/20 [Rx] Forms: ED Department Discharge Referrals: PCP,Unobtain [Primary Care Provider] - - Discharge Summary/Plan Comment DC Time >30 min.: Yes - General Info Date of Service: 09/11/20 Admission Dx/Problem (Free Text: Admission Diagnosis/Problem Admission Diagnosis/Problem Altered mental status/Hyperammonemia Subjective Update: Patient was seen this morning. Patient is very sleepy though arousable. She remains confused, lethargic and drowsy. - Review of Systems General: Reports: Malaise HEENT: Reports: No Symptoms Pulmonary: Reports: No Symptoms Cardiovascular: Reports: No Symptoms Gastrointestinal: Reports: No Symptoms Genitourinary: Reports: No Symptoms Musculoskeletal: Reports: No Symptoms Skin: Reports: No Symptoms Neurological: Reports: No Symptoms Psychiatric: Reports: No Symptoms - Patient Data Vitals - Most Recent: Last Vital Signs Temp 97.7 F 09/11/20 12:00 Pulse 84 09/11/20 12:00 Resp 20 09/11/20 12:00 BP 136/71 09/11/20 12:00 Pulse Ox 95 09/11/20 12:00 Weight - Most Recent: 290 lb I&O - Last 24 hours: Intake & Output 09/11/20 09/11/20 09/11/20 06:59 14:59 22:59 Intake Total 100 Balance 100 Lab Results - Last 24 hrs: Laboratory Results - last 24 hr 09/10/20 09/10/20 09/11/20 Range/Units 16:35 21:52 07:02 Sodium 143 (136-145) mmol/L Potassium 4.2 (3.5-5.1) mmol/L Chloride 113 H (98-107) mmol/L Carbon Dioxide 19 L (21-32) mmol/L Anion Gap 15.2 H (7-13) mEq/L BUN 25 H (7-18) mg/dL Creatinine 1.46 H (0.55-1.02) mg/dL Est Cr Clr Drug Dosing 30.54 mL/min Estimated GFR (MDRD) 37 BUN/Creatinine Ratio 17.1 (No establ ref range) Glucose 166 H (74-99) mg/dL POC Glucose 189 H 189 H (70-105) mg/dl Calcium 8.6 (8.5-10.1) mg/dL Total Bilirubin 4.0 H (0.2-1.0) mg/dL AST 306 H (15-37) U/L ALT 101 H (14-59) U/L Alkaline Phosphatase 390 H (46-116) U/L Total Protein 6.3 L (6.4-8.2) g/dL Albumin 1.8 L (3.4-5.0) g/dL Globulin 4.5 Albumin/Globulin Ratio 0.40 TSH, Ultra Sensitive (0.36-3.74) uIU/mL 09/11/20 09/11/20 09/11/20 Range/Units 07:02 08:00 11:42 Sodium (136-145) mmol/L Potassium (3.5-5.1) mmol/L Chloride (98-107) mmol/L Carbon Dioxide (21-32) mmol/L Anion Gap (7-13) mEq/L BUN (7-18) mg/dL Creatinine (0.55-1.02) mg/dL Est Cr Clr Drug Dosing mL/min Estimated GFR (MDRD) BUN/Creatinine Ratio (No establ ref range) Glucose (74-99) mg/dL POC Glucose 153 H 161 H (70-105) mg/dl Calcium (8.5-10.1) mg/dL Total Bilirubin (0.2-1.0) mg/dL AST (15-37) U/L ALT (14-59) U/L Alkaline Phosphatase (46-116) U/L Total Protein (6.4-8.2) g/dL Albumin (3.4-5.0) g/dL Globulin Albumin/Globulin Ratio TSH, Ultra Sensitive 2.77 (0.36-3.74) uIU/mL HALIE Results - Last 24 hrs: Microbiology 09/10/20 14:30 Urine Culture - Preliminary Urine, Catheterized NO GROWTH AFTER 1 DAY 09/10/20 14:57 Stool Occult Blood (HALIE) - Final Stool / Feces Med Orders - Current: Current Medications Aspirin (Halfprin) 81 mg PO DAILY [facility] Last Admin: 09/11/20 10:36 Dose: Not Given Documented by: Dextrose/Water (Dextrose 50% In Water) 50 ml IV ASDIRECTED PRN PRN Reason: Hypoglycemia Glucagon (Glucagen) 1 mg IM ASDIRECTED PRN PRN Reason: Hypoglycemia Heparin Sodium (Porcine) (Heparin Sodium) 5,000 units SUBCUT Q8HR [facility] Last Admin: 09/11/20 15:48 Dose: 5,000 units Documented by: Ceftriaxone Sodium 2 gm/ (Sodium Chloride) 100 mls @ 200 mls/hr IV Q24H [facility] Stop: 09/15/20 12:29 Last Infusion: 09/11/20 16:24 Dose: Infused Documented by: Insulin Human Lispro (Humalog) 0 unit SUBCUT WITHMEALSANDBED [facility]; Protocol Last Admin: 09/11/20 11:57 Dose: 1 unit Documented by: Lactulose (Cephulac) 45 gm PO Q2H [facility] Last Admin: 09/11/20 15:49 Dose: 45 gm Documented by: Levothyroxine Sodium (Synthroid) 100 mcg PO [facility] Last Admin: 09/11/20 06:20 Dose: 100 mcg Documented by: Magnesium Oxide (Magnesium Oxide) 500 mg PO BID [facility] Last Admin: 09/11/20 10:36 Dose: Not Given Documented by: Omeprazole ([facility]razole) [facility] Last Admin: 09/11/20 06:20 Dose: 20 mg Documented by: Ondansetron HCl (Zofran Odt) 4 mg PO Q6H PRN PRN Reason: nausea, able to take PO Rifaximin (Xifaxan) 550 mg PO BID [facility] Last Admin: 09/11/20 10:37 Dose: Not Given Documented by: Sodium Bicarbonate (Sodium Bicarbonate) 650 mg PO BID [facility] Last Admin: 09/11/20 10:37 Dose: Not Given Documented by: Sodium Chloride (Saline Flush) 10 ml FLUSH ASDIRECTED PRN PRN Reason: Keep Vein Open Last Admin: 09/07/20 14:50 Dose: 10 ml Documented by: Discontinued Medications Aspirin (Aspirin) 325 mg PO DAILY [facility] Dextrose/Water (Dextrose 50% In Water) 50 ml IV ASDIRECTED PRN PRN Reason: Hypoglycemia Dextrose/Water (Dextrose 50% In Water) 50 ml IV ASDIRECTED PRN PRN Reason: Hypoglycemia Furosemide (Lasix) 20 mg IVPUSH NOW ONE Stop: 09/10/20 11:31 Last Admin: 09/10/20 11:39 Dose: 20 mg Documented by: Glucagon (Glucagen) 1 mg IM ASDIRECTED PRN PRN Reason: Hypoglycemia Glucagon (Glucagen) 1 mg IM ASDIRECTED PRN PRN Reason: Hypoglycemia Sodium Chloride (Normal Saline) 1,000 mls @ 75 mls/hr IV ASDIRECTED [facility] Last Admin: 09/08/20 03:25 Dose: 75 mls/hr Documented by: Insulin Glargine (Lantus) 30 unit SUBCUT BID [facility] Last Admin: 09/07/20 21:35 Dose: Not Given Documented by: Insulin Human Lispro (Humalog) 0 unit SUBCUT QIDACANDBED [facility]; Protocol Last Admin: 09/07/20 21:33 Dose: Not Given Documented by: Insulin Human Lispro (Humalog) 0 unit SUBCUT WITHMEALSANDBED [facility]; Protocol Lactulose (Chronulac) 200 gm RECTAL Q4H [facility] Last Admin: 09/07/20 15:53 Dose: Not Given Documented by: Lactulose (Cephulac) 30 gm PO Q6HR [facility] Last Admin: 09/07/20 15:54 Dose: Not Given Documented by: Lactulose (Cephulac) Confirm Administered Dose 60 gm .ROUTE .STK-MED ONE Stop: 09/07/20 13:47 Last Admin: 09/07/20 14:28 Dose: Not Given Documented by: Lactulose (Cephulac) 45 gm PO Q6HR [facility] Last Admin: 09/10/20 05:59 Dose: 45 gm Documented by: Lactulose (Cephulac) Confirm Administered Dose 20 gm .ROUTE .STK-MED ONE Stop: 09/09/20 04:51 Last Admin: 09/09/20 05:59 Dose: Not Given Documented by: Lactulose (Cephulac) Confirm Administered Dose 20 gm .ROUTE .STK-MED ONE Stop: 09/10/20 21:22 Last Admin: 09/10/20 21:49 Dose: Not Given Documented by: Lorazepam (Ativan) Confirm Administered Dose 2 mg .ROUTE .STK-MED ONE Stop: 09/07/20 10:06 Last Admin: 09/07/20 13:31 Dose: Not Given Documented by: Lorazepam (Ativan) 2 mg IVPUSH ONETIME ONE Stop: 09/07/20 10:08 Last Admin: 09/07/20 10:08 Dose: 2 mg Documented by: Lorazepam (Ativan) 0.5 mg IVPUSH ONETIME ONE Stop: 09/07/20 16:18 Last Admin: 09/07/20 16:24 Dose: 0.5 mg Documented by: Lorazepam (Ativan) 2 mg PO ONETIME ONE Stop: 09/08/20 00:40 Last Admin: 09/08/20 01:54 Dose: Not Given Documented by: Lorazepam (Ativan) 2 mg PO ONETIME PRN PRN Reason: Insomnia Last Admin: 09/08/20 17:01 Dose: 2 mg Documented by: Lorazepam (Ativan) 1 mg PO Q6H PRN PRN Reason: Agitation Last Admin: 09/09/20 21:03 Dose: 1 mg Documented by: Potassium Chloride (Klor-Con 10) 40 meq PO ONETIME ONE Stop: 09/10/20 21:47 Last Admin: 09/10/20 21:58 Dose: 40 meq Documented by: Rifaximin (Xifaxan) 550 mg PO BID [facility] - Exam General: Reports: Other (Drowsy) HEENT: Reports: Pupils Equal, Pupils Reactive, EOMI, Mucous Membr. Moist/[place] Neck: Reports: Supple Lungs: Reports: Clear to Auscultation, Normal Respiratory Effort Cardiovascular: Reports: Regular Rate, Regular Rhythm GI/Abdominal Exam: Normal Bowel Sounds, Soft, Non-Tender, No Organomegaly, No Distention, No Abnormal Bruit, No Mass, Pelvis Stable Back Exam: Reports: Normal Inspection, Full Range of Motion Extremities: Normal Inspection, Normal Range of Motion, Non-Tender, No Pedal Edema, Normal Capillary Refill Skin: Reports: Warm, Dry, Intact Neurological: Reports: No New Focal Deficit Psy/Mental Status: Reports: Alert, Normal Affect, Normal Mood
== END 2020-09-11 17:30 | DRG 441 ==
LOC: DL.ED 09:48 → DL.MS 11:27 → OBSVTOIN 12:49
PROVIDERS: ADMIT Internal Medicine; ATTEND Internal Medicine
PROC: 0D9670Z Drainage of Stomach with Drainage Device, Via Natural or Artificial Opening (ICD-10-PCS; principal; 2020-09-11)
DX: K72.00 Acute and subacute hepatic failure without coma (principal); J96.01 Acute respiratory failure with hypoxia; E87.2 Acidosis; E87.6 Hypokalemia; Z68.43 Body mass index [BMI] 50.0-59.9, adult; R79.89 Other specified abnormal findings of blood chemistry; N17.9 Acute kidney failure, unspecified; E72.20 Disorder of urea cycle metabolism, unspecified; H54.7 Unspecified visual loss; I10 Essential (primary) hypertension; J45.909 Unspecified asthma, uncomplicated; J43.9 Emphysema, unspecified; K80.20 Calculus of gallbladder without cholecystitis without obstruction; K74.60 Unspecified cirrhosis of liver; K21.9 Gastro-esophageal reflux disease without esophagitis; M19.90 Unspecified osteoarthritis, unspecified site; M54.9 Dorsalgia, unspecified; G89.29 Other chronic pain; E11.9 Type 2 diabetes mellitus without complications; E03.9 Hypothyroidism, unspecified; E66.9 Obesity, unspecified; E87.5 Hyperkalemia; K73.9 Chronic hepatitis, unspecified; F32.9 Major depressive disorder, single episode, unspecified; Z20.828 Contact with and (suspected) exposure to other viral communicable diseases; Z79.51 Long term (current) use of inhaled steroids; Z79.890 Hormone replacement therapy; Z79.4 Long term (current) use of insulin; Z79.52 Long term (current) use of systemic steroids; Z79.82 Long term (current) use of aspirin; Z79.899 Other long term (current) drug therapy; Z88.8 Allergy status to other drugs, medicaments and biological substances; Z88.1 Allergy status to other antibiotic agents; Z88.0 Allergy status to penicillin; Z87.440 Personal history of urinary (tract) infections; Z90.49 Acquired absence of other specified parts of digestive tract; Z98.890 Other specified postprocedural states; Z88.6 Allergy status to analgesic agent; T38.0X5A Adverse effect of glucocorticoids and synthetic analogues, initial encounter
CPT/HCPCS: 36415; 80053; 82140; 82150; 83690; 85025; 86140; 87635; 96374; 99285; J2060; 51702; 70450; 71045; 76700; 76705; 80048; 80076; 81001; 82272; 82962; 84443; 85027; 85379; 87086; 96376; 99284; A9270-GY; J0696; J1644; J1815-GY; J1940; J7030; J7050; U0002

== ENCOUNTER 2020-09-28 11:34 | Emergency (ER) | payer MEDICAID ==
--- NOTE | 2020-09-28 11:50 | EDM.PDOC ---
ED HPI GENERAL MEDICAL PROBLEM - General Chief Complaint: Neurological Problem Time Seen by Provider: 09/28/20 12:01 Source of Information: Reports: Patient, EMS, EMS Notes Reviewed, RN, RN Notes Reviewed History Limitations: Reports: No Limitations - History of Present Illness INITIAL COMMENTS - FREE TEXT/NARRATIVE: Patient presents to the ED via EMS for complaints of altered mental status. EMS reports they were called by the patient's son to the patient's home as she was refusing to take her Lactulose and acting "odd." EMS reports she has had multiple episodes over the past month of responding to the patient's home for similar behavior. Per EMS, patient was discharged from [facility] 5 days prior for hepatic encephalopathy. Upon interview the patient is lethargic and unable to respond to orientation questions. - Related Data Allergies Allergy/AdvReac Type Severity Reaction Status Date / Time aspirin Allergy Cannot Verified 09/07/20 12:10 Remember atorvastatin Allergy Cannot Verified 09/07/20 12:10 Remember cephalexin Allergy Fatigue Verified 09/07/20 12:10 [From Panixine DisperDose] ciprofloxacin Allergy Diarrhea Verified 09/07/20 12:10 docusate [From Senna-S] Allergy Abdominal Verified 09/07/20 12:10 Pain levofloxacin Allergy Dizziness Verified 09/07/20 12:10 Penicillins Allergy Other Verified 09/07/20 12:10 senna [From Senna-S] Allergy Abdominal Verified 09/07/20 12:10 Pain sulfamethoxazole Allergy Shortness Verified 09/07/20 12:10 [From Bactrim] of Breath trimethoprim [From Bactrim] Allergy Shortness Verified 09/07/20 12:10 of Breath another antibiotic Allergy Cannot Uncoded 05/05/20 12:21 Remember Home Meds: Home Meds Albuterol [Proventil Neb Soln] 2.5 mg NEB Q4H PRN 02/03/15 [History] Levothyroxine [Synthroid] 100 mcg PO DAILY 02/03/15 [History] Magnesium Oxide 400 mg PO BID 02/03/15 [History] Insulin Glarg,Human.Rec.Analog [Lantus Solostar] 62 unit SUBCUT BID 03/06/15 [History] Fluticasone Furoate [Flonase Sensimist] 1 ml NS DAILY PRN 04/04/17 [History] Benzonatate 200 mg PO TID PRN 09/04/20 [History] Lactulose [Constulose] 60 ml PO QID 09/04/20 [History] Omeprazole 20 mg PO PCBREAKFAST 09/04/20 [History] Rifaximin [Xifaxan] 550 mg PO BID 09/04/20 [History] Aspirin 325 mg PO DAILY #28 tablet 09/06/20 [Rx] Past Medical History HEENT History: Reports: Impaired Vision Cardiovascular History: Reports: Hypertension Respiratory History: Reports: Asthma, COPD, Other (See Below) Other Respiratory History: Empysema Gastrointestinal History: Reports: Cholelithiasis, Cirrhosis, GERD Genitourinary History: Reports: UTI, Recurrent [employer] EXPERT History: Reports: Musculoskeletal History: Reports: Arthritis, Back Pain, Chronic Neurological History: Reports: None Psychiatric History: Reports: None Endocrine/Metabolic History: Reports: Diabetes, Type II, Hypothyroidism, IDDM, Obesity/BMI 30+ Hematologic History: Reports: None Immunologic History: Reports: None Oncologic (Cancer) History: Reports: None Dermatologic History: Reports: Other (See Below) Other Dermatologic History: skin thick and discolored to extremities - Infectious Disease History Infectious Disease History: Reports: None - Past Surgical History Head Surgeries/Procedures: Reports: None GI Surgical History: Reports: Cholecystectomy, Hernia Repair/Other Female Surgical History: Reports: Section Musculoskeletal Surgical History: Reports: Other (See Below) Other Musculoskeletal Surgeries/Procedures:: Emil in left leg. Femur bone with pins in knee Social & Family History - Family History Family Medical History: No Pertinent Family History - Caffeine Use Caffeine Use: Reports: Coffee - Living Situation & Occupation Living situation: Reports: , with Family Occupation: Unemployed ED ROS GENERAL - Review of Systems Review Of Systems: Unable To Obtain (Patient lethargic and disoriented) Reason Not Obtained: Lethargy - Physical Exam Exam: See Below Exam Limited By: Altered Mental Status (Lethargy) General Appearance: Lethargic, Obese Eye Exam: Bilateral Eye: PERRL (5mm), Other (Jaundice; Unable to follow eye examination) Throat/Mouth: Normal Oropharynx (Dry mucous membranes) Head Exam: Atraumatic, Normocephalic Respiratory/Chest: Lungs Clear, Normal Breath Sounds, No Accessory Muscle Use, Chest Non-Tender. No: Crackles, Rales, Rhonchi, Wheezing, Pleural Rub Cardiovascular: Regular Rate, Rhythm, No Edema, No Gallop, No JVD, No Murmur, No Rub GI/Abdominal: Soft, Pelvis Stable, Distended, Abnormal Bowel Sounds (Hypoactive), Other (Gross ascites). No: Guarding, Rigid, Rebound, Tender (Female) Exam: Deferred Rectal (Female) Exam: Deferred Neuro Exam (Abbreviated): Inattentive, Unresponsive Extremities: Non-Tender, Pedal Edema (+2, pitting bilaterally) Skin Exam: Dry, Intact, Jaundice. No: Ecchymosis, Erythema, Mottled, Pallor Course - Vital Signs Last Recorded V/S: Last Vital Signs Temp 96.1 F L 09/28/20 12:00 Pulse 77 09/28/20 12:00 Resp 14 09/28/20 12:00 BP 94/41 L 09/28/20 12:00 Pulse Ox 98 09/28/20 12:00 - Orders/Labs/Meds Orders: Active Orders 24 hr Category Date Time Status Albumin 5% [Buminate 5%] 250 ml Med 09/28/20 12:00 Active IV ASDIRECTED Medication Orders Albumin Human (Buminate 5%) 250 mls @ 250 mls/hr IV ASDIRECTED ZAKIYA Last Admin: 09/28/20 12:32 Dose: 250 mls/hr Documented by: NICOLASA Labs: Laboratory Tests 09/28/20 09/28/20 09/28/20 Range/Units 11:35 11:35 11:35 WBC 4.7 L (5.0-10.0) 10^3/uL RBC 2.98 L (4.2-5.4) 10^6/uL Hgb 10.4 L (12.0-16.0) g/dL Hct 30.6 L (37.0-47.0) % MCV 102.7 H (80-100) fL MCH 34.9 H (27.0-34.0) pg MCHC 34.0 (33.0-35.0) g/dL Plt Count 77 L (150-450) 10^3/uL Neut % (Auto) 70.5 (42.2-75.2) % Lymph % (Auto) 15.3 L (20.5-50.1) % Reynolds % (Auto) 10.0 H (2-8) % Eos % (Auto) 4.0 H (1.0-3.0) % Baso % (Auto) 0.2 (0.0-1.0) % Add Manual Diff Yes Neutrophils % (Manual) 75 (42-75) % Band Neutrophils % 3 % Lymphocytes % (Manual) 17 L (20-50) % Monocytes % (Manual) 3 (2-8) % Eosinophils % (Manual) 2 (1-3) % PT (9.0-12.0) SEC INR (0.9-1.2) APTT (22.0-34.0) SEC D-Dimer, Quantitative 2310 H (0-400) ng/mL ABG pH (7.35-7.45) ABG pCO2 (35-45) mmHg ABG pO2 (70-100) mmHg ABG HCO3 (22-26) mmol/L ABG O2 Saturation (95-100) % ABG Base Excess ((-2)-(+3)) mmol/L Baltazar Test O2 Delivery Device Oxygen Flow Rate Sodium 139 (136-145) mmol/L Potassium 4.1 (3.5-5.1) mmol/L Chloride 110 H (98-107) mmol/L Carbon Dioxide 21 (21-32) mmol/L Anion Gap 12.1 (7-13) mEq/L BUN 28 H (7-18) mg/dL Creatinine 1.35 H (0.55-1.02) mg/dL Est Cr Clr Drug Dosing 36.36 mL/min Estimated GFR (MDRD) 40 BUN/Creatinine Ratio 20.7 (No establ ref range) Glucose 112 H (74-99) mg/dL Lactic Acid (0.4-2.0) mmol/L Calcium 7.9 L (8.5-10.1) mg/dL Magnesium 2.6 H (1.8-2.4) mg/dL Total Bilirubin 3.9 H (0.2-1.0) mg/dL AST 168 H (15-37) U/L ALT 56 (14-59) U/L Alkaline Phosphatase 498 H (46-116) U/L Ammonia (11-32) umol/L Troponin I (0.000-0.056) ng/mL Total Protein 6.3 L (6.4-8.2) g/dL Albumin 1.7 L (3.4-5.0) g/dL Globulin 4.6 Albumin/Globulin Ratio 0.37 09/28/20 09/28/20 09/28/20 Range/Units 11:35 11:35 11:35 WBC (5.0-10.0) 10^3/uL RBC (4.2-5.4) 10^6/uL Hgb (12.0-16.0) g/dL Hct (37.0-47.0) % MCV (80-100) fL MCH (27.0-34.0) pg MCHC (33.0-35.0) g/dL Plt Count (150-450) 10^3/uL Neut % (Auto) (42.2-75.2) % Lymph % (Auto) (20.5-50.1) % Reynolds % (Auto) (2-8) % Eos % (Auto) (1.0-3.0) % Baso % (Auto) (0.0-1.0) % Add Manual Diff Neutrophils % (Manual) (42-75) % Band Neutrophils % % Lymphocytes % (Manual) (20-50) % Monocytes % (Manual) (2-8) % Eosinophils % (Manual) (1-3) % PT 15.0 H (9.0-12.0) SEC INR 1.6 H (0.9-1.2) APTT 37.7 H (22.0-34.0) SEC D-Dimer, Quantitative (0-400) ng/mL ABG pH (7.35-7.45) ABG pCO2 (35-45) mmHg ABG pO2 (70-100) mmHg ABG HCO3 (22-26) mmol/L ABG O2 Saturation (95-100) % ABG Base Excess ((-2)-(+3)) mmol/L Baltazar Test O2 Delivery Device Oxygen Flow Rate Sodium (136-145) mmol/L Potassium (3.5-5.1) mmol/L Chloride (98-107) mmol/L Carbon Dioxide (21-32) mmol/L Anion Gap (7-13) mEq/L BUN (7-18) mg/dL Creatinine (0.55-1.02) mg/dL Est Cr Clr Drug Dosing mL/min Estimated GFR (MDRD) BUN/Creatinine Ratio (No establ ref range) Glucose (74-99) mg/dL Lactic Acid 1.8 (0.4-2.0) mmol/L Calcium (8.5-10.1) mg/dL Magnesium (1.8-2.4) mg/dL Total Bilirubin (0.2-1.0) mg/dL AST (15-37) U/L ALT (14-59) U/L Alkaline Phosphatase (46-116) U/L Ammonia 289 H (11-32) umol/L Troponin I (0.000-0.056) ng/mL Total Protein (6.4-8.2) g/dL Albumin (3.4-5.0) g/dL Globulin Albumin/Globulin Ratio 09/28/20 09/28/20 Range/Units 11:35 12:25 WBC (5.0-10.0) 10^3/uL RBC (4.2-5.4) 10^6/uL Hgb (12.0-16.0) g/dL Hct (37.0-47.0) % MCV (80-100) fL MCH (27.0-34.0) pg MCHC (33.0-35.0) g/dL Plt Count (150-450) 10^3/uL Neut % (Auto) (42.2-75.2) % Lymph % (Auto) (20.5-50.1) % Reynolds % (Auto) (2-8) % Eos % (Auto) (1.0-3.0) % Baso % (Auto) (0.0-1.0) % Add Manual Diff Neutrophils % (Manual) (42-75) % Band Neutrophils % % Lymphocytes % (Manual) (20-50) % Monocytes % (Manual) (2-8) % Eosinophils % (Manual) (1-3) % PT (9.0-12.0) SEC INR (0.9-1.2) APTT (22.0-34.0) SEC D-Dimer, Quantitative (0-400) ng/mL ABG pH 7.36 (7.35-7.45) ABG pCO2 33 L (35-45) mmHg ABG pO2 78 (70-100) mmHg ABG HCO3 18.2 L (22-26) mmol/L ABG O2 Saturation 96 (95-100) % ABG Base Excess -6 L ((-2)-(+3)) mmol/L Baltazar Test pos O2 Delivery Device Room air Oxygen Flow Rate 0 Sodium (136-145) mmol/L Potassium (3.5-5.1) mmol/L Chloride (98-107) mmol/L Carbon Dioxide (21-32) mmol/L Anion Gap (7-13) mEq/L BUN (7-18) mg/dL Creatinine (0.55-1.02) mg/dL Est Cr Clr Drug Dosing mL/min Estimated GFR (MDRD) BUN/Creatinine Ratio (No establ ref range) Glucose (74-99) mg/dL Lactic Acid (0.4-2.0) mmol/L Calcium (8.5-10.1) mg/dL Magnesium (1.8-2.4) mg/dL Total Bilirubin (0.2-1.0) mg/dL AST (15-37) U/L ALT (14-59) U/L Alkaline Phosphatase (46-116) U/L Ammonia (11-32) umol/L Troponin I 0.080 H* (0.000-0.056) ng/mL Total Protein (6.4-8.2) g/dL Albumin (3.4-5.0) g/dL Globulin Albumin/Globulin Ratio Meds: Medications Generic Name Dose Route Start Last Admin Trade Name Freq PRN Reason Stop Dose Admin Albumin Human 250 mls @ 250 mls/hr 09/28/20 12:00 09/28/20 12:32 Buminate 5% IV 250 mls/hr ASDIRECTED ZAKIYA Administration Discontinued Medications Generic Name Dose Route Start Last Admin Trade Name Freq PRN Reason Stop Dose Admin Lactulose 40 gm 09/28/20 12:21 09/28/20 12:32 Cephulac PO 09/28/20 12:22 40 gm ONETIME ONE Administration - Re-Assessments/Exams Free Text/Narrative Re-Assessment/Exam: 09/28/20 Patient hypotensive upon arrival to ED, BP 90/39 (53) and 93/53 (60) upon recheck. Albumin 5% administered. Patient lethargic and not responding to questions, but is maintaining airway appropriately. ABG unremarkable with pH of 7.3, pCO2 33, pO2 78, HCO3 18.2. Creatinine 1.39. Ammonia 289. 40g Lactulose enema administered. As patient was discharged from [facility] 5 days prior, case discussed with Dr. Nation from [place]. He kindly agreed to accept the patient; he would like the patient evaluated in the ED prior to acceptance to the Med/Surg floor for evaluation of ICU need. Departure - Departure Time of Disposition: 13:08 Disposition: DC/Tfer to [facility] Condition: Good Clinical Impression: Hepatic encephalopathy, Increased ammonia level, Elevated d-dimer, Hyperammonemia Hypotension Qualifiers: Hypotension type: unspecified hypotension type Qualified Code(s): I95.9 - Hypotension, unspecified Cirrhosis of liver Qualifiers: Hepatic cirrhosis type: unspecified hepatic cirrhosis Ascites presence: unspecified Qualified Code(s): K74.60 - Unspecified cirrhosis of liver - Discharge Information Forms: ED Department Discharge, Interfacility Transfer [facility] Sepsis Event Note (ED) - Focused Exam Vital Signs: Vital Signs Temp Pulse Resp BP Pulse Ox 09/28/20 12:00 96.1 F L 77 14 94/41 L 98 - My Orders Last 24 Hours: My Active Orders 09/28/20 12:00 Albumin 5% [Buminate 5%] 250 ml IV ASDIRECTED - Assessment/Plan Last 24 Hours: My Active Orders 09/28/20 12:00 Albumin 5% [Buminate 5%] 250 ml IV ASDIRECTED
[2020-09-28] MEDS ORDERED: Albumin 5% 250 ML IV SCH (12:00)
[2020-09-28 12:02] LABS: ANION GAP 12.1 mEq/L (7-13)
[2020-09-28] MEDS ORDERED: Lactulose Soln 10 GM/15 ML 30 ML UD Cup PO ONE (12:21)
[2020-09-28 12:27] LABS: BASE EXCESS ARTERIAL -6 mmol/L ((-2)-(+3)); BICARBONATE,ARTERIAL 18.2 mmol/L (22-26); O2 DELIVERY DEVICE ROOM AIR; O2 SATURATION ARTERIAL 96 % (95-100); PCO2 ARTERIAL 33 mmHg (35-45); PO2 ARTERIAL 78 mmHg (70-100)
[2020-09-28 12:29] LABS: ALLEN TEST pos; O2 FLOW RATE 0
[2020-09-28 12:49] LABS: PTT,PARTIAL THROMBOPLSTIN TIME 37.7 SEC (22.0-34.0)
[2020-09-28] MEDS ORDERED: Norepinephrine 4 MG/4 ML SDV ONE (13:36)
[2020-09-28 13:45] VITALS: BP 75/38; PULSE 84
[2020-09-28] MEDS ORDERED: Norepinephrine 4 MG in Dextrose 5% in Water 246 ML IV SCH ×2 (13:45)
== END 2020-09-28 15:47 ==
LOC: DL.ED 11:34
DX: K72.90 Hepatic failure, unspecified without coma (principal); K74.60 Unspecified cirrhosis of liver; I95.9 Hypotension, unspecified; E72.20 Disorder of urea cycle metabolism, unspecified; I10 Essential (primary) hypertension; J44.9 Chronic obstructive pulmonary disease, unspecified; K21.9 Gastro-esophageal reflux disease without esophagitis; M19.90 Unspecified osteoarthritis, unspecified site; E11.9 Type 2 diabetes mellitus without complications; E03.9 Hypothyroidism, unspecified; E66.9 Obesity, unspecified; Z68.43 Body mass index [BMI] 50.0-59.9, adult; Z79.4 Long term (current) use of insulin; Z79.82 Long term (current) use of aspirin; Z88.6 Allergy status to analgesic agent; Z88.8 Allergy status to other drugs, medicaments and biological substances; Z88.1 Allergy status to other antibiotic agents; Z88.0 Allergy status to penicillin; Z91.018 Allergy to other foods; Z88.2 Allergy status to sulfonamides; Z79.899 Other long term (current) drug therapy
CPT/HCPCS: 36415; 80053; 82140; 82803; 83605; 83735; 84484; 85025; 85379; 85610; 85730; 96365; 96366; 96367; 99285; A9270; J7060; P9045; 36600